=== PATIENT | male | born 1955 | race Caucasian/White ===

== ENCOUNTER 2017-04-19 11:16 | Emergency (ER) | payer OTHER ==
[2017-04-19] MEDS ORDERED: ALBUTEROL NEB 2.5 MG/3 ML INH STA (11:27)
[2017-04-19] MEDS ORDERED: DEXAMETHASONE 10 MG/ML VIAL PO STA (11:32)
[2017-04-19] MEDS ORDERED: ALBUTEROL NEB 2.5 MG/3 ML INH ONE (11:37)
[2017-04-19] MEDS ORDERED: CHERRY SYRUP 10 ML UDC PO ONE (11:52)
[2017-04-19] MEDS ORDERED: DEXAMETHASONE 10 MG/ML VIAL ONE (11:52)
--- NOTE | 2017-04-19 12:14 | XRAY Preliminary Report ---
Exam: XR Chest 2 View PA/LAT IMPRESSION: 1. Minimal left lower lobe airspace disease, favor atelectasis, less likely pneumonia. 2. Marked right hemidiaphragm elevation.. [facility] SITE ID: [id number]
--- NOTE | 2017-04-19 12:17 | XRAY Report ---
EXAM: CHEST RADIOGRAPHY EXAM DATE: 04/19/2017 11:40 AM. CLINICAL HISTORY: Cough soa. COMPARISON: None. TECHNIQUE: 2 views. FINDINGS: Lungs/Pleura: Minimal left lower lobe airspace opacities. No pleural effusion or pneumothorax. Marked right hemidiaphragm elevation Mediastinum: Visible heart size normal Other: None. IMPRESSION: 1. Minimal left lower lobe airspace disease, favor atelectasis, less likely pneumonia. 2. Marked right hemidiaphragm elevation.. [facility] Referring Provider Line: [phone] SITE ID: [id number]
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
[2017-04-19 12:52] VITALS: BP 155/82
== END 2017-04-19 12:59 | disposition home or self-care (01) ==
LOC: ED 11:16
DX: J45.901 Unspecified asthma with (acute) exacerbation (principal); I10 Essential (primary) hypertension; Z87.891 Personal history of nicotine dependence
CPT/HCPCS: 71020; 94640; 99283; 99284; A9270; J7613

== ENCOUNTER 2017-10-12 05:04 | Emergency (ER) | payer OTHER ==
[2017-10-12] MEDS ORDERED: IPRATROPIUM/ALBUTEROL 3 ML NEB INH STA (06:19)
[2017-10-12 06:23] VITALS: BP 143/101
[2017-10-12] MEDS ORDERED: DEXAMETHASONE 10 MG/ML VIAL PO STA (07:30)
--- NOTE | 2017-10-12 07:40 | ED Physician Documentation ---
PD HPI DYSPNEA - Stated complaint Stated Complaint: SOA - Chief complaint Chief Complaint: Resp - History obtained from History obtained from: Patient, Family - History of Present Illness Timing - onset: How many days ago (4) Timing - duration: Days (4) Timing - details: Still present Improved by: Inhaler/neb Associated symptoms: Fever, Cough Similar symptoms before: Diagnosis (Has history of asthma and paralyzed right hemidiaphragm.) - Treatment prior to arrival Treatment prior to arrival: DuoNeb nebulizer. - Additional information Additional information: The patient is a 62-year-old male with history of asthma and paralyzed right hemidiaphragm, who presents with shortness of breath and productive cough that started 4 days ago and has been progressing since that time. He reports intermittent fever as well as sore throat. His nebulizer treatments provide temporary improvement. He presents to the emergency department requesting steroid treatment. He has history of similar symptoms in the past, and usually the addition of steroid therapy to his nebulizer treatments adequately treats his symptoms. He denies headache, chest pain, or abdominal pain. He is 4 weeks status post bilateral inguinal hernia repairs. Review of Systems Constitutional: reports: Fever Ears: denies: Ear pain Nose: denies: Congestion Throat: reports: Sore throat Cardiac: denies: Chest pain / pressure Respiratory: reports: Dyspnea, Cough GI: denies: Abdominal Pain, Nausea, Vomiting : denies: Dysuria Skin: denies: Rash Musculoskeletal: denies: Extremity swelling Neurologic: denies: Focal weakness, Numbness, Headache PD PAST MEDICAL HISTORY - Past Medical History Cardiovascular: Hypertension, Other Respiratory: Asthma, Other (Paralyzed right hemidiaphragm) Endocrine/Autoimmune: None - Past Surgical History General: Other (4 weeks S/P bilateral inguinal hernia repairs) Ortho: Other Derm: Other - Present Medications Home Medications: Ambulatory Orders Medication Instructions Recorded Confirmed Albuterol Sulfate [Proventil Hfa 1 puffs INH .FREQ 01/26/16 10/12/17 Inhaler] Atorvastatin [Lipitor] 20 mg PO DAILY 01/26/16 10/12/17 Bupropion HCl [Wellbutrin] 450 mg PO DAILY 01/26/16 10/12/17 Losartan [Cozaar] 120 mg PO DAILY 01/26/16 10/12/17 Montelukast [Singulair] 1 tab PO DAILY 01/26/16 10/12/17 amLODIPine [Norvasc] 10 mg PO DAILY 01/26/16 10/12/17 Ciclesonide [Alvesco] 6.1 gm IH 04/19/17 Ipratropium/Albuterol [Combivent 2 puffs IH Q6H #1 aer.w.adap 04/19/17 10/12/17 Respimat] - Allergies Allergies/Adverse Reactions: Allergies Allergy/AdvReac Type Severity Reaction Status Date / Time No Known Drug Allergies Allergy Verified 01/26/16 17:06 - Living Situation Living Situation: reports: With spouse/s.o. - Social History Does the pt smoke?: No Smoking Status: Never smoker Does the pt drink ETOH?: Yes Does the pt have substance abuse?: No - Immunizations Immunizations are current?: Yes PD ED PE NORMAL - Vitals Vital signs reviewed: Yes (hypertensive) - General General: Alert and oriented X 3, Well developed/nourished - HEENT HEENT: Atraumatic, Ears normal, Pharynx benign - Neck Neck: Supple, no meningeal sign, No adenopathy, No JVD - Cardiac Cardiac: RRR, No murmur - Respiratory Respiratory: Other (Appears to be in respiratory distress, sitting up on the edge of the bed to assist with ventilation. He has diffuse bilateral expiratory wheezes with prolonged expiratory phase. Breath sounds are diminished on the right compared to the left, consistent with paralyzed hemidiaphragm.) - Abdomen Abdomen: Soft, Non tender - Back Back: No CVA TTP - Derm Derm: No rash - Extremities Extremities: No edema, No calf tenderness / cord - Neuro Neuro: Alert and oriented X 3, No motor deficit, Normal speech Results - Vitals Vitals: Oxygen O2 Source Room air - Labs Labs: Laboratory Tests 10/12/17 06:20 Influenza A (Rapid) Negative Influenza B (Rapid) Negative Influenza Types A,B Ag - PD MEDICAL DECISION MAKING - ED course Complexity details: reviewed old records, reviewed results, re-evaluated patient , considered differential, d/w patient, d/w family ED course: The patient's presentation is most consistent with viral respiratory infection, with acute asthmatic bronchitis. Influenza swab is negative. I discussed with the patient whether or not to get a chest x-ray, and he prefers not to get chest x-ray, stating he knows it will show elevation of his right hemidiaphragm , and he prefers not to get more radiation. Treatment in the emergency department included administration of DuoNeb nebulizer and oral dexamethasone, 10 mg. On repeat examination, auscultation reveals improved air movement, but continued expiratory wheezing. The patient feels subjectively much improved, and prefers to be discharged without further treatment, but requests 12 day prednisone taper. He is being discharged with prescription for prednisone. I discussed with him and his continued treatment, outpatient follow-up, as well as potentially worrisome signs or symptoms that should prompt reevaluation in the emergency department. Departure - Departure Disposition: 01 Home, Self Care Clinical Impression: Paralyzed hemidiaphragm Asthma exacerbation Qualifiers: Asthma severity: unspecified severity Asthma persistence: unspecified Qualified Code(s): J45.901 - Unspecified asthma with (acute) exacerbation Condition: Stable Instructions: ED Bronchitis Asthmatic Follow-Up: ROSANA ELI DO [Physician No Access] - Comments: Continue albuterol nebulizer treatments at home. Take prednisone, 12 day taper, as prescribed. Follow up with your primary physician within 1 week. Call to schedule appointment. Return to the emergency department if you develop increasing difficulty breathing, or otherwise worsening symptoms. Discharge Date/Time: 10/12/17 07:40
[2017-10-12] MEDS ORDERED: DEXAMETHASONE 10 MG/ML VIAL ONE (07:44)
[2017-10-12] MEDS ORDERED: CHERRY SYRUP 10 ML UDC PO ONE (07:44)
== END 2017-10-12 07:40 | disposition home or self-care (01) ==
LOC: ED 05:04
DX: J98.6 Disorders of diaphragm (principal); J45.901 Unspecified asthma with (acute) exacerbation; I10 Essential (primary) hypertension
CPT/HCPCS: 87275; 87276; 94640; 99283; A9270; J7620

== ENCOUNTER 2019-05-05 13:29 | Outpatient (CLI) | payer OTHER | END 2019-05-05 13:30 | disposition home or self-care (01) | LOC: LAB 13:29 | PROVIDERS: ATTEND Internal Medicine | DX: Z01.812 Encounter for preprocedural laboratory examination (principal) | CPT/HCPCS: 36415; 85014 ==

== ENCOUNTER 2019-06-07 00:10 | Observation (INO) | payer OTHER ==
[2019-06-07] MEDS ORDERED: SODIUM CHLORIDE 0.9% 1,000 ML IV ONE ×3 (00:37→01:30)
--- NOTE | 2019-06-07 00:43 | ED Physician Documentation ---
History of Present Illness - Stated complaint Stated Complaint: FEVER,CHILLS,DIZZY - Chief complaint Chief Complaint: General - History obtained from History obtained from: Patient, Family - History of Present Illness Timing: Today Pain level max: 3 Pain level now: 2 - Additonal information Additional information: 64-year-old male presents to the emergency department stating that he developed fevers and body aches today. Has a history of asthma. Has a right-sided hemidiaphragm but is paralyzed. 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 No significant coughing. Does have burning with urination. No back pain. No abdominal pain. Nausea but no vomiting. No diarrhea but some constipation. Has been taking Tylenol at home. Nothing makes it better or worse. Review of Systems Ten Systems: 10 systems reviewed and negative Constitutional: reports: Fever, Chills Ears: denies: Ear pain Throat: denies: Sore throat GI: reports: Nausea. denies: Abdominal Pain, Vomiting, Diarrhea, Hematemesis, Bloody / black stool Skin: denies: Rash Musculoskeletal: denies: Neck pain, Back pain Neurologic: reports: Headache (intermittent for a few days, has chronic sinus issues) PD PAST MEDICAL HISTORY - Past Medical History Cardiovascular: Hypertension, Other Respiratory: Asthma, Other (Paralyzed right hemidiaphragm) Endocrine/Autoimmune: None - Past Surgical History General: Other (4 weeks S/P bilateral inguinal hernia repairs) Ortho: Other Derm: Other - Present Medications Home Medications: Ambulatory Orders Medication Instructions Recorded Confirmed Albuterol Sulfate [Proventil Hfa 1 puffs INH PRN PRN 01/26/16 10/12/17 Inhaler] Bupropion HCl [Wellbutrin] 450 mg PO DAILY 01/26/16 10/12/17 Losartan [Cozaar] 100 mg PO DAILY 01/26/16 10/12/17 Montelukast [Singulair] 1 tab PO DAILY 01/26/16 10/12/17 Ciclesonide [Alvesco] 2 puffs IH BID 04/19/17 Atorvastatin [Lipitor] 10 mg PO DAILY 06/07/19 06/07/19 Candesartan/Hydrochlorothiazid 8 mg PO DAILY 06/07/19 06/07/19 [Atacand Hct 16-12.5 mg Tab] Dupilumab [Dupixent] 300 mg SQ 06/07/19 Furosemide 40 mg PO DAILY 06/07/19 06/07/19 Ipratropium/Albuterol [Combivent 2 puffs IH Q6H PRN 06/07/19 Respimat] Prazosin [Minipress] 4 mg PO DAILY 06/07/19 06/07/19 Salmeterol Xinafoate [Serevent 1 puffs INH BID 06/07/19 06/07/19 Diskus] Testosterone Cypionate 200 mg IM 06/07/19 lamoTRIgine [Lamictal] 150 mg PO DAILY 06/07/19 06/07/19 oxyCODONE [Roxicodone] 5 mg PO PRN PRN 06/07/19 06/07/19 - Allergies Allergies/Adverse Reactions: Allergies Allergy/AdvReac Type Severity Reaction Status Date / Time No Known Drug Allergies Allergy Verified 01/26/16 17:06 - Social History Does the pt smoke?: No Smoking Status: Never smoker Does the pt drink ETOH?: Yes Does the pt have substance abuse?: No - Immunizations Immunizations are current?: Yes PD ED PE NORMAL - Vitals Vital signs reviewed: Yes - General General: Alert and oriented X 3, No acute distress, Well developed/nourished - HEENT HEENT: PERRL, Ears normal, Moist mucous membranes, Pharynx benign - Neck Neck: Supple, no meningeal sign - Cardiac Cardiac: RRR, Strong equal pulses - Respiratory Respiratory: No respiratory distress, Clear bilaterally - Abdomen Abdomen: Soft, Non tender, Non distended - Derm Derm: Warm and dry, No rash - Extremities Extremities: No edema, No calf tenderness / cord - Neuro Neuro: Alert and oriented X 3 - Psych Psych: Normal mood, Normal affect Results - Vitals Vitals: Vital Signs - 24 hr 06/07/19 06/07/19 00:23 02:09 Temperature 38.4 C H 36.7 C Heart Rate 106 H 82 Respiratory 20 20 Rate Blood Pressure 117/61 128/74 O2 Saturation 94 95 Oxygen O2 Source Room air - Labs Labs: Laboratory Tests 06/07/19 06/07/19 06/07/19 00:42 00:42 00:42 WBC 18.1 H RBC 4.61 L Hgb 13.6 L Hct 40.3 L MCV 87.4 MCH 29.5 MCHC 33.7 RDW 13.4 Plt Count 253 MPV 9.5 Neut # (Auto) Not Reportable Lymph # (Auto) Not Reportable [place] # (Auto) Not Reportable Eos # (Auto) Not Reportable Baso # (Auto) Not Reportable Absolute Nucleated RBC Not Reportable Total Counted 100 Band Neuts % (Manual) 0 Abnorm Lymph % (Manual) 0 Nucleated RBC % Not Reportable Neutrophils # (Manual) 14.8 H Lymphocytes # (Manual) 2.0 Monocytes # (Manual) 1.3 H Eosinophils # (Manual) 0.0 Basophils # (Manual) 0.0 Differential Comment MANUAL DIFFERENTIAL WBC Morphology NORMAL APPEARANCE Platelet Estimate NORMAL (130-450,000) Platelet Morphology NORMAL APPEARANCE RBC Morph Micro Appear NORMAL APPEARANCE Sodium 139 Potassium 3.1 L Chloride 104 Carbon Dioxide 26 Anion Gap 9.0 BUN 26 H Creatinine 1.2 Estimated GFR (MDRD) 61 L Glucose 134 H Lactic Acid 1.2 Calcium 8.9 Total Bilirubin 0.8 AST 20 ALT 24 Alkaline Phosphatase 64 Total Protein 6.5 L Albumin 3.7 Globulin 2.8 Albumin/Globulin Ratio 1.3 Lipase 32 Urine Color Urine Clarity Urine pH Ur Specific [place] Urine Protein Urine Glucose (UA) Urine Ketones Urine Occult Blood Urine Nitrite Urine Bilirubin Urine Urobilinogen Ur Leukocyte Esterase Urine RBC Urine WBC Ur Squamous Epith Cells Urine Bacteria Ur Microscopic Review Influenza A (Rapid) Influenza B (Rapid) 06/07/19 06/07/19 00:52 01:55 WBC RBC Hgb Hct MCV MCH MCHC RDW Plt Count MPV Neut # (Auto) Lymph # (Auto) [place] # (Auto) Eos # (Auto) Baso # (Auto) Absolute Nucleated RBC Total Counted Band Neuts % (Manual) Abnorm Lymph % (Manual) Nucleated RBC % Neutrophils # (Manual) Lymphocytes # (Manual) Monocytes # (Manual) Eosinophils # (Manual) Basophils # (Manual) Differential Comment WBC Morphology Platelet Estimate Platelet Morphology RBC Morph Micro Appear Sodium Potassium Chloride Carbon Dioxide Anion Gap BUN Creatinine Estimated GFR (MDRD) Glucose Lactic Acid Calcium Total Bilirubin AST ALT Alkaline Phosphatase Total Protein Albumin Globulin Albumin/Globulin Ratio Lipase Urine Color YELLOW Urine Clarity CLEAR Urine pH 5.5 Ur Specific [place] 1.020 Urine Protein NEGATIVE Urine Glucose (UA) NEGATIVE Urine Ketones NEGATIVE Urine Occult Blood SMALL H Urine Nitrite NEGATIVE Urine Bilirubin NEGATIVE Urine Urobilinogen 0.2 (NORMAL) Ur Leukocyte Esterase SMALL H Urine RBC 0-5 Urine WBC 11-25 H Ur Squamous Epith Cells RARE Squamous Urine Bacteria Moderate H Ur Microscopic Review INDICATED Influenza A (Rapid) Negative Influenza B (Rapid) Negative - Rads (name of study) cxr Radiology: Prelim report reviewed, EMP read contemporaneously, See rad report (No acute abnormality) PD MEDICAL DECISION MAKING - ED course Complexity details: reviewed results, re-evaluated patient, considered differential, d/w patient ED course: 64-year-old male presents to the emergency room with a fever and tachycardia today. Appears to be urinary in source. Given Rocephin. Lactate is normal. White count is 18 with a left shift. Blood cultures drawn. Given IV fluids. Patient will be placed in observation. Discussed the case with Dr. Crowe hospitalist who accepts. This document was made in part using voice recognition software. While efforts are made to proofread this document, sound alike and grammatical errors may occur. Departure - Departure Disposition: ED Place in Observation Clinical Impression: UTI (urinary tract infection) Qualifiers: Urinary tract infection type: acute cystitis Hematuria presence: without hemat uria Qualified Code(s): N30.00 - Acute cystitis without hematuria Fever Qualifiers: Fever type: unspecified Qualified Code(s): R50.9 - Fever, unspecified Leukocytosis Qualifiers: Leukocytosis type: bandemia Qualified Code(s): D72.825 - Bandemia Condition: Stable
[2019-06-07 00:48] LABS: BASOPHILS % (AUTO) 0.3 %; EOSINOPHILS % (AUTO) 1.1 %; HGB - HEMOGLOBIN 13.6 g/dL (14.0-18.0); LYMPHOCYTES % (AUTO) 7.7 %; MEAN CORPUSCULAR HEMOGLOBIN 29.5 pg (27.0-31.0); MEAN CORPUSCULAR HGB CONC 33.7 g/dL (32.0-36.0); MEAN CORPUSCULAR VOLUME 87.4 fL (80.0-94.0); MEAN PLATELET VOLUME 9.5 fL (7.4-11.4); MONOCYTES % (AUTO) 12.6 %; NEUTROPHILS % (AUTO) 77.7 %; PLT - PLATELET COUNT 253 10^3/uL (130-450); RED BLOOD COUNT 4.61 10^6/uL (4.70-6.10); RED CELL DISTRIBUTION WIDTH 13.4 % (12.0-15.0); WHITE BLOOD COUNT 18.1 x10^3/uL (4.8-10.8)
[2019-06-07 00:54] LABS: ABNORMAL LYMPHS % (MANUAL) 0 %; BAND NEUTROPHILS % (MANUAL) 0 %
[2019-06-07 01:01] LABS: ALBUMIN 3.7 g/dL (3.2-5.5); ALBUMIN/GLOBULIN RATIO 1.3 (1.0-2.2); BILIRUBIN,TOTAL 0.8 mg/dL (0.2-1.0); CALCIUM 8.9 mg/dL (8.5-10.3); CREATININE 1.2 mg/dL (0.6-1.2); TOTAL PROTEIN 6.5 g/dL (6.7-8.2)
[2019-06-07 01:41] LABS: LYMPHOCYTES % (MANUAL) 11 %; MONOCYTES # (MANUAL) 1.3 10^3/uL (0.0-1.0)
[2019-06-07 01:43] LABS: DIFFERENTIAL COMMENT MANUAL DIFFERENTIAL; PLATELET ESTIMATE, MANUAL NORMAL (130-450,000) (NORMAL); PLATELET MORPHOLOGY NORMAL APPEARANCE (NORMAL); RBC MORPHOLOGY (MULTIPLE) NORMAL APPEARANCE (NORMAL)
[2019-06-07 01:58] LABS: BILIRUBIN,URINE NEGATIVE (NEGATIVE); CLARITY,URINE CLEAR (CLEAR); GLUCOSE, URINE (UA) NEGATIVE (NEGATIVE); KETONES,URINE (UA) NEGATIVE (NEGATIVE); LEUKOCYTE ESTERASE, URINE SMALL (NEGATIVE); NITRITE,URINE NEGATIVE (NEGATIVE); OCCULT BLOOD,URINE SMALL (NEGATIVE); PH,URINE 5.5 PH (5.0-7.5); PROTEIN,URINE NEGATIVE (NEGATIVE); UROBILINOGEN,URINE 0.2 (NORMAL) E.U./dL (NORMAL)
[2019-06-07 02:10] LABS: BACTERIA,URINE Moderate /HPF (None Seen); RBC,URINE 0-5 /HPF (0-5); SQUAMOUS EPITHELIAL CELL,UR RARE Squamous (<= Few)
[2019-06-07] MEDS ORDERED: cefTRIAXone 1 GM VIAL IVP STA (02:18)
--- NOTE | 2019-06-07 02:39 | XRAY Report ---
Reason: fever Procedure Date: 06/07/2019 Accession Number: [id number] / [id number] Procedure: XR - Chest 2 View X-Ray CPT Code: 12258 FULL RESULT: EXAM: CHEST RADIOGRAPHY EXAM DATE: 06/07/2019 02:26 AM CLINICAL HISTORY: Fever. COMPARISON: XR CHEST 2 VIEWS 05/13/2019 6:34 AM, CT CHEST W CONTRAST 04/01/2019 10:05 AM. TECHNIQUE: 2 views. FINDINGS: Lungs/Pleura: Chronic right hemidiaphragm elevation. No focal pneumonia or edema. No pneumothorax or significant effusion. Mediastinum: Heart and mediastinal contours are stable, within normal limits. Other: None. IMPRESSION: No acute process seen in the chest. [facility]
[2019-06-07] MEDS ORDERED: IBUPROFEN 800 MG TABLET PO STA (02:52)
[2019-06-07] MEDS ORDERED: SODIUM CHLORIDE FLUSH 0.9% 10 ML SYRINGE IVP PRN (03:34)
[2019-06-07] MEDS ORDERED: ONDANSETRON 4 MG/2 ML VIAL IVP PRN (03:34)
[2019-06-07] MEDS ORDERED: SODIUM CHLORIDE 0.9% 1,000 ML IV SCH (04:00)
[2019-06-07] MEDS ORDERED: IPRATROPIUM/ALBUTEROL 3 ML NEB INH PRN (04:05)
[2019-06-07] MEDS ORDERED: POTASSIUM CHLORIDE 20 MEQ TABLET PO ONE (04:11)
--- NOTE | 2019-06-07 04:14 | HISTORY & PHYSICAL EXAMINATION ---
Chief Complaint - Chief Complaint Chief Complaint: Fever and chills History of Present Illness - Admitted From Admitted From:: Home - History Obtained From Records Reviewed: Yes History obtained from: Patient, ER Physician - History of Present Illness HPI Comment/Other: This is a 64 year old male with a past medical history significant for hypertens ion, BPH s/p TURP x5, PTSD, and asthma who presents from home complaining of fevers and chills. He states his symptoms began around 6pm last night and were acute in nature. He has associated dysuria and urgency. He also reports fatigue, malaise, nausea, and headache. He denies pelvic pain, back pain, and pain with defecation. He reports no hematuria. Denies prior history of UTI or kidney stones. He was hospitalized 4 weeks at [facility] for mediastinal mass and underwent thoracoscopy. This was complicated by a prolonged ICU stay. He states he spiked a fever just prior to discharge and he was sent home on Augmentin. He reports doing well since then. Denies abdominal, vomiting, chest p ain, and dyspnea. In the ER, he was found to be febrile, tachycardic, and normotensive. Labs were significant for leukocytosis with a left shift, and hypokalemia. Urinalysis revealed pyuria, leukocyte esterase, and bacteruria. Influenza was negative. Chest x-ray was unremarkable. The patient initially wanted to be discharged home but he ultimately agreed to admission as he still feels quite fatigued. Of note, I did speak with the patient regarding code status and he would like to be a full code. History - Past Medical History Cardiovascular: reports: Hypertension, Other Respiratory: reports: Asthma, Other (Paralyzed right hemidiaphragm) Endocrine/Autoimmune: reports: None : reports: Benign prostate hypertrophy Psych: reports: Post traumatic stress disorder MRSA Hx?: No - Past Surgical History General: reports: Other (4 weeks S/P bilateral inguinal hernia repairs) Ortho: reports: Other (Left bicep tendon repair) Derm: reports: Other Other past surgical history: TURP x5 - Family & Social History Family History Comment/Other: His father from [place] in his 50's. His mother had breast cancer and dementia. His sisters also had breast cancer. Living arrangement: At home Living Situation: With spouse/s.o. Social History Notes: He lives on [address] with his . 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 He used to smoke three packs of cigarettes a day but quite 20 years ago after smoking for 15 years. He drinks alcohol occasionally. - Substance History Use: Uses substance without health or social issues: NONE Meds/Allgy - Home Medications Home Medications: Ambulatory Orders Medication Instructions Recorded Confirmed Albuterol Sulfate [Proventil Hfa 1 puffs INH PRN PRN 01/26/16 10/12/17 Inhaler] Bupropion HCl [Wellbutrin] 450 mg PO DAILY 01/26/16 10/12/17 Losartan [Cozaar] 100 mg PO DAILY 01/26/16 10/12/17 Montelukast [Singulair] 1 tab PO DAILY 01/26/16 10/12/17 Ciclesonide [Alvesco] 2 puffs IH BID 04/19/17 Atorvastatin [Lipitor] 10 mg PO DAILY 06/07/19 06/07/19 Candesartan/Hydrochlorothiazid 8 mg PO DAILY 06/07/19 06/07/19 [Atacand Hct 16-12.5 mg Tab] Dupilumab [Dupixent] 300 mg SQ 06/07/19 Furosemide 40 mg PO DAILY 06/07/19 06/07/19 Ipratropium/Albuterol [Combivent 2 puffs IH Q6H PRN 06/07/19 Respimat] Prazosin [Minipress] 4 mg PO DAILY 06/07/19 06/07/19 Salmeterol Xinafoate [Serevent 1 puffs INH BID 06/07/19 06/07/19 Diskus] Testosterone Cypionate 200 mg IM 06/07/19 lamoTRIgine [Lamictal] 150 mg PO DAILY 06/07/19 06/07/19 oxyCODONE [Roxicodone] 5 mg PO PRN PRN 06/07/19 06/07/19 - Allergies Allergies/Adverse Reactions: Allergies Allergy/AdvReac Type Severity Reaction Status Date / Time No Known Drug Allergies Allergy Verified 01/26/16 17:06 Review of Systems - Constitutional Constitutional: reports: Fatigue, Fever, Chills, Malaise, Weakness - Cardiovascular Cariovascular: denies: Chest pain, Exertional dyspnea, Decr. exercise tolerance - Respiratory Respiratory: denies: Cough, SOB at rest, SOB with exertion - Gastrointestinal Gastrointestinal: reports: Nausea. denies: Abdominal pain, Constipation, Diarrhea, Vomiting - Genitourinary Genitourinary: reports: Dysuria, Urgency. denies: Hematuria, Flank pain - Musculoskeletal Musculoskeletal: denies: Muscle weakness - Integumentary Integumentary: denies: Rash - Neurological Neurological: reports: General weakness, Headache. denies: Focal weakness - All Other Systems All Other Systems: reports: Reviewed and negative Prior Level of Functionality: Independent with ADL's. Exam - Vital Signs Reviewed Vital Signs: Yes Vital Signs: Vital Signs x48h Temp Pulse Resp BP Pulse Ox 06/07/19 02:09 36.7 C 82 20 128/74 95 06/07/19 00:23 38.4 C H 106 H 20 117/61 94 - Physical Exam General Appearance: positive: Alert, Mild distress Eyes Bilateral: positive: Normal inspection ENT: positive: ENT inspection nml Neck: positive: Nml inspection Respiratory: positive: No respiratory distress. negative: Wheezes, Rales, Rhonchi Cardiovascular: positive: Regular rate & rhythm, No murmur. negative: Tachycardia, Bradycardia, Systolic murmur, Diastolic murmur Abdomen: positive: Non-tender, Nml bowel sounds, No distention. negative: Tenderness, Guarding, Rebound Rectal: positive: Other (No testicular pain.). negative: Enlarged prostate, Tender prostate Back: negative: CVA tenderness (R), CVA tenderness (L) Skin: positive: Color nml, No rash, Warm, Dry Extremities: positive: Pedal edema (Trace pitting edema in lower extremities) Neurologic/Psychiatric: positive: Oriented x3, Motor nml. negative: Disoriented to person, Disoriented to place, Disoriented to time, Weakness Sepsis Event Note (H) - Evaluation Current Stage of Sepsis: Sepsis Possible source of Sepsis: positive: Genitourinary - Sepsis Criteria Sepsis Criteria: Recorded Temperature greater than 38.3C or Less than 36C, Recorded Heart Rate greater than 90 bpm, WBC count greater than 12,000 or less than 4000 Conclusion/Plan - Problem List (1) Sepsis Conclusion/Plan: This appears to be secondary to a urinary tract infection. Presented with fever, tachycardia, and leukocytosis with left shift. His chills and rigors are co ncerning for bacteremia. Urinalysis suggestive of infection. No other obvious source of infection. Received Ceftriaxone in the ER. - Start Ciprofloxacin 400mg IV q12 - IV hydration - Tylenol PRN - Follow up urine and blood cultures (2) UTI (urinary tract infection) Conclusion/Plan: This is the cause of his sepsis. His rectal exam was unremarkable and he does not have pelvic or perineal pain so this is less likely Prostatitis. - IV antibiotics as mentioned above - Will transition to oral antibiotics as sepsis resolves, suspect he will likely require a two week course Qualifiers: Urinary tract infection type: acute cystitis Hematuria presence: without hematuria Qualified Code(s): N30.00 - Acute cystitis without hematuria (3) PTSD (post-traumatic stress disorder) Conclusion/Plan: Stable. He is on Lamictal, Wellbutrin, and Prazosin at home which will be continued. (4) Hypertension Conclusion/Plan: He is currently normotensive. On Candesartan and Losartan along with Lasix at home. - Hold home antihypertensives in the setting of sepsis - He ideally should not be on two ARB's and this should be reconciled on discharge (5) BPH (benign prostatic hyperplasia) Conclusion/Plan: He has had multiple TURP's in the past. Follows with Urology in [place]. Not on medications as they were not effective in the past. (6) Hypokalemia Conclusion/Plan: This may secondary to his Lasix. Will replace orally and recheck. (7) Asthma Conclusion/Plan: Not in exacerbation. He is on Salmeterol, Alvesco and Combivent at home. Also takes Dupixent for his severe asthma. - Will start Formoterol and Budesonide while hospitalized - Duonebs PRN Qualifiers: Asthma severity: unspecified severity Asthma complication type: with acute exacerbation - Lab Results Lab results reviewed: Yes Fish Bones: 06/07/19 00:42 06/07/19 00:42 Core Measures - Anticipated LOS I expect patient to be DC'd or transferred within 96 hours.: Yes - Issues Hospital Issues and Management Plan: Sepsis 2/2 UTI requiring IV antibiotics. - DVT/VTE - Prophylaxis VTE/DVT Device ordered at admit?: Yes VTE/DVT Prophylaxis med ordered at admit?: Yes
[2019-06-07] MEDS ORDERED: CIPROFLOXACIN 400 MG/200 ML 200 ML IV SCH (05:00)
[2019-06-07 06:06] LABS: BASOPHILS % (AUTO) 0.3 %; EOSINOPHILS % (AUTO) 0.9 %; HGB - HEMOGLOBIN 12.1 g/dL (14.0-18.0); LYMPHOCYTES % (AUTO) 11.1 %; MEAN CORPUSCULAR HEMOGLOBIN 29.8 pg (27.0-31.0); MEAN CORPUSCULAR HGB CONC 33.9 g/dL (32.0-36.0); MEAN CORPUSCULAR VOLUME 87.9 fL (80.0-94.0); MEAN PLATELET VOLUME 9.6 fL (7.4-11.4); MONOCYTES % (AUTO) 10.8 %; NEUTROPHILS % (AUTO) 75.9 %; PLT - PLATELET COUNT 217 10^3/uL (130-450); RED BLOOD COUNT 4.06 10^6/uL (4.70-6.10); RED CELL DISTRIBUTION WIDTH 13.4 % (12.0-15.0); WHITE BLOOD COUNT 17.7 x10^3/uL (4.8-10.8)
[2019-06-07 06:09] LABS: ABNORMAL LYMPHS % (MANUAL) 0 %; BAND NEUTROPHILS % (MANUAL) 0 %
[2019-06-07 06:18] LABS: CALCIUM 7.8 mg/dL (8.5-10.3); CREATININE 1.1 mg/dL (0.6-1.2); CRP - C-REACTIVE PROTEIN 2.5 mg/dL (0-1.0); MAGNESIUM 1.8 mg/dL (1.7-2.8); PHOSPHORUS 3.5 mg/dL (2.5-4.6)
[2019-06-07 06:42] LABS: LYMPHOCYTES % (MANUAL) 17 %; MONOCYTES # (MANUAL) 1.1 10^3/uL (0.0-1.0)
[2019-06-07 06:43] LABS: DIFFERENTIAL COMMENT MANUAL DIFFERENTIAL; PLATELET ESTIMATE, MANUAL NORMAL (130-450,000) (NORMAL); PLATELET MORPHOLOGY NORMAL APPEARANCE (NORMAL); RBC MORPHOLOGY (MULTIPLE) NORMAL APPEARANCE (NORMAL)
[2019-06-07] MEDS ORDERED: POTASSIUM CHLORIDE INJ 40 MEQ in SODIUM CHLORIDE 0.9% 480 ML IV ONE (06:55)
[2019-06-07] MEDS: BUDESONIDE 0.5 MG/2 ML NEB INH SCH ×2 (07:47→19:48)
[2019-06-07] MEDS: FORMOTEROL FUMARATE NEB 20 MCG/2 ML INH SCH ×2 (07:47→19:48)
[2019-06-07] MEDS: POLYETHYLENE GLYCOL 3350 17 GM PACKET PO SCH (08:22)
[2019-06-07] MEDS: ENOXAPARIN 40 MG/0.4 ML SYRINGE SUBQ SCH (08:24)
[2019-06-07] MEDS: SODIUM CHLORIDE FLUSH 0.9% 10 ML SYRINGE IVP SCH ×3 (08:24→23:43)
[2019-06-07] MEDS: lamoTRIgine 100 MG TABLET PO SCH (08:27)
[2019-06-07] MEDS ORDERED: buPROPion XL 150 MG TABLET PO SCH (09:00)
[2019-06-07] MEDS: ACETAMINOPHEN 325 MG TABLET PO PRN ×3 (11:13→20:57)
[2019-06-07] MEDS ORDERED: LAMOTRIGINE 150 MG PO SCH (12:00)
[2019-06-07 12:33] LABS: MUDS CUTOFF CONCENTRATIONS CUTOFF CONC BELOW:
[2019-06-07 12:45] LABS: AMPHETAMINE SCREEN,URINE POSITIVE (NEGATIVE); BENZODIAZEPINES SCREEN, URINE NEGATIVE (NEGATIVE); COCAINE SCREEN URINE NEGATIVE (NEGATIVE); METHADONE SCREEN, URINE NEGATIVE (NEGATIVE); METHAMPHETAMINES SCREEN, URINE NEGATIVE (NEGATIVE); OPIATE SCREEN, URINE NEGATIVE (NEGATIVE); OXYCODONE SCREEN, URINE NEGATIVE (NEGATIVE); PROPOXYPHENE SCREEN, URINE NEGATIVE (NEGATIVE); TRICYCLIC ANTIDEPRESSANT,URINE NEGATIVE (NEGATIVE)
[2019-06-07] MEDS: NS W/20 MEQ KCL 1,000 ML IV SCH ×2 (13:05→21:37)
[2019-06-07] MEDS: CEFEPIME 2 GM in SODIUM CHLORIDE 0.9% MINIBAG 100 ML IV SCH ×2 (13:06→20:59)
[2019-06-07] MEDS: ATORVASTATIN 10 MG TABLET PO SCH (20:57)
[2019-06-07] MEDS: PRAZOSIN 1 MG CAPSULE PO SCH (20:57)
[2019-06-07] MEDS ORDERED: IBUPROFEN 400 MG TABLET PO SCH (23:45)
[2019-06-08] MEDS: NS W/20 MEQ KCL 1,000 ML IV SCH ×2 (05:09→12:58)
[2019-06-08 05:29] LABS: BASOPHILS % (AUTO) 0.3 %; EOSINOPHILS % (AUTO) 2.1 %; HGB - HEMOGLOBIN 11.1 g/dL (14.0-18.0); LYMPHOCYTES % (AUTO) 15.1 %; MEAN CORPUSCULAR HEMOGLOBIN 28.5 pg (27.0-31.0); MEAN CORPUSCULAR HGB CONC 31.4 g/dL (32.0-36.0); MONOCYTES % (AUTO) 12.1 %; NEUTROPHILS % (AUTO) 69.9 %; PLT - PLATELET COUNT 203 10^3/uL (130-450); RED BLOOD COUNT 3.89 10^6/uL (4.70-6.10); WHITE BLOOD COUNT 17.5 x10^3/uL (4.8-10.8)
[2019-06-08 05:33] LABS: ABNORMAL LYMPHS % (MANUAL) 0 %
[2019-06-08 05:38] LABS: CALCIUM 7.6 mg/dL (8.5-10.3); MAGNESIUM 2.2 mg/dL (1.7-2.8); PHOSPHORUS 2.4 mg/dL (2.5-4.6)
[2019-06-08 06:01] LABS: BAND NEUTROPHILS % (MANUAL) 1 %; EOSINOPHILS # (MANUAL) 0.2 10^3/uL (0-0.7); LYMPHOCYTES # (MANUAL) 2.8 10^3/uL (1.5-3.5); LYMPHOCYTES % (MANUAL) 16 %; MONOCYTES # (MANUAL) 1.4 10^3/uL (0.0-1.0); RBC MORPHOLOGY (MULTIPLE) NORMAL APPEARANCE (NORMAL)
[2019-06-08 06:02] LABS: DIFFERENTIAL COMMENT MANUAL DIFFERENTIAL; PLATELET ESTIMATE, MANUAL NORMAL (130-450,000) (NORMAL)
[2019-06-08] MEDS ORDERED: VANCOMYCIN PER PHARMACY 100 GM in SODIUM CHLORIDE 0.9% 250 ML IV SCH (08:00)
[2019-06-08] MEDS: buPROPion XL 150 MG TABLET PO SCH (08:26)
[2019-06-08] MEDS: CEFEPIME 2 GM in SODIUM CHLORIDE 0.9% MINIBAG 100 ML IV SCH (08:26)
[2019-06-08] MEDS: ASPIRIN CHEW 81 MG TABLET PO SCH (08:26)
[2019-06-08] MEDS: lamoTRIgine 100 MG TABLET PO SCH (08:26)
[2019-06-08] MEDS: MONTELUKAST 10 MG TABLET PO SCH (08:27)
[2019-06-08] MEDS: POLYETHYLENE GLYCOL 3350 17 GM PACKET PO SCH (08:28)
[2019-06-08] MEDS: SODIUM CHLORIDE FLUSH 0.9% 10 ML SYRINGE IVP SCH ×4 (08:28→23:46)
[2019-06-08] MEDS ORDERED: VANCOMYCIN INJ 2 GM in SODIUM CHLORIDE 0.9% 500 ML IV ONE (09:00)
[2019-06-08] MEDS: ENOXAPARIN 40 MG/0.4 ML SYRINGE SUBQ SCH (09:44)
--- NOTE | 2019-06-08 13:37 | Discharge Plan ---
Discharge Plan Problem Reviewed?: Yes Disposition: Home, Self Care Condition: Good Diet: Regular Activity Restrictions: Activity as Tolerated Shower Restrictions: No Driving Restrictions: No Instruction Topics: UTI, Potassium, Hypokalemia Dc No Smoking: If you smoke, Please STOP! Call for help.
[2019-06-08] MEDS: BUDESONIDE 0.5 MG/2 ML NEB INH SCH (13:51)
[2019-06-08] MEDS: FORMOTEROL FUMARATE NEB 20 MCG/2 ML INH SCH (13:51)
[2019-06-08] MEDS: ACETAMINOPHEN 325 MG TABLET PO PRN ×2 (16:10→23:46)
--- NOTE | 2019-06-08 16:38 | PROVIDER PROGRESS NOTE ---
Subjective - Prog Note Date Prog Note Date: 06/08/19 Prog Note Time: 16:36 - Subjective Pt reports feeling: Improved Subjective: Archie Colon) complains of needing to get home today. He denies chest pain, headaches, shortness of breath, nausea, vomiting, diarrhea, a new rash, or dizziness. He states he will stay given his recent fevers, culture results not being back yet, and the need for ongoing IV antibiotics. Current Medications - Current Medications Current Medications: Active Medications: Acetaminophen (Tylenol) 650 mg PO Q4HR PRN Albuterol/Ipratropium (Duoneb) 3 ml INH RTQID PRN Aspirin (St Julio Aspirin) 81 mg PO DAILY LASHONDA Atorvastatin Calcium (Lipitor) 10 mg PO QPM LASHONDA Budesonide (Pulmicort) 0.5 mg INH RTBID LASHONDA Bupropion HCl (Wellbutrin Xl) 450 mg PO DAILY LASHONDA Enoxaparin Sodium (Lovenox) 40 mg SUBQ DAILY [facility] Formoterol Fumarate (Perforomist) 20 mcg INH RTBID LASHONDA Cefepime HCl 2 gm/ Sodium (Chloride) 100 mls @ 200 mls/hr IV BID LASHONDA Vancomycin HCl 1.5 gm/ Sodium (Chloride) 500 mls @ 250 mls/hr IV Q12H LASHONDA Lamotrigine (Lamictal) 150 mg PO DAILY [facility] Montelukast Sodium (Singulair) 10 mg PO DAILY [facility] Non-Formulary Medication (Ciclesonide [Alvesco]) 2 puffs IH BID [facility] Non-Formulary Medication (Salmeterol Xinafoate [Serevent Diskus]) 1 puffs INH BID LASHONDA Ondansetron HCl (Zofran Inj) 4 mg IVP Q6HR PRN Polyethylene Glycol (Miralax) 17 gm PO DAILY LASHONDA Prazosin HCl (Minipress) 4 mg PO QPM [facility] HOME meds: Albuterol Sulfate [Proventil Hfa Inhaler] 1 puffs INH PRN PRN 01/26/16 Montelukast [Singulair] 10 mg PO DAILY 01/26/16 Ciclesonide [Alvesco] 2 puffs IH BID 04/19/17 Aspirin Chewable [St Julio Aspirin] 81 mg PO DAILY 06/07/19 Atorvastatin [Lipitor] 10 mg PO DAILY 06/07/19 Candesartan Cilexetil 8 mg PO BID 06/07/19 Cholecalciferol (Vitamin D3) [Vitamin D3] 1,000 unit PO DAILY 06/07/19 Dextroamphetamine/Amphetamine [Adderall Xr 5 mg Capsule] 5 mg PO Q48H 06/07/19 Dupilumab [Dupixent] 300 mg SQ Q14D 06/07/19 Folic Acid 1 mg PO DAILY 06/07/19 Furosemide 40 mg PO DAILY 06/07/19 Ipratropium/Albuterol [Combivent Respimat] 2 puffs IH Q6H PRN 06/07/19 Multivitamin [Multiple Vitamins] 1 each PO DAILY 06/07/19 [place]-3S/Dha/Epa/Fish Oil [Fish Oil 1,000 mg Softgel] 1 each PO DAILY 06/07/19 Potassium Chloride 10 meq PO DAILY 06/07/19 Prazosin [Minipress] 4 mg PO QPM 06/07/19 Salmeterol Xinafoate [Serevent Diskus] 1 puffs INH BID 06/07/19 Testosterone Cypionate 200 mg IM MOTH 06/07/19 Zolpidem Tartrate [Ambien] 10 mg PO QPM PRN 06/07/19 buPROPion HCl [Bupropion Xl] 450 mg PO DAILY 06/07/19 lamoTRIgine [Lamictal] 150 mg PO DAILY 06/07/19 oxyCODONE [Roxicodone] 5 mg PO PRN PRN 06/07/19 Objective - Vital Signs/Intake & Output Reviewed Vital Signs: Yes Vital Signs: Vital Signs x48h Temp Pulse Resp BP Pulse Ox 06/08/19 15:00 37.3 C 65 18 133/78 H 97 Intake & Output: Intake & Output 06/05/19 06/06/19 06/07/19 06/08/19 23:59 23:59 23:59 23:59 Intake Total 5690.00 3678.750 Output Total 1000 1150 Balance 4690.00 2528.750 - Objective General Appearance: positive: Alert, Mild distress, Anxious Eyes Bilateral: positive: PERRL Eyes: OU Conjunctivae pale ENT: positive: Pharynx nml, No signs of dehydration Neck: positive: Thyroid nml, No JVD, Trachea midline Respiratory: positive: Chest non-tender, No respiratory distress, Breath sounds nml, Other (diminished, bilaterally) Cardiovascular: positive: Regular rate & rhythm, Systolic murmur, Decreased pulse(s) Peripheral Pulses: 1+ Radial (R), 1+ Radial (L) Abdomen: positive: Non-tender, Nml bowel sounds, Hepatomegaly, Other (rounded, soft) Back: positive: Nml inspection, Other (intermittent pain in the small of the back -midline) Skin: positive: Color nml, No rash, Warm, Dry, Other (left chest healed chest inscisions, no s/s of infection) Extremities: positive: Non-tender, Full ROM, Pedal edema (dependent-trace, abdominal edema) Neurologic/Psychiatric: positive: Oriented x3, CN's nml (2-12), Motor nml, Sensation nml, Mood/affect nml Reflexes: Bicep (R): 3+, Bicep (L): 3+ - Lab Results Fish Bones: 06/08/19 04:50 06/08/19 04:50 Other Labs: Lab Results x24hrs 06/08/19 06/08/19 Range/Units 04:50 04:50 WBC 17.5 H (4.8-10.8) x10^3/uL RBC 3.89 L (4.70-6.10) 10^6/uL Hgb 11.1 L (14.0-18.0) g/dL Hct 35.4 L (42.0-52.0) % MCV 91.0 (80.0-94.0) fL MCH 28.5 (27.0-31.0) pg MCHC 31.4 L (32.0-36.0) g/dL RDW 14.0 (12.0-15.0) % Plt Count 203 (130-450) 10^3/uL MPV 10.0 (7.4-11.4) fL Neut # (Auto) Not Reportable Lymph # (Auto) Not Reportable White # (Auto) Not Reportable Eos # (Auto) Not Reportable Baso # (Auto) Not Reportable Absolute Nucleated RBC Not Reportable Total Counted 100 Band Neuts % (Manual) 1 (0 - 10) % Abnorm Lymph % (Manual) 0 % Nucleated RBC % Not Reportable Neutrophils # (Manual) 13.1 H (1.5-6.6) 10^3/uL Lymphocytes # (Manual) 2.8 (1.5-3.5) 10^3/uL Monocytes # (Manual) 1.4 H (0.0-1.0) 10^3/uL Eosinophils # (Manual) 0.2 (0-0.7) 10^3/uL Basophils # (Manual) 0.0 (0-0.1) 10^3/uL Differential Comment MANUAL DIFFERENTIAL Platelet Estimate NORMAL (130-450,000) (NORMAL) RBC Morph Micro Appear NORMAL APPEARANCE (NORMAL) Sodium 140 (135-145) mmol/L Potassium 3.8 (3.5-5.0) mmol/L Chloride 109 (101-111) mmol/L Carbon Dioxide 25 (21-32) mmol/L Anion Gap 6.0 (6-13) BUN 16 (6-20) mg/dL Creatinine 1.0 (0.6-1.2) mg/dL Estimated GFR (MDRD) 75 L (>89) Glucose 100 (70-100) mg/dL Calcium 7.6 L (8.5-10.3) mg/dL Phosphorus 2.4 L (2.5-4.6) mg/dL Magnesium 2.2 (1.7-2.8) mg/dL ABX Reporting Has patient been on IV antibiotics over the past 48 hours?: Yes Sepsis Event Note (H) - Evaluation Current Stage of Sepsis: Sepsis Possible source of Sepsis: positive: Genitourinary - Sepsis Criteria Sepsis Criteria: Recorded Temperature greater than 38.3C or Less than 36C, Recorded Heart Rate greater than 90 bpm, WBC count greater than 12,000 or less than 4000 Assessment/Plan - Problem List (1) Sepsis Impression: - Patient continues to have fevers, despite starting vancomycin today - Stopped cefepime, started meropenem - No hypotension, intermittent low back pain, + dysuria with complaints of burning while urinating - No AMS, some tachycardia noted in the 100's - Overall poor feeling noted by patient - WBC count remains elevated at 17.5, admission was 18.1 - No growth to date x2 blood cultures drawn on admission, and 24 hours later - Preliminary urine culture with e coli - Lab (microbiology) reports that the final may be ready on 06/09/2019 ~ 0900 AM - Recent CV surgical procedure on 05/09/2019 without post-op complications Plan: continue Q4H VS, tylenol, oxycodone for symptom management (2) Complicated UTI (urinary tract infection) Impression: - Recently was at [facility] for a mediastinal mass removal, status post montiel, status post left chest tube - Continues to have dysuria with burning on urination, no retention - Normal prostate exam on admission, no prostate exam since that time - Intermittent low back pain - Continues to have fevers - Changed Cefepime to meropenem, continues on vancomycin - No imaging on admission, likely in the absence of acute mid flank pain - Now renal US has been ordered Plan: Continue treatment with IV antibiotics, pyridium for dysuria, bladder scans, await renal US results (3) BPH (benign prostatic hyperplasia) Impression: - Listed in history - Takes prazosin, testosterone at home Plan: continue home med, monitor for retention (4) Fever Impression: - Continues to have fevers, despite IV antibiotics - Not higher than 39 C - Tylenol with little effect, now added IV toradol Plan: continue to monitor VS, treat illness, monitor for AMS and/or sepsis Qualifiers: Fever type: unspecified Qualified Code(s): R50.9 - Fever, unspecified (5) LVH (left ventricular hypertrophy) Impression: -noted in past medical history Plan: Off tele (6) PTSD (post-traumatic stress disorder) Impression: - Patient has threatened to leave AMA, but his was here today - Admits to leaving AMA several years ago after getting a cardiac cath (7) Reactive airway disease Impression: - Asked to resume home inhalers, so these are now on current med list - No respiratory distress today
[2019-06-08] MEDS ORDERED: KETOROLAC 30 MG/ML VIAL IVP PRN (18:00)
[2019-06-08] MEDS: MEROPENEM 1 GM in SODIUM CHLORIDE 0.9% MINIBAG 100 ML IV SCH (18:35)
[2019-06-08] MEDS: oxyCODONE 5 MG TABLET PO PRN ×2 (18:37→22:39)
[2019-06-08] MEDS: VANCOMYCIN INJ 1.5 GM in SODIUM CHLORIDE 0.9% 500 ML IV SCH (20:49)
[2019-06-08] MEDS: ATORVASTATIN 10 MG TABLET PO SCH (20:49)
[2019-06-08] MEDS: PRAZOSIN 1 MG CAPSULE PO SCH (20:49)
[2019-06-08] MEDS: CICLESONIDE INH SCH (21:07)
[2019-06-09] MEDS: MEROPENEM 1 GM in SODIUM CHLORIDE 0.9% MINIBAG 100 ML IV SCH ×3 (02:30→18:32)
[2019-06-09 05:27] LABS: BASOPHILS # (AUTO) 0.1 10^3/uL (0.0-0.1); BASOPHILS % (AUTO) 0.6 %; EOSINOPHILS # (AUTO) 0.6 10^3/uL (0.0-0.7); EOSINOPHILS % (AUTO) 4.5 %; HGB - HEMOGLOBIN 11.7 g/dL (14.0-18.0); LYMPHOCYTES # (AUTO) 2.1 10^3/uL (1.5-3.5); LYMPHOCYTES % (AUTO) 17.3 %; MEAN CORPUSCULAR HEMOGLOBIN 29.3 pg (27.0-31.0); MEAN CORPUSCULAR HGB CONC 32.7 g/dL (32.0-36.0); MEAN CORPUSCULAR VOLUME 89.5 fL (80.0-94.0); MEAN PLATELET VOLUME 10.1 fL (7.4-11.4); MONOCYTES # (AUTO) 1.4 10^3/uL (0.0-1.0); MONOCYTES % (AUTO) 11.1 %; NEUTROPHILS # (AUTO) 8.1 10^3/uL (1.5-6.6); PLT - PLATELET COUNT 203 10^3/uL (130-450); RED CELL DISTRIBUTION WIDTH 13.6 % (12.0-15.0); WHITE BLOOD COUNT 12.3 x10^3/uL (4.8-10.8)
[2019-06-09 05:40] LABS: ALBUMIN 2.9 g/dL (3.2-5.5); CREATININE 0.8 mg/dL (0.6-1.2); CRP - C-REACTIVE PROTEIN 6.4 mg/dL (0-1.0); MAGNESIUM 2.1 mg/dL (1.7-2.8); PHOSPHORUS 2.5 mg/dL (2.5-4.6); TOTAL PROTEIN 5.8 g/dL (6.7-8.2)
[2019-06-09] MEDS ORDERED: FORMOTEROL FUMARATE NEB 20 MCG/2 ML INH SCH (07:00)
[2019-06-09] MEDS: BUDESONIDE 0.5 MG/2 ML NEB INH SCH ×3 (07:35→18:18)
[2019-06-09 08:51] LABS: VANCOMYCIN,RANDOM 10.6 ug/mL
[2019-06-09] MEDS: MONTELUKAST 10 MG TABLET PO SCH (09:14)
[2019-06-09] MEDS: ASPIRIN CHEW 81 MG TABLET PO SCH (09:14)
[2019-06-09] MEDS: lamoTRIgine 100 MG TABLET PO SCH (09:14)
[2019-06-09] MEDS: buPROPion XL 150 MG TABLET PO SCH (09:16)
[2019-06-09] MEDS: ENOXAPARIN 40 MG/0.4 ML SYRINGE SUBQ SCH (09:17)
[2019-06-09] MEDS: SODIUM CHLORIDE FLUSH 0.9% 10 ML SYRINGE IVP SCH ×2 (09:17→18:43)
[2019-06-09] MEDS: POLYETHYLENE GLYCOL 3350 17 GM PACKET PO SCH (09:18)
[2019-06-09] MEDS: CICLESONIDE INH SCH ×2 (09:18→21:00)
[2019-06-09] MEDS: VANCOMYCIN INJ 1.5 GM in SODIUM CHLORIDE 0.9% 500 ML IV SCH ×2 (09:29→20:41)
[2019-06-09] MEDS: ACETAMINOPHEN 325 MG TABLET PO PRN ×2 (10:01→17:36)
--- NOTE | 2019-06-09 14:35 | PROVIDER PROGRESS NOTE ---
Subjective - Prog Note Date Prog Note Date: 06/09/19 - Subjective Pt reports feeling: Improved Subjective: pt report he did not have fever today. pt refused to have US of retroperitoneal. today pt request to have. pt denies chest pain, shortness of breath Current Medications - Current Medications Current Medications: Active Medications Acetaminophen (Tylenol) 650 mg PO Q4HR PRN PRN Reason: Pain 1 to 4 Last Admin: 06/09/19 10:01 Dose: 650 mg Albuterol/Ipratropium (Duoneb) 3 ml INH RTQID PRN PRN Reason: Shortness of Air/Wheezing Aspirin (St Julio Aspirin) 81 mg PO DAILY [facility] Last Admin: 06/09/19 09:14 Dose: 81 mg Atorvastatin Calcium (Lipitor) 10 mg PO QPM [facility] Last Admin: 06/08/19 20:49 Dose: 10 mg Budesonide (Pulmicort) 0.5 mg INH RTBID [facility] Last Admin: 06/09/19 09:47 Dose: Not Given Bupropion HCl (Wellbutrin Xl) 450 mg PO DAILY [facility] Last Admin: 06/09/19 09:16 Dose: 450 mg Enoxaparin Sodium (Lovenox) 40 mg SUBQ DAILY [facility] Last Admin: 06/09/19 09:17 Dose: 40 mg Formoterol Fumarate (Perforomist) 20 mcg INH RTBID [facility]ON[facility] Vancomycin HCl 1.5 gm/ Sodium (Chloride) 500 mls @ 250 mls/hr IV Q12H [facility] Last Infusion: 06/09/19 11:26 Dose: Infused Meropenem 1 gm/ Sodium (Chloride) 100 mls @ 200 mls/hr IV Q8H [facility] Last Infusion: 06/09/19 12:03 Dose: Infused Ketorolac Tromethamine (Toradol Inj (30mg)) 30 mg IVP Q6HR PRN PRN Reason: PAIN Stop: 06/13/19 17:59 Lamotrigine (Lamictal) 150 mg PO DAILY [facility] Last Admin: 06/09/19 09:14 Dose: 150 mg Montelukast Sodium (Singulair) 10 mg PO DAILY [facility] Last Admin: 06/09/19 09:14 Dose: 10 mg Ondansetron HCl (Zofran Inj) 4 mg IVP Q6HR PRN PRN Reason: Nausea / Vomiting Oxycodone HCl (Roxicodone) 10 mg PO Q4HR PRN PRN Reason: PAIN Last Admin: 06/08/19 22:39 Dose: 10 mg Patient Own Med (Ciclesonide [Alvesco) 2 each INH BID [facility] Last Admin: 06/09/19 09:18 Dose: 2 each Phenazopyridine HCl (Pyridium) 100 mg PO Q4H PRN PRN Reason: PAIN Polyethylene Glycol (Miralax) 17 gm PO DAILY [facility] Last Admin: 06/09/19 09:18 Dose: 17 gm Prazosin HCl (Minipress) 4 mg PO QPM [facility] Last Admin: 06/08/19 20:49 Dose: 4 mg Sodium Chloride (Normal Saline Flush 0.9%) 10 ml IVP PRN PRN PRN Reason: NEEDED PER PROVIDER ORDERS Sodium Chloride (Normal Saline Flush 0.9%) 10 ml IVP 0100,0900,1700 [facility] Last Admin: 06/09/19 09:17 Dose: Not Given Albuterol Sulfate [Proventil Hfa Inhaler] 1 puffs INH PRN PRN 01/26/16 Montelukast [Singulair] 10 mg PO DAILY 01/26/16 Ciclesonide [Alvesco] 2 puffs IH BID 04/19/17 Aspirin Chewable [St Julio Aspirin] 81 mg PO DAILY 06/07/19 Atorvastatin [Lipitor] 10 mg PO DAILY 06/07/19 Candesartan Cilexetil 8 mg PO BID 06/07/19 Cholecalciferol (Vitamin D3) [Vitamin D3] 1,000 unit PO DAILY 06/07/19 Dextroamphetamine/Amphetamine [Adderall Xr 5 mg Capsule] 5 mg PO Q48H 06/07/19 Dupilumab [Dupixent] 300 mg SQ Q14D 06/07/19 Folic Acid 1 mg PO DAILY 06/07/19 Furosemide 40 mg PO DAILY 06/07/19 Ipratropium/Albuterol [Combivent Respimat] 2 puffs IH Q6H PRN 06/07/19 Multivitamin [Multiple Vitamins] 1 each PO DAILY 06/07/19 Baker-3S/Dha/Epa/Fish Oil [Fish Oil 1,000 mg Softgel] 1 each PO DAILY 06/07/19 Potassium Chloride 10 meq PO DAILY 06/07/19 Prazosin [Minipress] 4 mg PO QPM 06/07/19 Salmeterol Xinafoate [Serevent Diskus] 1 puffs INH BID 06/07/19 Testosterone Cypionate 200 mg IM MOTH 06/07/19 Zolpidem Tartrate [Ambien] 10 mg PO QPM PRN 06/07/19 buPROPion HCl [Bupropion Xl] 450 mg PO DAILY 06/07/19 lamoTRIgine [Lamictal] 150 mg PO DAILY 06/07/19 oxyCODONE [Roxicodone] 5 mg PO PRN PRN 06/07/19 Objective - Vital Signs/Intake & Output Reviewed Vital Signs: Yes Vital Signs: Vital Signs x48h Temp Pulse Resp BP Pulse Ox 06/09/19 09:00 37.1 C 63 19 149/70 H 98 Intake & Output: Intake & Output 06/06/19 06/07/19 06/08/19 06/09/19 23:59 23:59 23:59 23:59 Intake Total 5690.00 4578.750 1300 Output Total 1000 1900 1950 Balance 4690.00 2678.750 -650 - Objective General Appearance: positive: No acute distress, Alert. negative: Lethargic Eyes Bilateral: positive: Normal inspection, PERRL, No lid inflammation, Co njunctivae nml ENT: positive: ENT inspection nml, Pharynx nml, No signs of dehydration. negative: Purulent nasal drainage, Pharyngeal erythema, Oral lesions Neck: positive: Nml inspection, Thyroid nml, No JVD, Trachea midline. negative: Thyromegaly, Lymphadenopathy (R), Lymphadenopathy (L), Stiff neck, Swelling/bruising, Tracheal deviation Respiratory: positive: Chest non-tender, No respiratory distress, Breath sounds nml. negative: Wheezes, Rales, Rhonchi Cardiovascular: positive: Regular rate & rhythm, No murmur, No gallop. negative: Irregularly irregular, Extrasystoles, Tachycardia, Bradycardia, JVD present, Systolic murmur, Diastolic murmur Peripheral Pulses: 2+ Radial (R), 2+ Radial (L), 2+ Dorsalis pedis (R), 2+ Dorsalis pedis (L) Abdomen: positive: Non-tender, No organomegaly, Nml bowel sounds, No distention. negative: Tenderness, Guarding, Rebound Back: positive: Nml inspection. negative: CVA tenderness (R), CVA tenderness (L) Skin: positive: Color nml, No rash, Warm, Dry. negative: Cyanosis, Diaphoresis, Pallor Extremities: positive: Non-tender, Full ROM, Nml appearance. negative: Calf tenderness, Joint swelling, Margarito's sign/cords Neurologic/Psychiatric: positive: Oriented x3, Motor nml, Sensation nml, Mood/affect nml. negative: Weakness, Sensory loss, Facial droop, Slurred/abnml speech, Depressed mood/affect - Lab Results Fish Bones: 06/09/19 04:45 06/09/19 04:45 Other Labs: Lab Results x24hrs 06/09/19 06/09/19 06/09/19 Range/Units 08:30 04:45 04:45 WBC 12.3 H (4.8-10.8) x10^3/uL RBC 4.00 L (4.70-6.10) 10^6/uL Hgb 11.7 L (14.0-18.0) g/dL Hct 35.8 L (42.0-52.0) % MCV 89.5 (80.0-94.0) fL MCH 29.3 (27.0-31.0) pg MCHC 32.7 (32.0-36.0) g/dL RDW 13.6 (12.0-15.0) % Plt Count 203 (130-450) 10^3/uL MPV 10.1 (7.4-11.4) fL Neut # (Auto) 8.1 H (1.5-6.6) 10^3/uL Lymph # (Auto) 2.1 (1.5-3.5) 10^3/uL Moffat # (Auto) 1.4 H (0.0-1.0) 10^3/uL Eos # (Auto) 0.6 (0.0-0.7) 10^3/uL Baso # (Auto) 0.1 (0.0-0.1) 10^3/uL Absolute Nucleated RBC 0.00 x10^3/uL Nucleated RBC % 0.0 /100WBC Sodium 141 (135-145) mmol/L Potassium 3.7 (3.5-5.0) mmol/L Chloride 111 (101-111) mmol/L Carbon Dioxide 24 (21-32) mmol/L Anion Gap 6.0 (6-13) BUN 12 (6-20) mg/dL Creatinine 0.8 (0.6-1.2) mg/dL Estimated GFR (MDRD) 97 (>89) Glucose 85 (70-100) mg/dL Calcium 8.0 L (8.5-10.3) mg/dL Phosphorus 2.5 (2.5-4.6) mg/dL Magnesium 2.1 (1.7-2.8) mg/dL Total Bilirubin 1.0 (0.2-1.0) mg/dL AST 17 (10-42) IU/L ALT 25 (10-60) IU/L Alkaline Phosphatase 52 (42-121) IU/L C-Reactive Protein 6.4 H (0-1.0) mg/dL Total Protein 5.8 L (6.7-8.2) g/dL Albumin 2.9 L (3.2-5.5) g/dL Globulin 2.9 (2.1-4.2) g/dL Albumin/Globulin Ratio 1.0 (1.0-2.2) Last Dose Date 06/08/19 Last Dose Time 23:00 Random Vancomycin 10.6 ug/mL ABX Reporting Has patient been on IV antibiotics over the past 48 hours?: Yes Sepsis Event Note (H) - Evaluation Current Stage of Sepsis: Sepsis Possible source of Sepsis: positive: Genitourinary - Sepsis Criteria Sepsis Criteria: Recorded Temperature greater than 38.3C or Less than 36C, Recorded Heart Rate greater than 90 bpm, WBC count greater than 12,000 or less than 4000 Assessment/Plan - Problem List (1) Sepsis Impression: 06/09 improved. pt had no fever for 24 hours. twice of blood culture indicated negative for bacteremia. WBC is down to 12.3 from 18.1 at admission. UTI is likely the recourse to cause sepsis continue treat with Meropenem and vancomycin (2) UTI (urinary tract infection) Impression: 06/09 UA culture reveals Ecoli bacterial was positive in UA, and sensitive to all antibiotics pt had two days lower degree of fever continue treat with Meropenem and vancomycin (3) BPH (benign prostatic hyperplasia) Impression: stable, continue home med, monitor for retention (4) Fever Impression: controlled, no more fever now continue antibiotics (5) LVH (left ventricular hypertrophy) Impression: stable (6) PTSD (post-traumatic stress disorder) Impression: stable (7) Reactive airway disease Impression: stable, pt is no respiratory distress at all continue home meds
--- NOTE | 2019-06-09 15:34 | Ultrasound Report ---
Reason: kidney stones, ureter obstruction, sepsis Procedure Date: 06/09/2019 Accession Number: [id number] / [id number] Procedure: US - Retroperitoneal CPT Code: FULL RESULT: EXAM: RENAL ULTRASOUND EXAM DATE: 06/09/2019 12:34 PM. CLINICAL HISTORY: Kidney stones. Ureter obstruction. Sepsis. COMPARISON: None. TECHNIQUE: Real-time scanning was performed with static images obtained. FINDINGS: Right Kidney: 13.1 x 7.0 x 5.5 cm. Normal echotexture with no stones, contour-deforming masses, or hydronephrosis. Inferior cluster of cysts 4.3 x 4.0 x 3.6 cm. Left Kidney: 12.8 x 6.5 x 5.2 cm. Normal echotexture with no stones, contour-deforming masses, or hydronephrosis. Multiple cysts, largest laterally 3.9 x 3.4 x 3.2 cm and inferiorly 2.7 x 2.6 x 2.6 cm. Bladder: Bilateral jets seen. The prevoid bladder volume was 259 cc. The postvoid bladder volume was 130 cc. Other: None. IMPRESSION: Bilateral cysts, otherwise unremarkable renal ultrasound. RADIA
[2019-06-09] MEDS: PHENAZOPYRIDINE 100 MG TABLET PO PRN ×2 (18:30→22:21)
[2019-06-09] MEDS: PRAZOSIN 1 MG CAPSULE PO SCH (20:42)
[2019-06-09] MEDS: ATORVASTATIN 10 MG TABLET PO SCH (20:43)
[2019-06-09] MEDS: oxyCODONE 5 MG TABLET PO PRN (22:21)
[2019-06-10] MEDS: SODIUM CHLORIDE FLUSH 0.9% 10 ML SYRINGE IVP SCH ×2 (00:16→10:04)
[2019-06-10] MEDS: oxyCODONE 5 MG TABLET PO PRN (02:38)
[2019-06-10] MEDS: MEROPENEM 1 GM in SODIUM CHLORIDE 0.9% MINIBAG 100 ML IV SCH ×2 (02:47→10:20)
[2019-06-10] MEDS: ACETAMINOPHEN 325 MG TABLET PO PRN (08:11)
[2019-06-10 09:55] LABS: BASOPHILS % (AUTO) 0.4 %; EOSINOPHILS # (AUTO) 0.5 10^3/uL (0.0-0.7); EOSINOPHILS % (AUTO) 4.6 %; HGB - HEMOGLOBIN 13.2 g/dL (14.0-18.0); LYMPHOCYTES # (AUTO) 1.5 10^3/uL (1.5-3.5); MEAN CORPUSCULAR HEMOGLOBIN 29.5 pg (27.0-31.0); MEAN CORPUSCULAR HGB CONC 33.5 g/dL (32.0-36.0); MEAN CORPUSCULAR VOLUME 87.9 fL (80.0-94.0); MEAN PLATELET VOLUME 9.6 fL (7.4-11.4); MONOCYTES # (AUTO) 1.2 10^3/uL (0.0-1.0); MONOCYTES % (AUTO) 12.7 %; NEUTROPHILS # (AUTO) 6.5 10^3/uL (1.5-6.6); NEUTROPHILS % (AUTO) 66.8 %; PLT - PLATELET COUNT 237 10^3/uL (130-450); RED BLOOD COUNT 4.48 10^6/uL (4.70-6.10); RED CELL DISTRIBUTION WIDTH 13.3 % (12.0-15.0); WHITE BLOOD COUNT 9.7 x10^3/uL (4.8-10.8)
[2019-06-10] MEDS: ASPIRIN CHEW 81 MG TABLET PO SCH (10:02)
[2019-06-10] MEDS: ENOXAPARIN 40 MG/0.4 ML SYRINGE SUBQ SCH (10:02)
[2019-06-10] MEDS: POLYETHYLENE GLYCOL 3350 17 GM PACKET PO SCH (10:02)
[2019-06-10] MEDS: MONTELUKAST 10 MG TABLET PO SCH (10:02)
[2019-06-10] MEDS: lamoTRIgine 100 MG TABLET PO SCH (10:02)
[2019-06-10] MEDS: buPROPion XL 150 MG TABLET PO SCH (10:03)
[2019-06-10] MEDS: CICLESONIDE INH SCH (10:03)
[2019-06-10 10:04] LABS: VANCOMYCIN,TROUGH 11.7 ug/mL (10.0-20.0)
[2019-06-10] MEDS: BUDESONIDE 0.5 MG/2 ML NEB INH SCH (10:05)
[2019-06-10] MEDS: PHENAZOPYRIDINE 100 MG TABLET PO PRN (10:13)
[2019-06-10 10:19] LABS: ALBUMIN 3.3 g/dL (3.2-5.5); ALBUMIN/GLOBULIN RATIO 0.9 (1.0-2.2); BILIRUBIN,TOTAL 0.8 mg/dL (0.2-1.0); CALCIUM 8.7 mg/dL (8.5-10.3); CREATININE 0.9 mg/dL (0.6-1.2); TOTAL PROTEIN 6.9 g/dL (6.7-8.2)
[2019-06-10] MEDS: VANCOMYCIN INJ 1.5 GM in SODIUM CHLORIDE 0.9% 500 ML IV SCH (11:11)
--- NOTE | 2019-06-10 12:43 | Discharge Plan ---
Discharge Plan Problem Reviewed?: Yes Disposition: Home, Self Care Condition: Poor Prescriptions: Cephalexin [Keflex] 500 mg PO BID #12 capsule Diet: Regular Activity Restrictions: Activity as Tolerated Shower Restrictions: No (fall precaution) Instruction Topics: UTI, Cephalexin tablets or capsules Health Concerns: UTI with lower degree fever Plan of Treatment: you had lower degree fever in the hospital. you blood cultures were negative for bacteremia. You was found to have positive urinary track infection. According to sensitivity study of UA culture, Keflex is prescribed for you to continue the treatment course. Care Goals: stabilization and improvement of your medical conditions Assessment: assessment as the above Additional Instructions or Follow Up instructions: you may followup your PCP in one week, followup ID as out-pt as needed. Should your symptoms return or worsen, you may present ER or call 911 for help. No Smoking: If you smoke, Please STOP! Call for help. Follow-up with: Chepe Marcos MD [Primary Care Provider] -
--- NOTE | 2019-06-10 13:04 | DISCHARGE SUMMARY ---
Discharge Summary Discharge Date: 06/10/19 Discharging Provider: MONTOYA Primary Care Provider: Chepe Aggarwal Condition at Discharge: Poor Discharge Disposition: 01 Home, Self Care Discharge Facility Name: home - DIAGNOSES Admission Diagnoses: (1) Sepsis (2) UTI (urinary tract infection) (3) PTSD (post-traumatic stress disorder) (4) Hypertension (5) BPH (benign prostatic hyperplasia) (6) Hypokalemia (7) Asthma Discharge Diagnoses with Status of Each Condition: (1) Sepsis resolved. pt was admitted with fever, tachycardia, elevated WBC. UA culture reveals positive for Ecoli, sensitive to all antibiotics. blood culture twice were negative for bacteremia. pt is d/c with antibiotics Keflex (2) UTI (urinary tract infection) continue treatment to finish the treatment course. UA culture reveals positive for Ecoli, sensitive to all antibiotics. pt is d/c with antibiotics Keflex (3) PTSD (post-traumatic stress disorder) stable (4) Hypertension stable (5) BPH (benign prostatic hyperplasia) stable (6) Hypokalemia resolved (7) Asthma stable - HPI History of Present Illness: refer from Dr. Crowe's HPI on 06/07/19 This is a 64 year old male with a past medical history significant for hypertension, BPH s/p TURP x5, PTSD, and asthma who presents from home complaining of fevers and chills. He states his symptoms began around 6pm last night and were acute in nature. He has associated dysuria and urgency. He also reports fatigue, malaise, nausea, and headache. He denies pelvic pain, back pain, and pain with defecation. He reports no hematuria. Denies prior history of UTI or kidney stones. He was hospitalized 4 weeks at [facility] for mediastinal mass and underwent thoracoscopy. This was complicated by a prolonged ICU stay. He states he spiked a fever just prior to discharge and he was sent home on Augmentin. He reports doing well since then. Denies abdominal, vomiting, chest pain, and dyspnea. In the ER, he was found to be febrile, tachycardic, and normotensive. Labs were significant for leukocytosis with a left shift, and hypokalemia. Urinalysis revealed pyuria, leukocyte esterase, and bacteruria. Influenza was negative. Chest x-ray was unremarkable. The patient initially wanted to be discharged home but he ultimately agreed to admission as he still feels quite fatigued. Of note, I did speak with the patient regarding code status and he would like to be a full code. - HOSPITAL COURSE Hospital Course: pt was admitted for fever, chill, dysuria. pt was found to have UTI. UA culture reveals pt had positive Ecoli, which was sensitive to all antibiotics. pt's blood culture reveals negative for bacteremia. I discussed with all test results with pt, and answered all pt's questions. pt denies any more cj pain or groin pain, abdominal pain. pt declined any further image study. pt strongly requested to be d/c to home today. After treatment, pt's WBC became normal arrange, no fever, no more cj pain or groin pain, and dysuria was controlled. the detail hospital course is as the follow. 1) Sepsis resolved. pt was admitted with fever, tachycardia, elevated WBC. UA culture r eveals positive for Ecoli, sensitive to all antibiotics. blood culture twice were negative for bacteremia. pt is d/c with antibiotics Keflex (2) UTI (urinary tract infection) continue treatment to finish the treatment course. UA culture reveals positive for Ecoli, sensitive to all antibiotics. pt is d/c with antibiotics Keflex (3) PTSD (post-traumatic stress disorder) stable (4) Hypertension stable (5) BPH (benign prostatic hyperplasia) stable (6) Hypokalemia resolved (7) Asthma stable - ALLERGIES Allergies/Adverse Reactions: Allergies Allergy/AdvReac Type Severity Reaction Status Date / Time No Known Drug Allergies Allergy Verified 01/26/16 17:06 - MEDICATIONS Home Medications: Ambulatory Orders Medication Instructions Recorded Confirmed Albuterol Sulfate [Proventil Hfa 1 puffs INH PRN PRN 01/26/16 06/07/19 Inhaler] Montelukast [Singulair] 10 mg PO DAILY 01/26/16 06/07/19 Ciclesonide [Alvesco] 2 puffs IH BID 04/19/17 06/07/19 Aspirin Chewable [St Julio 81 mg PO DAILY 06/07/19 06/07/19 Aspirin] Atorvastatin [Lipitor] 10 mg PO DAILY 06/07/19 06/07/19 Candesartan Cilexetil 8 mg PO BID 06/07/19 06/07/19 Cholecalciferol (Vitamin D3) 1,000 unit PO DAILY 06/07/19 06/07/19 [Vitamin D3] Dextroamphetamine/Amphetamine 5 mg PO Q48H 06/07/19 06/07/19 [Adderall Xr 5 mg Capsule] Dupilumab [Dupixent] 300 mg SQ Q14D 06/07/19 06/07/19 Folic Acid 1 mg PO DAILY 06/07/19 06/07/19 Furosemide 40 mg PO DAILY 06/07/19 06/07/19 Ipratropium/Albuterol [Combivent 2 puffs IH Q6H PRN 06/07/19 06/07/19 Respimat] Multivitamin [Multiple Vitamins] 1 each PO DAILY 06/07/19 06/07/19 [place]bago-3S/Dha/Epa/Fish Oil [Fish 1 each PO DAILY 06/07/19 06/07/19 Oil 1,000 mg Softgel] Potassium Chloride 10 meq PO DAILY 06/07/19 06/07/19 Prazosin [Minipress] 4 mg PO QPM 06/07/19 06/07/19 Salmeterol Xinafoate [Serevent 1 puffs INH BID 06/07/19 06/07/19 Diskus] Testosterone Cypionate 200 mg IM MOTH 06/07/19 06/07/19 Zolpidem Tartrate [Ambien] 10 mg PO QPM PRN 06/07/19 06/07/19 buPROPion HCl [Bupropion Xl] 450 mg PO DAILY 06/07/19 06/07/19 lamoTRIgine [Lamictal] 150 mg PO DAILY 06/07/19 06/07/19 oxyCODONE [Roxicodone] 5 mg PO PRN PRN 06/07/19 06/07/19 Cephalexin [Keflex] 500 mg PO BID #12 capsule 06/10/19 - PHYSICAL EXAM AT DISCHARGE General Appearance: positive: No acute distress, Alert. negative: Lethargic Eyes Bilateral: positive: Normal inspection, PERRL. negative: No lid inflammation, Conjunctivae nml ENT: positive: ENT inspection nml, Pharynx nml. negative: Purulent nasal drainage, Pharyngeal erythema, Oral lesions Neck: positive: Nml inspection, Thyroid nml, No JVD, Trachea midline. negative: Thyromegaly, Lymphadenopathy (R), Lymphadenopathy (L), Stiff neck, Swelling/bruising, Tracheal deviation Respiratory: positive: Chest non-tender, No respiratory distress, Breath sounds nml. negative: Wheezes, Rales, Rhonchi Cardiovascular: positive: Regular rate & rhythm, No murmur, No gallop. negative: Irregularly irregular, Extrasystoles, Tachycardia, Bradycardia, JVD present, Systolic murmur, Diastolic murmur Peripheral Pulses: positive: 2+ Abdomen: positive: Non-tender, No organomegaly, Nml bowel sounds, No distention. negative: Tenderness, Guarding, Rebound Back: positive: Nml inspection. negative: CVA tenderness (R), CVA tenderness (L) Skin: positive: Color nml, No rash, Warm, Dry. negative: Cyanosis, Diaphoresis, Pallor Extremities: positive: Non-tender, Full ROM, Nml appearance. negative: Calf tenderness, Joint swelling, Margarito's sign/cords Neurologic/Psychiatric: positive: Oriented x3, Motor nml, Sensation nml, Mood/affect nml. negative: Weakness, Sensory loss, Facial droop, Slurred/abnml speech, Depressed mood/affect - LABS Result Diagrams: 06/10/19 09:45 06/10/19 09:45 - SEPSIS Current Stage of Sepsis: Sepsis Possible source of Sepsis: Genitourinary Sepsis Criteria: Recorded Temperature greater than 38.3C or Less than 36C, Recorded Heart Rate greater than 90 bpm, WBC count greater than 12,000 or less than 4000 - FOLLOW UP Follow Up: you had lower degree fever in the hospital. you blood cultures were negative for bacteremia. You was found to have positive urinary track infection. According to sensitivity study of UA culture, Keflex is prescribed for you to continue the treatment course. you may followup your PCP in one week, followup ID as out-pt as needed. Should your symptoms return or worsen, you may present ER or call 911 for help. - TIME SPENT Time Spent in Discharge (Minutes): 55
[2019-06-10 13:11] VITALS: BP 152/82
[2019-06-10] MEDS ORDERED: VANCOMYCIN INJ 1.75 GM in SODIUM CHLORIDE 0.9% 500 ML IV SCH (21:00)
[2019-06-11 11:46] LABS: HIV AG/AB 4TH GEN NON-REACTIVE (NON-REACTIVE)
== END 2019-06-10 14:35 | disposition home or self-care (01) ==
LOC: ED 00:10 → UNDOADMOB 03:33 → MS3 03:33 → INTOOBSV 03:33 → MS3 03:34 → UNDOADMOB 03:34 → MS3 12:39 → UNDODISOB 06-10 14:35
PROVIDERS: ADMIT Internal Medicine; ATTEND Nurse Practitioner Gerontology
DX: A41.51 Sepsis due to Escherichia coli [E. coli] (principal); N30.00 Acute cystitis without hematuria; F43.10 Post-traumatic stress disorder, unspecified; I11.9 Hypertensive heart disease without heart failure; N40.0 Benign prostatic hyperplasia without lower urinary tract symptoms; E87.6 Hypokalemia; J45.909 Unspecified asthma, uncomplicated; Z90.79 Acquired absence of other genital organ(s); J98.6 Disorders of diaphragm; Z79.51 Long term (current) use of inhaled steroids; Z79.891 Long term (current) use of opiate analgesic; Z98.890 Other specified postprocedural states
CPT/HCPCS: 36415; 71046; 76770; 80048; 80053; 80202; 81001; 82550; 83605; 83690; 83735; 84100; 85025; 85651; 86140; 87040; 87086; 87181; 87275; 87276; 87389; 93005; 93306; 94640; 96361; 96365; 96366; 96367; 96368; 96372; 96375; 99285; A9270; G0378; J1650; J2185; J3370; J7626; 80306; 81003

== ENCOUNTER 2019-11-13 14:26 | Outpatient (CLI) | payer OTHER ==
[2019-11-13 14:47] LABS: BASOPHILS # (AUTO) 0.1 10^3/uL (0.0-0.1); BASOPHILS % (AUTO) 0.6 %; EOSINOPHILS # (AUTO) 0.4 10^3/uL (0.0-0.7); EOSINOPHILS % (AUTO) 3.4 %; HGB - HEMOGLOBIN 14.8 g/dL (14.0-18.0); LYMPHOCYTES # (AUTO) 2.1 10^3/uL (1.5-3.5); LYMPHOCYTES % (AUTO) 19.5 %; MEAN CORPUSCULAR HEMOGLOBIN 28.8 pg (27.0-31.0); MEAN CORPUSCULAR HGB CONC 32.4 g/dL (32.0-36.0); MEAN CORPUSCULAR VOLUME 89.1 fL (80.0-94.0); MEAN PLATELET VOLUME 9.5 fL (7.4-11.4); MONOCYTES # (AUTO) 1.1 10^3/uL (0.0-1.0); MONOCYTES % (AUTO) 9.8 %; NEUTROPHILS # (AUTO) 7.2 10^3/uL (1.5-6.6); NEUTROPHILS % (AUTO) 66.1 %; PLT - PLATELET COUNT 294 10^3/uL (130-450); RED BLOOD COUNT 5.13 10^6/uL (4.70-6.10); RED CELL DISTRIBUTION WIDTH 13.7 % (12.0-15.0); WHITE BLOOD COUNT 10.9 x10^3/uL (4.8-10.8)
[2019-11-13 15:48] LABS: PSA SCREEN (Z12.5) 0.57 ng/mL (0.000-2.000)
== END 2019-11-13 14:27 | disposition home or self-care (01) ==
LOC: LAB 14:26
PROVIDERS: ATTEND Nurse Practitioner Family
DX: R79.89 Other specified abnormal findings of blood chemistry (principal)
CPT/HCPCS: 36415; 84153; 84403; 85025

== ENCOUNTER 2020-05-08 12:55 | Outpatient (CLI) | payer OTHER | END 2020-05-08 12:56 | disposition home or self-care (01) | LOC: COV 12:55 | PROVIDERS: ATTEND Family Medicine | DX: R50.9 Fever, unspecified (principal); R05 Cough; M79.10 Myalgia, unspecified site; R53.83 Other fatigue; R19.7 Diarrhea, unspecified; R09.81 Nasal congestion; Z20.828 Contact with and (suspected) exposure to other viral communicable diseases ==

== ENCOUNTER 2020-11-30 09:04 | Outpatient (CLI) | payer MEDICARE, OTHER ==
[2020-11-30 15:03] LABS: BASOPHILS # (AUTO) 0.1 10^3/uL (0.0-0.1); BASOPHILS % (AUTO) 0.6 %; EOSINOPHILS # (AUTO) 0.5 10^3/uL (0.0-0.7); HCT - HEMATOCRIT 49.9 % (42.0-52.0); HGB - HEMOGLOBIN 16.1 g/dL (14.0-18.0); LYMPHOCYTES % (AUTO) 19.1 %; MEAN CORPUSCULAR HEMOGLOBIN 28.7 pg (27.0-31.0); MEAN CORPUSCULAR HGB CONC 32.3 g/dL (32.0-36.0); MEAN CORPUSCULAR VOLUME 88.9 fL (80.0-94.0); MONOCYTES # (AUTO) 1.1 10^3/uL (0.0-1.0); MONOCYTES % (AUTO) 10.2 %; NEUTROPHILS # (AUTO) 6.8 10^3/uL (1.5-6.6); NEUTROPHILS % (AUTO) 64.7 %; PLT - PLATELET COUNT 336 10^3/uL (130-450); RED BLOOD COUNT 5.61 10^6/uL (4.70-6.10); RED CELL DISTRIBUTION WIDTH 13.2 % (12.0-15.0); WHITE BLOOD COUNT 10.6 x10^3/uL (4.8-10.8)
[2020-11-30 16:05] LABS: ALBUMIN 3.8 g/dL (3.2-5.5); ALBUMIN/GLOBULIN RATIO 1.2 (1.0-2.2); ALKALINE PHOSPHATASE 76 IU/L (42-121); ALT ALANINE AMINOTRANSFERASE 20 IU/L (10-60); AST ASPARTATE AMINOTRANSFERASE 19 IU/L (10-42); BILIRUBIN,TOTAL 0.8 mg/dL (0.2-1.0); BUN - BLOOD UREA NITROGEN 22 mg/dL (6-20); CARBON DIOXIDE - CO2 30 mmol/L (21-32); CHLORIDE 102 mmol/L (101-111); CHOL/HDL RATIO 4.8 (<5.0); CHOLESTEROL 154 mg/dL; GFR - MDRD 75 (>89); GLUCOSE 95 mg/dL (70-100); HDL CHOLESTEROL 32 mg/dL; LDL CHOLESTEROL,CALCULATED 107 mg/dL; LDL/HDL RATIO 3.3 (<3.6); POTASSIUM 3.8 mmol/L (3.5-5.0); SODIUM 139 mmol/L (135-145); TOTAL PROTEIN 7.1 g/dL (6.7-8.2); TRIGLYCERIDES 76 mg/dL; VLDL CHOLESTEROL 15 mg/dL
== END 2020-11-30 09:05 | disposition home or self-care (01) ==
LOC: LAB.S 09:04
PROVIDERS: ATTEND Nurse Practitioner Family
DX: E29.1 Testicular hypofunction (principal); N40.0 Benign prostatic hyperplasia without lower urinary tract symptoms; Z12.5 Encounter for screening for malignant neoplasm of prostate; E78.5 Hyperlipidemia, unspecified; R22.2 Localized swelling, mass and lump, trunk; F98.9 Unspecified behavioral and emotional disorders with onset usually occurring in childhood and adolescence; I10 Essential (primary) hypertension
CPT/HCPCS: 36415; 80053; 80061; 84403; 85025; G0103; 83721; 84153

== ENCOUNTER 2020-12-03 06:57 | Outpatient (CLI) | payer MEDICARE, OTHER ==
--- NOTE | 2020-12-03 09:10 | Ultrasound Report ---
PROCEDURE: Abdomen Limited INDICATIONS: ABDOMINAL WALL MASS TECHNIQUE: Real-time focused scanning was performed of the abdomen, with image documentation. COMPARISON: None FINDINGS: Limited sonographic images of the abdominal wall superior to the umbilicus and to the left of midline demonstrates a fat-containing hernia. Rectus diastases measures approximately 1.7 cm. In addition, immediately superior to the umbilicus, a second fat-containing hernia is present. Rectus di astases measures approximately 1.6 cm. IMPRESSION: Ventral wall fat-containing hernias as above. Reviewed by: Zamzam Casey MD on 12/03/2020 9:09 AM PDT Approved by: Zamzam Casey MD on 12/03/2020 9:09 AM PDT Station ID: [id number]
== END 2020-12-03 06:58 | disposition home or self-care (01) ==
LOC: DI 06:57
PROVIDERS: ATTEND Nurse Practitioner Family
DX: K43.9 Ventral hernia without obstruction or gangrene (principal)

== ENCOUNTER 2021-08-12 14:07 | Emergency (ER) | payer MEDICARE, OTHER ==
[2021-08-12] MEDS ORDERED: NICARDIPINE HCL 25 MG in SODIUM CHLORIDE 0.9% 240 ML IV STA (14:46)
--- NOTE | 2021-08-12 14:52 | ED Physician Documentation ---
PD HPI HEADACHE - Stated complaint Stated Complaint: CONFUSION/HEAD PX/HIGH BP - Chief complaint Chief Complaint: Neuro - History obtained from History obtained from: Patient - Additional information Additional information: 66-year-old gentleman with poorly controlled hypertension presents with about 5 to 6 days of confusion, severe headache, and light sensitivity and nausea. He does not have a primary headache syndrome. He states that he has been compliant with his medications which include clonidine 0.2 mg in the morning and 0.3 mg at night, Lasix 80 mg a day, hydralazine 50 mg 3 times a day, amlodipine 2.5 mg a day and bystolic 30 mg once a day. Despite being compliant with these, his blood pressure has been in the range of 230/130 at home. States that he has not been able to figure out things that he routinely did does at home although is technically alert and oriented. Review of Systems Ten Systems: 10 systems reviewed and negative Constitutional: denies: Fever, Chills Nose: reports: Reviewed and negative Throat: reports: Reviewed and negative Cardiac: reports: Reviewed and negative PD PAST MEDICAL HISTORY - Past Medical History Cardiovascular: Hypertension, Other Respiratory: Asthma, Other (Paralyzed right hemidiaphragm) Endocrine/Autoimmune: None : Benign prostate hypertrophy Psych: Post traumatic stress disorder - Past Surgical History General: Other (4 weeks S/P bilateral inguinal hernia repairs) Ortho: Other (Left bicep tendon repair) Derm: Other - Present Medications Home Medications: Ambulatory Orders Medication Instructions Recorded Confirmed Albuterol Sulfate [Proventil Hfa 1 puffs INH PRN PRN 01/26/16 08/12/21 Inhaler] Montelukast [Singulair] 10 mg PO DAILY 01/26/16 08/12/21 Ciclesonide [Alvesco] 2 puffs IH BID 04/19/17 08/12/21 Aspirin Chewable [St Julio 81 mg PO DAILY 06/07/19 08/12/21 Aspirin] Atorvastatin [Lipitor] 10 mg PO DAILY 06/07/19 08/12/21 Cholecalciferol (Vitamin D3) 1,000 unit PO DAILY 06/07/19 08/12/21 [Vitamin D3] Dextroamphetamine/Amphetamine 5 mg PO Q48H 06/07/19 08/12/21 [Adderall Xr 5 mg Capsule] Dupilumab [Dupixent Syringe] 300 mg SQ Q14D 06/07/19 08/12/21 Folic Acid 1 mg PO DAILY 06/07/19 08/12/21 Furosemide 80 mg PO DAILY 06/07/19 08/12/21 Ipratropium/Albuterol [Combivent 2 puffs IH Q6H PRN 06/07/19 08/12/21 Respimat] Multivitamin [Multiple Vitamins] 1 each PO DAILY 06/07/19 08/12/21 [place]-3S/Dha/Epa/Fish Oil [Fish 1 each PO DAILY 06/07/19 08/12/21 Oil 1,000 mg Softgel] Potassium Chloride 10 meq PO DAILY 06/07/19 08/12/21 Salmeterol Xinafoate [Serevent 1 puffs INH BID 06/07/19 08/12/21 Diskus] Testosterone Cypionate 200 mg IM MOTH 06/07/19 08/12/21 Zolpidem Tartrate [Ambien] 10 mg PO QPM PRN 06/07/19 08/12/21 lamoTRIgine [Lamictal] 150 mg PO DAILY 06/07/19 08/12/21 Amlodipine Besylate [Norvasc] 2.5 mg PO DAILY 08/12/21 08/12/21 Doxycycline Hyclate 100 mg PO DAILY 08/12/21 08/12/21 Nebivolol HCl 30 mg PO DAILY 08/12/21 08/12/21 cloNIDine [Catapres] 0.2 mg PO BID 08/12/21 08/12/21 hydrALAZINE [Apresoline] 50 mg PO TID 08/12/21 08/12/21 - Allergies Allergies/Adverse Reactions: Allergies Allergy/AdvReac Type Severity Reaction Status Date / Time No Known Drug Allergies Allergy Verified 08/12/21 14:14 - Social History Does the pt smoke?: No Smoking Status: Former smoker Does the pt drink ETOH?: Yes Does the pt have substance abuse?: No - Immunizations Immunizations are current?: Yes PD ED PE NORMAL - Vitals Vital signs reviewed: Yes - General General: Other (Is uncomfortable and light sensitive. He is technically alert oriented but seems confused about his medication regimen and other things that he states he would normally be able to have at the tip of his tongue.) - HEENT HEENT: PERRL, EOMI - Neck Neck: Supple, no meningeal sign, No bony TTP - Cardiac Cardiac: RRR, No murmur - Respiratory Respiratory: No respiratory distress, Clear bilaterally - Abdomen Abdomen: Soft, Non tender - Back Back: No CVA TTP, No spinal TTP - Derm Derm: Normal color, Warm and dry - Extremities Extremities: Other (1+ pitting pedal edema a little worse on the left than the right but noting he had a recent ankle surgery on that side.) - Neuro Neuro: Alert and oriented X 3, No motor deficit, No sensory deficit, Normal speech Eye Opening: Spontaneous Motor: Obeys Commands Verbal: Confused GCS Score: 14 Results - Vitals Vitals: Vital Signs - 24 hr 08/12/21 08/12/21 08/12/21 14:14 14:40 15:09 Temperature 36.5 C Heart Rate 53 L 51 L 53 L Respiratory 16 18 18 Rate Blood Pressure 195/93 H 221/99 H 172/95 H O2 Saturation 96 97 96 08/12/21 08/12/21 08/12/21 15:30 15:48 16:08 Temperature Heart Rate 49 L 60 62 Respiratory 14 14 15 Rate Blood Pressure 168/93 H 155/77 H 165/87 H O2 Saturation 96 95 95 08/12/21 08/12/21 08/12/21 16:57 17:03 17:23 Temperature Heart Rate 61 61 71 Respiratory 18 22 14 Rate Blood Pressure 177/88 H 162/89 H 171/88 H O2 Saturation 95 96 96 08/12/21 08/12/21 08/12/21 18:30 18:54 19:10 Temperature Heart Rate 70 74 72 Respiratory 15 14 15 Rate Blood Pressure 171/76 H 158/79 H 160/93 H O2 Saturation 94 94 94 08/12/21 08/12/21 19:26 19:33 Temperature 36.5 C Heart Rate 72 73 Respiratory 15 21 Rate Blood Pressure 165/88 H 187/101 H O2 Saturation 94 94 Oxygen O2 Source Room air - EKG (time done) 1506 Rate: Rate (enter#) (47) Rhythm: Sinus bradycardia [place]: Normal Intervals: RBBB, Other (LAFB) Ischemia: Normal ST segments - Labs Labs: Laboratory Tests 08/12/21 08/12/21 08/12/21 14:45 14:45 17:00 WBC 12.4 H RBC 5.70 Hgb 16.6 Hct 49.7 MCV 87.2 MCH 29.1 MCHC 33.4 RDW 13.9 Plt Count 314 MPV 9.9 Neut # (Auto) 7.5 H Lymph # (Auto) 2.9 [place] # (Auto) 1.5 H Eos # (Auto) 0.3 Baso # (Auto) 0.1 Absolute Nucleated RBC 0.00 Nucleated RBC % 0.0 Manual Slide Review Indicated Platelet Estimate NORMAL (130-450,000) Platelet Morphology NORMAL APPEARANCE RBC Morph Micro Appear NORMAL APPEARANCE Sodium 138 Potassium 3.5 Chloride 101 Carbon Dioxide 26 Anion Gap 11.0 BUN 24 H Creatinine 1.0 Estimated GFR (MDRD) 75 L Glucose 99 Calcium 8.9 Magnesium 2.1 Nasal Adenovirus (PCR) NOT DETECTED Nasal B. parapertussis DNA (PCR) NOT DETECTED Nasal Coronavir 229E PCR NOT DETECTED Nasal Coronavir HKU1 PCR NOT DETECTED Nasal Coronavir NL63 PCR NOT DETECTED Nasal Coronavir OC43 PCR NOT DETECTED Nasal Enterovir/Rhinovir PCR NOT DETECTED Nasal Influenza B PCR NOT DETECTED Nasal Influenza A PCR NOT DETECTED Nasal Parainfluen 1 PCR NOT DETECTED Nasal Parainfluen 2 PCR NOT DETECTED Nasal Parainfluen 3 PCR NOT DETECTED Nasal Parainfluen 4 PCR NOT DETECTED Nasal RSV (PCR) NOT DETECTED Nasal B.pertussis DNA PCR NOT DETECTED Nasal C.pneumoniae (PCR) NOT DETECTED [place] Human Metapneumo PCR NOT DETECTED Nasal M.pneumoniae (PCR) NOT DETECTED Nasal SARS-CoV-2 (PCR) NOT DETECTED PD MEDICAL DECISION MAKING - ED course ED course: 66-year-old gentleman presents with hypertensive encephalopathy versus PRES. No physical findings of stroke but he is confused on exam. MRI demonstrates no acute changes, does have chronic microvascular ischemic changes, but no findings of PRES. He was on a Cardene drip which was helpful for his headache although not resolved, and also helped his blood pressure and resolved his encephalopathy. He was presented for admission here, we have no ICU or frankly other beds. His primary care physician is associated with [facility] and we called them for potential transfer. Spoke with Dr. Bolivar Mcpherson, paint roller covers supervisor associated with [facility]. He is happy to consult but will not be primary as the patient would have to go to the ICU on a Cardene drip. Subsequently spoke with Dr. Tereso Junior, package liner at [facility] who accept the patient in transfer. - Critical Care Time(min): 45 Time Includes: Direct patient care, Review records, Reassess patient, Document care, Coordinate care, Medical consult (Consults including his PCP, cardiology and package liner), Family consult for tx dec (Spoke with his by phone) Data interpretation: Labs, Pulse ox Procedures included in critical care time: Peripheral IV Procedures excluded from critical care time: EKG Departure - Departure Disposition: 02 Transfer Acute Care Hosp Clinical Impression: Hypertensive encephalopathy Condition: Critical
[2021-08-12 14:54] LABS: BASOPHILS # (AUTO) 0.1 10^3/uL (0.0-0.1); BASOPHILS % (AUTO) 0.6 %; EOSINOPHILS # (AUTO) 0.3 10^3/uL (0.0-0.7); EOSINOPHILS % (AUTO) 2.5 %; HCT - HEMATOCRIT 49.7 % (42.0-52.0); HGB - HEMOGLOBIN 16.6 g/dL (14.0-18.0); LYMPHOCYTES # (AUTO) 2.9 10^3/uL (1.5-3.5); LYMPHOCYTES % (AUTO) 23.3 %; MEAN CORPUSCULAR HEMOGLOBIN 29.1 pg (27.0-31.0); MEAN CORPUSCULAR HGB CONC 33.4 g/dL (32.0-36.0); MEAN CORPUSCULAR VOLUME 87.2 fL (80.0-94.0); MEAN PLATELET VOLUME 9.9 fL (7.4-11.4); MONOCYTES # (AUTO) 1.5 10^3/uL (0.0-1.0); MONOCYTES % (AUTO) 12.5 %; NEUTROPHILS # (AUTO) 7.5 10^3/uL (1.5-6.6); NEUTROPHILS % (AUTO) 60.8 %; PLT - PLATELET COUNT 314 10^3/uL (130-450); RED CELL DISTRIBUTION WIDTH 13.9 % (12.0-15.0); WHITE BLOOD COUNT 12.4 x10^3/uL (4.8-10.8)
[2021-08-12 14:55] LABS: SLIDE REVIEW? Indicated
[2021-08-12 14:58] LABS: CALCIUM 8.9 mg/dL (8.5-10.3); MAGNESIUM 2.1 mg/dL (1.7-2.8); POTASSIUM 3.5 mmol/L (3.5-5.0)
[2021-08-12 15:39] LABS: PLATELET ESTIMATE, MANUAL NORMAL (130-450,000) (NORMAL); PLATELET MORPHOLOGY NORMAL APPEARANCE (NORMAL); RBC MORPHOLOGY (MULTIPLE) NORMAL APPEARANCE (NORMAL)
--- NOTE | 2021-08-12 17:07 | MRI Report ---
PROCEDURE: Brain W/O INDICATIONS: Headache, confusion, suspect pres TECHNIQUE: Noncontrast axial T1 spin echo, axial T2 fast spin echo, sagittal and axial FLAIR, coronal T2 fast sp in echo, axial gradient echo, axial diffusion and ADC through the brain. COMPARISON: None. FINDINGS: Image quality: Excellent. CSF Spaces: Normal ventricular caliber and position. Patent basilar cisterns. No abnormal extra-axial fluid collection. Brain: Mild global cerebral volume loss and chronic microvascular ischemic no restricted diffusion or recent ischemia. The major intracranial vascular flow-related signal voids are maintained. Midline s tructures are normal in configuration. There is no abnormal intracranial susceptibility. No findings of mass effect or midline shift. Skull and face: Calvarium has normal marrow signal. Orbits appear normal. Sinuses: Sinuses and mastoids are clear. IMPRESSION: Age-related global cerebral volume loss and chronic microvascular ischemic changes. No findings of PRES or other acute finding. Reviewed by: London Henry MD on 08/12/2021 4:05 PM [facility] Approved by: London Henry MD on 08/12/2021 4:05 PM [facility] Station ID: [id number]
[2021-08-12 18:00] LABS: B. PARAPERTUSSIS- RESP PCR PAN NOT DETECTED; B. PERTUSSIS- RESP PCR PANEL NOT DETECTED; C. PNEUMONIAE- RESP PCR PANEL NOT DETECTED; CORONAVIRUS 229E-RESP PCR NOT DETECTED; CORONAVIRUS HKU1-RESP PCR NOT DETECTED; CORONAVIRUS NL63-RESP PCR NOT DETECTED; CORONAVIRUS OC43-RESP PCR NOT DETECTED; HUMAN METAPNEUMOVIRUS NOT DETECTED; INFLUENZA A- RESP PCR PANEL NOT DETECTED; INFLUENZA B - RESP PCR PANEL NOT DETECTED; M. PNEUMONIAE- RESP PCR PANEL NOT DETECTED; PARAINFLUENZA VIRUS 1 NOT DETECTED; PARAINFLUENZA VIRUS 2 NOT DETECTED; PARAINFLUENZA VIRUS 3 NOT DETECTED; PARAINFLUENZA VIRUS 4 NOT DETECTED; RHINOVIRUS/ENTEROVIRUS NOT DETECTED; RSV- RESP PCR PANEL NOT DETECTED; SARS-CoV-2 -RESP PCR PANEL NOT DETECTED
[2021-08-12] MEDS ORDERED: amLODIPine 5 MG TABLET PO STA ×2 (18:07→19:15)
[2021-08-12] MEDS ORDERED: HYDROmorphone 1 MG/ML CARPUJECT IVP STA ×2 (18:44→19:49)
[2021-08-12] MEDS ORDERED: ONDANSETRON 4 MG/2 ML VIAL IVP STA (20:16)
[2021-08-12] MEDS ORDERED: SODIUM CHLORIDE 0.9% 1,000 ML IV STA (20:24)
[2021-08-12] MEDS ORDERED: NICARDIPINE HCL 25 MG/10 ML VIAL IV ONE (20:26)
[2021-08-12] MEDS ORDERED: METOCLOPRAMIDE 10 MG/2 ML VIAL IVP STA (20:38)
[2021-08-12] MEDS ORDERED: cloNIDine 0.1 MG TABLET PO SCH (21:00)
[2021-08-12] MEDS ORDERED: hydrALAZINE 25 MG TABLET PO SCH (21:00)
[2021-08-12 21:03] VITALS: BP 139/76
[2021-08-13] MEDS ORDERED: cloNIDine 0.1 MG TABLET PO SCH (09:00)
[2021-08-13] MEDS ORDERED: amLODIPine 5 MG TABLET PO SCH (09:00)
== END 2021-08-12 21:32 | disposition short-term general hospital (02) ==
LOC: ED 14:07
DX: I67.4 Hypertensive encephalopathy (principal); R51.9 Headache, unspecified; I45.2 Bifascicular block; R00.1 Bradycardia, unspecified; Z20.822 Contact with and (suspected) exposure to COVID-19; Z87.891 Personal history of nicotine dependence
CPT/HCPCS: 36415; 70551; 80048; 83735; 85025; 87631; 93005; 96365; 96366; 96375; 96376; 99291; A9270; J1170; J2765; 0202U

== ENCOUNTER 2021-08-12 21:35 | Outpatient (CLI) | payer MEDICARE, OTHER | END 2021-08-12 21:36 | disposition short-term general hospital (02) | LOC: EMS 21:35 | PROVIDERS: ATTEND Emergency Medicine | DX: I67.4 Hypertensive encephalopathy (principal) | CPT/HCPCS: A0425; A0428 ==

== ENCOUNTER 2021-09-07 19:35 | Outpatient (CLI) | payer MEDICARE, OTHER | END 2021-09-07 19:36 | disposition left against medical advice (07) | LOC: EMS 19:35 | DX: R42 Dizziness and giddiness (principal); I95.9 Hypotension, unspecified ==

== ENCOUNTER 2021-12-26 18:35 | Emergency (ER) | payer MEDICARE, OTHER ==
--- NOTE | 2021-12-26 18:56 | ED Physician Documentation ---
PD HPI LOWER EXT INJURY - Stated complaint Stated Complaint: LT ANKLE INJ - Chief complaint Chief Complaint: Trauma Ext - History obtained from History obtained from: Patient - Additional information Additional information: He has a history of a Kevlar tendon replacement in the left ankle. Today he had an injury of the ankle and feels like that Kevlar piece popped and is unable to walk without extreme pain. Declines pain medication on initial evaluation. No other injuries. PD PAST MEDICAL HISTORY - Past Medical History Cardiovascular: Hypertension, Other Respiratory: Asthma, Other (Paralyzed right hemidiaphragm) Endocrine/Autoimmune: None GI: None : Benign prostate hypertrophy Psych: Post traumatic stress disorder Musculoskeletal: None Derm: Rosacea - Past Surgical History Past Surgical History: Yes General: Other (4 weeks S/P bilateral inguinal hernia repairs) Ortho: Other (Left bicep tendon repair) Cardiovascular: Other Derm: Other - Present Medications Home Medications: Ambulatory Orders Medication Instructions Recorded Confirmed Albuterol Sulfate [Proventil Hfa 1 puffs INH PRN PRN 01/26/16 12/26/21 Inhaler] Montelukast [Singulair] 10 mg PO DAILY 01/26/16 12/26/21 Ciclesonide [Alvesco] 2 puffs IH BID 04/19/17 12/26/21 Aspirin Chewable [St Julio 81 mg PO DAILY 06/07/19 12/26/21 Aspirin] Atorvastatin [Lipitor] 10 mg PO DAILY 06/07/19 12/26/21 Cholecalciferol (Vitamin D3) 1,000 unit PO DAILY 06/07/19 12/26/21 [Vitamin D3] Dextroamphetamine/Amphetamine 5 mg PO Q48H 06/07/19 12/26/21 [Adderall Xr 5 mg Capsule] Dupilumab [Dupixent Syringe] 300 mg SQ Q14D 06/07/19 12/26/21 Folic Acid 1 mg PO DAILY 06/07/19 12/26/21 Furosemide 80 mg PO DAILY 06/07/19 12/26/21 Ipratropium/Albuterol [Combivent 2 puffs IH Q6H PRN 06/07/19 12/26/21 Respimat] Multivitamin [Multiple Vitamins] 1 each PO DAILY 06/07/19 12/26/21 [place]-3S/Dha/Epa/Fish Oil [Fish 1 each PO DAILY 06/07/19 12/26/21 Oil 1,000 mg Softgel] Potassium Chloride 10 meq PO DAILY 06/07/19 12/26/21 Salmeterol Xinafoate [Serevent 1 puffs INH BID 06/07/19 12/26/21 Diskus] Testosterone Cypionate 200 mg IM MOTH 06/07/19 12/26/21 Zolpidem Tartrate [Ambien] 10 mg PO QPM PRN 06/07/19 12/26/21 lamoTRIgine [Lamictal] 150 mg PO DAILY 06/07/19 12/26/21 Amlodipine Besylate [Norvasc] 2.5 mg PO DAILY 08/12/21 12/26/21 Doxycycline Hyclate 100 mg PO DAILY 08/12/21 12/26/21 Nebivolol HCl 30 mg PO DAILY 08/12/21 12/26/21 cloNIDine [Catapres] 0.2 mg PO BID 08/12/21 12/26/21 hydrALAZINE [Apresoline] 50 mg PO TID 08/12/21 12/26/21 - Allergies Allergies/Adverse Reactions: Allergies Allergy/AdvReac Type Severity Reaction Status Date / Time No Known Drug Allergies Allergy Verified 12/26/21 18:48 - Social History Does the pt smoke?: No Smoking Status: Former smoker Does the pt drink ETOH?: Yes Does the pt have substance abuse?: No - Immunizations Immunizations are current?: Yes PD ED PE NORMAL - Vitals Vital signs reviewed: Yes - General General: Alert and oriented X 3, No acute distress - Extremities Extremities: Other (Tender over the ATFL laterally which is the tendon he had replaced on the left ankle. No other foot or ankle tenderness.) - Neuro Neuro: Alert and oriented X 3, Normal speech Results - Vitals Vitals: Vital Signs - 24 hr 12/26/21 12/26/21 18:47 19:45 Temperature 36.7 C Heart Rate 104 H 83 Respiratory 16 116 H Rate Blood Pressure 124/69 131/86 H O2 Saturation 95 96 Oxygen O2 Source Room air - Rads (name of study) Three-view x-ray left ankle is Unremarkable Radiology: EMP read contemporaneously PD MEDICAL DECISION MAKING - ED course ED course: 66-year-old gentleman with a Kevlar replacement of the I think the ATFL may have ruptured it today. Bony x-rays look okay. He declined a boot or knee scooter. Departure - Departure Disposition: 01 Home, Self Care Clinical Impression: Ankle injury Qualifiers: Encounter type: initial encounter Laterality: left Qualified Code(s): S99.912A - Unspecified injury of left ankle, initial encounter Condition: Good Record reviewed to determine appropriate education?: Yes Instructions: ED Sprain Ankle W X Ray Comments: Follow-up with your foot and ankle surgeon, next available appointment. I recommend not walking or bearing weight on it until then. Return for new or worsening symptoms.
--- NOTE | 2021-12-26 19:40 | XRAY Report ---
PROCEDURE: Ankle 3 View LT INDICATIONS: Trauma TECHNIQUE: 3 views of the ankle were acquired. COMPARISON: None. FINDINGS: Bones: No fractures or dislocations. Ankle mortise is normally aligned. No suspicious bony lesions . Calcaneal spurring. Soft tissues: No tibiotalar joint effusion. Achilles tendon appears normal. IMPRESSION: No acute osseous abnormalities. If clinical symptoms persist, a repeat examination in 7- 10 days or advanced imaging such as CT or MRI can be obtained. Reviewed by: Monster Salcedo MD on 12/26/2021 7:39 PM PDT Approved by: Monster Salcedo MD on 12/26/2021 7:39 PM PDT Station ID: [id number]
[2021-12-26 19:47] VITALS: BP 131/86
== END 2021-12-26 20:07 | disposition home or self-care (01) ==
LOC: ED 18:35
DX: S99.912A Unspecified injury of left ankle, initial encounter (principal); X58.XXXA Exposure to other specified factors, initial encounter; Z87.891 Personal history of nicotine dependence; I10 Essential (primary) hypertension
CPT/HCPCS: 99281; 99283

== ENCOUNTER 2022-09-15 16:03 | Outpatient (CLI) | payer MEDICARE, OTHER | END 2022-09-15 16:04 | disposition short-term general hospital (02) | LOC: EMS 16:03 | DX: K92.1 Melena (principal); I95.9 Hypotension, unspecified; R53.83 Other fatigue | CPT/HCPCS: A0425; A0429; A0888 ==

== ENCOUNTER 2022-09-21 12:12 | Outpatient (CLI) | payer MEDICARE, OTHER | END 2022-09-21 12:13 | disposition short-term general hospital (02) | LOC: EMS 12:12 | DX: R55 Syncope and collapse (principal); R53.1 Weakness; R19.5 Other fecal abnormalities | CPT/HCPCS: A0425; A0427 ==

== ENCOUNTER 2022-09-26 12:40 | Outpatient (CLI) | payer MEDICARE, OTHER ==
[2022-09-26 12:54] LABS: BASOPHILS # (AUTO) 0.1 10^3/uL (0.0-0.1); BASOPHILS % (AUTO) 0.5 %; EOSINOPHILS # (AUTO) 0.4 10^3/uL (0.0-0.7); EOSINOPHILS % (AUTO) 3.5 %; HCT - HEMATOCRIT 31.1 % (42.0-52.0); HGB - HEMOGLOBIN 9.9 g/dL (14.0-18.0); LYMPHOCYTES # (AUTO) 1.8 10^3/uL (1.5-3.5); LYMPHOCYTES % (AUTO) 17.6 %; MEAN CORPUSCULAR HEMOGLOBIN 29.2 pg (27.0-31.0); MEAN CORPUSCULAR HGB CONC 31.8 g/dL (32.0-36.0); MEAN CORPUSCULAR VOLUME 91.7 fL (80.0-94.0); MEAN PLATELET VOLUME 9.3 fL (7.4-11.4); MONOCYTES # (AUTO) 1.4 10^3/uL (0.0-1.0); MONOCYTES % (AUTO) 13.2 %; NEUTROPHILS # (AUTO) 6.7 10^3/uL (1.5-6.6); NEUTROPHILS % (AUTO) 64.7 %; PLT - PLATELET COUNT 333 10^3/uL (130-450); RED BLOOD COUNT 3.39 10^6/uL (4.70-6.10); RED CELL DISTRIBUTION WIDTH 15.2 % (12.0-15.0); WHITE BLOOD COUNT 10.3 x10^3/uL (4.8-10.8)
[2022-09-26 13:18] LABS: ALBUMIN 3.4 g/dL (3.2-5.5); ALBUMIN/GLOBULIN RATIO 1.1 (1.0-2.2); BILIRUBIN,TOTAL 0.6 mg/dL (0.2-1.0); CALCIUM 8.7 mg/dL (8.5-10.3); CREATININE 1.6 mg/dL (0.6-1.2); TOTAL PROTEIN 6.6 g/dL (6.7-8.2)
== END 2022-09-26 12:41 | disposition home or self-care (01) ==
LOC: LAB 12:40
PROVIDERS: ATTEND Family Medicine
DX: D50.0 Iron deficiency anemia secondary to blood loss (chronic) (principal)
CPT/HCPCS: 36415; 80053; 83540; 84466; 85025

== ENCOUNTER 2023-01-02 15:26 | Outpatient (CLI) | payer MEDICARE, OTHER ==
--- NOTE | 2023-01-02 15:55 | XRAY Report ---
PROCEDURE: Chest 2 View X-Ray INDICATIONS: SOB. Cough, fever. Shortness of breath. TECHNIQUE: 2 views of the chest were acquired. COMPARISON: None. FINDINGS: Surgical changes and devices: None. Lungs and pleura: No pleural effusions or pneumothorax. Hazy left basilar airspace opacity. Elevatio n right hemidiaphragm. Mediastinum: Mediastinal contours appear normal. Heart size is normal. Bones and chest wall: No suspicious bony lesions. Overlying soft tissues appear unremarkable. 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 IMPRESSION: Hazy left basilar airspace opacity, either atelectasis or infection. Reviewed by: Dominick Gupta on 01/02/2023 3:53 PM PDT Approved by: Dominick Gupta on 01/02/2023 3:53 PM PDT Station ID: [id number]
== END 2023-01-02 15:27 | disposition home or self-care (01) ==
LOC: DI 15:26
PROVIDERS: ATTEND Nurse Practitioner
DX: R91.8 Other nonspecific abnormal finding of lung field (principal)

== ENCOUNTER 2023-01-06 15:32 | Emergency (ER) | payer MEDICARE, OTHER ==
[2023-01-06] MEDS ORDERED: cefTRIAXone 1 GM in SODIUM CHLORIDE 0.9% MINIBAG 100 ML IV STA (15:51)
--- NOTE | 2023-01-06 15:52 | ED Physician Documentation ---
PD HPI DYSPNEA - Stated complaint Stated Complaint: TROUBLE BREATHING - Chief complaint Chief Complaint: Resp - History obtained from History obtained from: Patient - Additional information Additional information: 67-year-old gentleman with chronic severe asthma, history of renal cell carcinoma in remission, not needing chemotherapy, has been sick for 2 weeks with cough productive of clear sputum, shortness of breath. He was seen by his home connect lpn. He is finishing up a Z-Abel for pneumonia seen on x-ray done 5 days ago. He was discharged on cefuroxime and has had only a couple of doses. He is also just started steroids for his asthma. PD PAST MEDICAL HISTORY - Past Medical History Cardiovascular: Hypertension, Other Respiratory: Asthma, Other (Paralyzed right hemidiaphragm) Endocrine/Autoimmune: None GI: None : Benign prostate hypertrophy Psych: Post traumatic stress disorder Musculoskeletal: None Derm: Rosacea - Past Surgical History Past Surgical History: Yes General: Other (4 weeks S/P bilateral inguinal hernia repairs) Ortho: Other (Left bicep tendon repair) Cardiovascular: Other Derm: Other - Present Medications Home Medications: Ambulatory Orders Medication Instructions Recorded Confirmed Albuterol Sulfate [Proventil Hfa 1 puffs INH PRN PRN 01/26/16 12/26/21 Inhaler] Montelukast [Singulair] 10 mg PO DAILY 01/26/16 12/26/21 Ciclesonide [Alvesco] 2 puffs IH BID 04/19/17 12/26/21 Aspirin Chewable [St Julio 81 mg PO DAILY 06/07/19 12/26/21 Aspirin] Atorvastatin [Lipitor] 10 mg PO DAILY 06/07/19 12/26/21 Cholecalciferol (Vitamin D3) 1,000 unit PO DAILY 06/07/19 12/26/21 [Vitamin D3] Dextroamphetamine/Amphetamine 5 mg PO Q48H 06/07/19 12/26/21 [Adderall Xr 5 mg Capsule] Dupilumab [Dupixent Syringe] 300 mg SQ Q14D 06/07/19 12/26/21 Folic Acid 1 mg PO DAILY 06/07/19 12/26/21 Furosemide 80 mg PO DAILY 06/07/19 12/26/21 Ipratropium/Albuterol [Combivent 2 puffs IH Q6H PRN 06/07/19 12/26/21 Respimat] Multivitamin [Multiple Vitamins] 1 each PO DAILY 06/07/19 12/26/21 [place]-3S/Dha/Epa/Fish Oil [Fish 1 each PO DAILY 06/07/19 12/26/21 Oil 1,000 mg Softgel] Potassium Chloride 10 meq PO DAILY 06/07/19 12/26/21 Salmeterol Xinafoate [Serevent 1 puffs INH BID 06/07/19 12/26/21 Diskus] Testosterone Cypionate 200 mg IM MOTH 06/07/19 12/26/21 Zolpidem Tartrate [Ambien] 10 mg PO QPM PRN 06/07/19 12/26/21 lamoTRIgine [Lamictal] 150 mg PO DAILY 06/07/19 12/26/21 Amlodipine Besylate [Norvasc] 2.5 mg PO DAILY 08/12/21 12/26/21 Doxycycline Hyclate 100 mg PO DAILY 08/12/21 12/26/21 Nebivolol HCl 30 mg PO DAILY 08/12/21 12/26/21 cloNIDine [Catapres] 0.2 mg PO BID 08/12/21 12/26/21 hydrALAZINE [Apresoline] 50 mg PO TID 08/12/21 12/26/21 Amox/Clav 875/125 [Augmentin] 1 each PO Q12H #20 tablet 01/06/23 - Allergies Allergies/Adverse Reactions: Allergies Allergy/AdvReac Type Severity Reaction Status Date / Time aripiprazole Allergy Respiratory Verified 01/06/23 15:41 - Social History Does the pt smoke?: No Smoking Status: Former smoker Does the pt drink ETOH?: Yes Does the pt have substance abuse?: No - Immunizations Immunizations are current?: Yes - POLST Patient has POLST: No PD ED PE NORMAL - Vitals Vital signs reviewed: Yes - General General: Alert and oriented X 3, No acute distress - Cardiac Cardiac: RRR, No murmur - Respiratory Respiratory: No respiratory distress, Other (Wheezy throughout with bronchial breath sounds at the left base. Nonlabored.) - Abdomen Abdomen: Non tender - Extremities Extremities: No edema, No calf tenderness / cord - Neuro Neuro: Alert and oriented X 3, Normal speech Results - Vitals Vitals: Vital Signs - 24 hr 01/06/23 01/06/23 15:36 16:19 Temperature 36.4 C L Heart Rate 76 61 Respiratory 24 16 Rate Blood Pressure 167/97 H 160/102 H O2 Saturation 96 94 Oxygen O2 Source Room air - Labs Labs: Laboratory Tests 01/06/23 01/06/23 01/06/23 15:57 15:57 15:57 WBC 11.6 H RBC 5.36 Hgb 15.5 Hct 46.1 MCV 86.0 MCH 28.9 MCHC 33.6 RDW 13.3 Plt Count 350 MPV 9.4 Neut # (Auto) 9.2 H Lymph # (Auto) 1.6 [place] # (Auto) 0.7 Eos # (Auto) 0.0 Baso # (Auto) 0.0 Absolute Nucleated RBC 0.00 Nucleated RBC % 0.0 Sodium 139 Potassium 3.3 L Chloride 101 Carbon Dioxide 27 Anion Gap 11.0 BUN 27 H Creatinine 1.4 H Estimated GFR (MDRD) 51 L Glucose 127 H Lactic Acid 1.1 Calcium 9.7 Total Bilirubin 0.6 AST 23 ALT 24 Alkaline Phosphatase 68 Total Protein 7.7 Albumin 4.2 Globulin 3.5 Albumin/Globulin Ratio 1.2 - Rads (name of study) 2 view chest x-ray showing left basilar hazy opacity favoring atelectasis Relevant Findings:: Final report received, EMP independent interpretation of test PD Medical Decision Making - ED course ED course: 67-year-old gentleman with respiratory infection on top of poorly controlled asthma. Previous x-ray suggestive of pneumonia. Today's x-ray pneumonia versus atelectasis. Its not clear if he is actually failed outpatient treatment but given his poor pulmonary status to start with we will change around his antibiotics to Augmentin and doxycycline. No doxycycline was prescribed as he has plenty at home. Departure - Departure Disposition: Home, Self Care Clinical Impression: Pneumonia Qualifiers: Laterality: left Lung location: lower lobe of lung Condition: Good Record reviewed to determine appropriate education?: Yes Instructions: Pneumonia Dc Prescriptions: Amox/Clav 875/125 [Augmentin] 1 each PO Q12H #20 tablet Comments: You were seen today for potential pneumonia. The radiologist did not feel that your x-ray change significantly from Thursday, and noted that it could be atelectasis as well. Labs were notable for white count of 11.6, not clear if that is related to infection or the steroids you are on. Your creatinine today is 1.4, slightly better than the last time we checked it. Lactate level was normal suggesting against severe illness or sepsis. We do a blood cultures pending. I am adding Augmentin, and you should add to that doxycycline 100 mg p.o. twice daily from the stash you already have for your rosacea. Return if worse, follow-up closely with your home connect lpn.
[2023-01-06 16:10] LABS: BASOPHILS % (AUTO) 0.3 %; EOSINOPHILS % (AUTO) 0.2 %; HCT - HEMATOCRIT 46.1 % (42.0-52.0); HGB - HEMOGLOBIN 15.5 g/dL (14.0-18.0); LYMPHOCYTES # (AUTO) 1.6 10^3/uL (1.5-3.5); LYMPHOCYTES % (AUTO) 13.9 %; MEAN CORPUSCULAR HEMOGLOBIN 28.9 pg (27.0-31.0); MEAN CORPUSCULAR HGB CONC 33.6 g/dL (32.0-36.0); MEAN PLATELET VOLUME 9.4 fL (7.4-11.4); MONOCYTES # (AUTO) 0.7 10^3/uL (0.0-1.0); MONOCYTES % (AUTO) 6.1 %; NEUTROPHILS # (AUTO) 9.2 10^3/uL (1.5-6.6); NEUTROPHILS % (AUTO) 78.7 %; PLT - PLATELET COUNT 350 10^3/uL (130-450); RED BLOOD COUNT 5.36 10^6/uL (4.70-6.10); RED CELL DISTRIBUTION WIDTH 13.3 % (12.0-15.0); WHITE BLOOD COUNT 11.6 x10^3/uL (4.8-10.8)
[2023-01-06 16:16] LABS: ALBUMIN 4.2 g/dL (3.2-5.5); ALBUMIN/GLOBULIN RATIO 1.2 (1.0-2.2); BILIRUBIN,TOTAL 0.6 mg/dL (0.2-1.0); CALCIUM 9.7 mg/dL (8.5-10.3); CREATININE 1.4 mg/dL (0.6-1.2); POTASSIUM 3.3 mmol/L (3.5-5.0); TOTAL PROTEIN 7.7 g/dL (6.7-8.2)
[2023-01-06] MEDS ORDERED: cefTRIAXone 1 GM VIAL ONE (16:19)
--- NOTE | 2023-01-06 16:41 | XRAY Report ---
PROCEDURE: Chest 2 View X-Ray INDICATIONS: reeval pna TECHNIQUE: 2 views of the chest were acquired. COMPARISON: 01/02/2023 FINDINGS: Surgical changes and devices: None. Lungs and pleura: No pleural effusions or pneumothorax. Minimal streaky bibasilar opacities relative ly stable in appearance. No new focal consolidation seen. Mediastinum: Mediastinal contours appear normal. Heart size is normal. Bones and chest wall: No suspicious bony lesions. Overlying soft tissues appear unremarkable. Red emonstration of colonic interposition between the liver and the right hemidiaphragm. IMPRESSION: Mild streaky bibasilar opacities not significantly changed. Findings favored to represent atelectasis . No new focal airspace disease/consolidation. Reviewed by: Adam Guaman MD on 01/06/2023 4:40 PM PDT Approved by: Adam Guaman MD on 01/06/2023 4:40 PM PDT Station ID: [id number]
[2023-01-06 17:08] VITALS: BP 153/94
== END 2023-01-06 17:34 | disposition home or self-care (01) ==
LOC: ED 15:32
DX: J18.9 Pneumonia, unspecified organism (principal); Z87.891 Personal history of nicotine dependence
CPT/HCPCS: 36415; 80053; 83605; 85025; 87040; 96365; 99284

== ENCOUNTER 2023-01-09 14:14 | Outpatient (CLI) | payer MEDICARE, OTHER ==
--- NOTE | 2023-01-09 15:35 | CT Report ---
PROCEDURE: CHEST WO INDICATIONS: PNEUMONIA, UNSPECIFIED ORGANISM TECHNIQUE: Noncontrast 1mm axial images were acquired from the pulmonary apices to the posterior costophrenic an gles. Axial 5 mm soft tissue kernel reconstructions were performed as well as 8 mm axial MIP and cor onal and sagittal 5 mm reformations. For radiation dose reduction, the following was used: automate d exposure control, adjustment of mA and/or kV according to patient size. COMPARISON: Chest radiographs 01/06/2023, 06/07/2019 FINDINGS: Images are denoted as (series #/image #). Visualized thyroid: Possible bilateral thyroid nodules measuring up to 2.2 cm in the right lobe of th e thyroid gland. The thyroid is not well evaluated by CT. Lymph nodes: No evidence of thoracic lymphadenopathy however evaluation for mediastinal and hilar josefina nopathy is limited in the absence of intravenous contrast. Vasculature: Aorta and main pulmonary artery diameters are within normal range. Heart: No pericardial effusion. Multivessel coronary artery calcifications and/or stents. 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 Multiple hyperdense objects are present along the right hemidiaphragm, possibly sequela of prior diaphragmati c plication. There are bandlike opacities present at both lung bases, likely atelectasis. No definite lobar consolidation. No pleural effusion or pneumothorax. Chest wall/musculoskeletal: Multilevel degenerative change of the visualized spine. Visualized upper abdomen: Right kidney is not visualized may be surgically absent. IMPRESSION: 1. Marked eventration of the right hemidiaphragm present as before, with possible postsurgical sequel a of diaphragmatic plication. Correlation with prior surgical history may be helpful. 2. Band like opacities present at both lung bases likely represents scarring and/or atelectasis. No d efinite lobar consolidation visualized. 3. Possible bilateral thyroid nodules. The thyroid gland is not well evaluated by CT. Further evaluat ion with thyroid ultrasound is recommended per ACR guidelines. Reviewed by: Fredy Cross MD on 01/09/2023 3:34 PM PDT Approved by: Fredy Cross MD on 01/09/2023 3:34 PM PDT Station ID: [id number]
== END 2023-01-09 14:15 | disposition home or self-care (01) ==
LOC: DI 14:14
PROVIDERS: ATTEND Family Medicine
DX: J18.9 Pneumonia, unspecified organism (principal)

== ENCOUNTER 2023-01-09 14:38 | Emergency (ER) | payer MEDICARE, OTHER ==
[2023-01-09] MEDS ORDERED: methylPREDNISolone SUCCINATE 125 MG/2 ML VIAL IVP STA (16:58)
[2023-01-09] MEDS ORDERED: IPRATROPIUM/ALBUTEROL 3 ML NEB INH STA (16:58)
[2023-01-09 17:10] LABS: BASOPHILS % (AUTO) 0.2 %; EOSINOPHILS % (AUTO) 0.1 %; HCT - HEMATOCRIT 46.6 % (42.0-52.0); HGB - HEMOGLOBIN 15.2 g/dL (14.0-18.0); LYMPHOCYTES # (AUTO) 2.1 10^3/uL (1.5-3.5); LYMPHOCYTES % (AUTO) 14.5 %; MEAN CORPUSCULAR HEMOGLOBIN 28.6 pg (27.0-31.0); MEAN CORPUSCULAR HGB CONC 32.6 g/dL (32.0-36.0); MEAN CORPUSCULAR VOLUME 87.6 fL (80.0-94.0); MEAN PLATELET VOLUME 9.5 fL (7.4-11.4); MONOCYTES # (AUTO) 1.2 10^3/uL (0.0-1.0); MONOCYTES % (AUTO) 8.1 %; NEUTROPHILS # (AUTO) 10.8 10^3/uL (1.5-6.6); PLT - PLATELET COUNT 349 10^3/uL (130-450); RED BLOOD COUNT 5.32 10^6/uL (4.70-6.10); RED CELL DISTRIBUTION WIDTH 13.5 % (12.0-15.0); WHITE BLOOD COUNT 14.3 x10^3/uL (4.8-10.8)
[2023-01-09 17:22] LABS: ALBUMIN 3.8 g/dL (3.2-5.5); ALBUMIN/GLOBULIN RATIO 1.2 (1.0-2.2); BILIRUBIN,TOTAL 0.6 mg/dL (0.2-1.0); CALCIUM 9.3 mg/dL (8.5-10.3); CREATININE 1.5 mg/dL (0.6-1.2); POTASSIUM 3.5 mmol/L (3.5-5.0); TOTAL PROTEIN 7.1 g/dL (6.7-8.2)
[2023-01-09 17:31] VITALS: BP 136/90
--- NOTE | 2023-01-09 18:30 | ED Physician Documentation ---
History of Present Illness - Stated complaint Stated Complaint: SOA - Chief complaint Chief Complaint: Resp - Additonal information Additional information: Patient is 67-year-old male presenting to the emergency department with shortness of breath. Symptoms ongoing x3 weeks. Reports 3 weeks ago developed upper respiratory tract style symptoms. States that these have resolved but he is having persistent episodes of wheezing that is made worse by laying supine and is made it difficult for him to sleep. Has been seen by primary care, urgent care, seen here in the emergency department and today had an outpatient CT scan of his chest performed. Reports is currently finishing a course of prednisone and is on 2 antibiotics for pneumonia. Review of Systems Constitutional: denies: Fever Eyes: denies: Loss of vision Ears: denies: Loss of hearing Nose: denies: Rhinorrhea / runny nose Throat: denies: Dental pain / toothache Respiratory: reports: Dyspnea, Cough, Wheezing GI: denies: Abdominal Pain, Nausea, Vomiting : denies: Dysuria PD PAST MEDICAL HISTORY - Past Medical History Cardiovascular: Hypertension, Other Respiratory: Asthma, Other (Paralyzed right hemidiaphragm) Endocrine/Autoimmune: None GI: None : Benign prostate hypertrophy Psych: Post traumatic stress disorder Musculoskeletal: None Derm: Rosacea - Past Surgical History Past Surgical History: Yes General: Other (4 weeks S/P bilateral inguinal hernia repairs) Ortho: Other (Left bicep tendon repair) Cardiovascular: Other Derm: Other - Present Medications Home Medications: Ambulatory Orders Medication Instructions Recorded Confirmed Albuterol Sulfate [Proventil Hfa 1 puffs INH PRN PRN 01/26/16 12/26/21 Inhaler] Montelukast [Singulair] 10 mg PO DAILY 01/26/16 12/26/21 Ciclesonide [Alvesco] 2 puffs IH BID 04/19/17 12/26/21 Aspirin Chewable [St Julio 81 mg PO DAILY 06/07/19 12/26/21 Aspirin] Atorvastatin [Lipitor] 10 mg PO DAILY 06/07/19 12/26/21 Cholecalciferol (Vitamin D3) 1,000 unit PO DAILY 06/07/19 12/26/21 [Vitamin D3] Dextroamphetamine/Amphetamine 5 mg PO Q48H 06/07/19 12/26/21 [Adderall Xr 5 mg Capsule] Dupilumab [Dupixent Syringe] 300 mg SQ Q14D 06/07/19 12/26/21 Folic Acid 1 mg PO DAILY 06/07/19 12/26/21 Furosemide 80 mg PO DAILY 06/07/19 12/26/21 Ipratropium/Albuterol [Combivent 2 puffs IH Q6H PRN 06/07/19 12/26/21 Respimat] Multivitamin [Multiple Vitamins] 1 each PO DAILY 06/07/19 12/26/21 [place]-3S/Dha/Epa/Fish Oil [Fish 1 each PO DAILY 06/07/19 12/26/21 Oil 1,000 mg Softgel] Potassium Chloride 10 meq PO DAILY 06/07/19 12/26/21 Salmeterol Xinafoate [Serevent 1 puffs INH BID 06/07/19 12/26/21 Diskus] Testosterone Cypionate 200 mg IM MOTH 06/07/19 12/26/21 Zolpidem Tartrate [Ambien] 10 mg PO QPM PRN 06/07/19 12/26/21 lamoTRIgine [Lamictal] 150 mg PO DAILY 06/07/19 12/26/21 Amlodipine Besylate [Norvasc] 2.5 mg PO DAILY 08/12/21 12/26/21 Doxycycline Hyclate 100 mg PO DAILY 08/12/21 12/26/21 Nebivolol HCl 30 mg PO DAILY 08/12/21 12/26/21 cloNIDine [Catapres] 0.2 mg PO BID 08/12/21 12/26/21 hydrALAZINE [Apresoline] 50 mg PO TID 08/12/21 12/26/21 Amox/Clav 875/125 [Augmentin] 1 each PO Q12H #20 tablet 01/06/23 - Allergies Allergies/Adverse Reactions: Allergies Allergy/AdvReac Type Severity Reaction Status Date / Time aripiprazole Allergy Respiratory Verified 01/09/23 14:45 - Social History Does the pt smoke?: No Smoking Status: Former smoker Does the pt drink ETOH?: Yes Does the pt have substance abuse?: No - Immunizations Immunizations are current?: Yes - POLST Patient has POLST: No PD ED PE NORMAL - Vitals Vital signs reviewed: Yes - General General: Alert and oriented X 3, No acute distress - HEENT HEENT: Atraumatic - Neck Neck: Supple, no meningeal sign - Cardiac Cardiac: RRR - Respiratory Respiratory: Other (Scant end expiratory wheezing) - Abdomen Abdomen: Normal bowel sounds - Male Male : Deferred, Pt declined - Back Back: No CVA TTP - Derm Derm: Normal color - Extremities Extremities: No deformity Results - Vitals Vitals: Oxygen O2 Source Room air - EKG (time done) 1803 EKG releavant findings:: EKG personally interpreted by author of this note. Relevant findings are: Sinus rhythm with rate 55 bpm. Left axis deviation. Normal DC, QTc intervals. Right bundle branch block morphology. No ST segment elevations, ST segment depressions or excessive discordance in any lead. - Labs Labs: Laboratory Tests 01/09/23 01/09/23 01/09/23 17:03 17:03 17:03 WBC 14.3 H RBC 5.32 Hgb 15.2 Hct 46.6 MCV 87.6 MCH 28.6 MCHC 32.6 RDW 13.5 Plt Count 349 MPV 9.5 Neut # (Auto) 10.8 H Lymph # (Auto) 2.1 [place] # (Auto) 1.2 H Eos # (Auto) 0.0 Baso # (Auto) 0.0 Absolute Nucleated RBC 0.00 Nucleated RBC % 0.0 Sodium 139 Potassium 3.5 Chloride 102 Carbon Dioxide 26 Anion Gap 11.0 BUN 29 H Creatinine 1.5 H Estimated GFR (MDRD) 47 L Glucose 119 H Calcium 9.3 Total Bilirubin 0.6 AST 18 ALT 23 Alkaline Phosphatase 60 Troponin I High Sens 6.2 B-Natriuretic Peptide Total Protein 7.1 Albumin 3.8 Globulin 3.3 Albumin/Globulin Ratio 1.2 01/09/23 17:03 WBC RBC Hgb Hct MCV MCH MCHC RDW Plt Count MPV Neut # (Auto) Lymph # (Auto) [place] # (Auto) Eos # (Auto) Baso # (Auto) Absolute Nucleated RBC Nucleated RBC % Sodium Potassium Chloride Carbon Dioxide Anion Gap BUN Creatinine Estimated GFR (MDRD) Glucose Calcium Total Bilirubin AST ALT Alkaline Phosphatase Troponin I High Sens B-Natriuretic Peptide 40 Total Protein Albumin Globulin Albumin/Globulin Ratio PD Medical Decision Making - ED course Complexity details: reviewed results, re-evaluated patient, d/w patient ED course: Patient 67-year-old male presenting to the emergency department with shortness of breath. This is in the setting known history of asthma. Additionally patient has known history of hypertension, coronary artery disease, chronic paralysis of the right hemidiaphragm. CT chest was performed on an outpatient basis earlier today. Radiology was contacted and they graciously read this report. No indications fluid overload, active infection or other acute intrathoracic pathology. Patient afebrile, otherwise hemodynamically stable on arrival to the emergency department. Maintaining adequate oxygen saturations on room air. Scant end expiratory wheezes were noted on arrival. A DuoNeb and methylprednisolone was ordered. EKG demonstrated a stable right bundle branch without indications of acute cardiac ischemia or dysrhythmia. Troponin and beta natruretic peptide were both negative. Patient does not demonstrate tachypnea, tachycardia and is otherwise low risk [place], PERC negative for pulmonary emboli. Ambulatory trial was ordered however upon reevaluation patient reported feeling well enough to go home. He does report that he is currently taking a course of prednisone. We will encourage him to finish this medication as well as to follow-up carefully with primary care. Clear return precautions given. Departure - Departure Disposition: 01 Home, Self Care Clinical Impression: Shortness of breath Comments: Thank you for allowing us to care for you today [facility]. Today in the emergency department you were evaluated for any possible life- threatening medical emergency. The testing performed in the emergency department including your EKG, blood work including your troponin, measurement of heart injury and your beta natruretic peptide, a measurement of heart failure were all very reassuring. These tests were normal and there is no indication of acute heart failure at this time. The CT scan performed today also did not show any persistent pneumonia or signs of infection. I would like you to continue to take your currently prescribed prednisone and regularly use either nebulizer or rescue inhaler at home, 4 puffs every 4 hours for the next 3 to 4 days as needed. Please continue to follow-up with both your clarity developer as well as with your primary care doctor. If it anytime you have new or worsening symptoms please not hesitate to return. Discharge Date/Time: 01/09/23 19:08
== END 2023-01-09 19:08 | disposition home or self-care (01) ==
LOC: ED 14:38
DX: R06.02 Shortness of breath (principal); Z87.891 Personal history of nicotine dependence; J18.8 Other pneumonia, unspecified organism
CPT/HCPCS: 36415; 80053; 83880; 84484; 85025; 93005; 94640; 94664; 96374; 99283

== ENCOUNTER 2023-02-07 11:55 | Outpatient (CLI) | payer MEDICARE, OTHER | END 2023-02-07 23:59 | disposition critical access hospital (66) | LOC: EMS 11:55 | DX: M79.602 Pain in left arm (principal); R68.84 Jaw pain; R11.0 Nausea; R42 Dizziness and giddiness; R53.81 Other malaise | CPT/HCPCS: A0425; A0427 ==

== ENCOUNTER 2023-02-07 12:17 | Emergency (ER) | payer MEDICARE, OTHER ==
--- NOTE | 2023-02-07 12:26 | ED Physician Documentation ---
PD HPI DYSPNEA - Stated complaint Stated Complaint: LT ARM PX - History obtained from History obtained from: Patient - Additional information Additional information: 67-year-old gentleman with history of coronary disease. Stented to the LAD about 9 months ago at [facility]. Also has a history of paralyzed right hemidiaphragm, labile hypertension, asthma and pneumonia, BPH. He presents today with an episode of left armpit pain radiating down the left arm and up to the jaw associated with diaphoresis, dizziness, and mild shortness of breath starting about an hour and a half ago. Mostly gone now. Had aspirin prior to arrival. He notes that his blood pressure during the episode was low for him, about 80/50 with a room air saturation of 85%. PD PAST MEDICAL HISTORY - Past Medical History Cardiovascular: Hypertension, Other Respiratory: Asthma, Other (Paralyzed right hemidiaphragm) Endocrine/Autoimmune: None GI: None : Benign prostate hypertrophy Psych: Post traumatic stress disorder Musculoskeletal: None Derm: Rosacea - Past Surgical History Past Surgical History: Yes General: Other (4 weeks S/P bilateral inguinal hernia repairs) Ortho: Other (Left bicep tendon repair) Cardiovascular: Other Derm: Other - Present Medications Home Medications: Ambulatory Orders Medication Instructions Recorded Confirmed Albuterol Sulfate [Proventil Hfa 1 puffs INH PRN PRN 01/26/16 02/07/23 Inhaler] Montelukast [Singulair] 10 mg PO DAILY 01/26/16 02/07/23 Ciclesonide [Alvesco] 2 puffs IH BID 04/19/17 02/07/23 Aspirin Chewable [St Julio 81 mg PO DAILY 06/07/19 02/07/23 Aspirin] Atorvastatin [Lipitor] 10 mg PO DAILY 06/07/19 02/07/23 Cholecalciferol (Vitamin D3) 1,000 unit PO DAILY 06/07/19 02/07/23 [Vitamin D3] Dextroamphetamine/Amphetamine 5 mg PO Q48H 06/07/19 02/07/23 [Adderall Xr 5 mg Capsule] Dupilumab [Dupixent Syringe] 300 mg SQ Q14D 06/07/19 02/07/23 Folic Acid 1 mg PO DAILY 06/07/19 02/07/23 Furosemide 80 mg PO DAILY 06/07/19 12/26/21 Ipratropium/Albuterol [Combivent 2 puffs IH Q6H PRN 06/07/19 12/26/21 Respimat] Multivitamin [Multiple Vitamins] 1 each PO DAILY 06/07/19 02/07/23 [place]-3S/Dha/Epa/Fish Oil [Fish 1 each PO DAILY 06/07/19 02/07/23 Oil 1,000 mg Softgel] Potassium Chloride 10 meq PO DAILY 06/07/19 12/26/21 Salmeterol Xinafoate [Serevent 1 puffs INH BID 06/07/19 02/07/23 Diskus] Testosterone Cypionate 200 mg IM MOTH 06/07/19 02/07/23 Zolpidem Tartrate [Ambien] 10 mg PO QPM PRN 06/07/19 02/07/23 lamoTRIgine [Lamictal] 150 mg PO DAILY 06/07/19 02/07/23 Amlodipine Besylate [Norvasc] 2.5 mg PO DAILY 08/12/21 02/07/23 Doxycycline Hyclate 100 mg PO DAILY 08/12/21 02/07/23 Nebivolol HCl 30 mg PO DAILY 08/12/21 12/26/21 cloNIDine [Catapres] 0.2 mg PO BID 08/12/21 12/26/21 hydrALAZINE [Apresoline] 50 mg PO TID 08/12/21 02/07/23 Amox/Clav 875/125 [Augmentin] 1 each PO Q12H #20 tablet 01/06/23 - Allergies Allergies/Adverse Reactions: Allergies Allergy/AdvReac Type Severity Reaction Status Date / Time aripiprazole Allergy Respiratory Verified 01/09/23 14:45 - Social History Does the pt smoke?: No Smoking Status: Former smoker Does the pt drink ETOH?: Yes Does the pt have substance abuse?: No - Immunizations Immunizations are current?: Yes - POLST Patient has POLST: No PD ED PE NORMAL - Vitals Vital signs reviewed: Yes - General General: Alert and oriented X 3, No acute distress - HEENT HEENT: PERRL, EOMI - Neck Neck: Supple, no meningeal sign, No bony TTP - Cardiac Cardiac: RRR, No murmur, Strong equal pulses (Radial) - Respiratory Respiratory: No respiratory distress, Clear bilaterally - Abdomen Abdomen: Non tender - Extremities Extremities: No edema, No calf tenderness / cord - Neuro Neuro: Alert and oriented X 3, Normal speech Results - Vitals Vitals: Vital Signs - 24 hr 02/07/23 02/07/23 02/07/23 12:22 13:29 14:00 Temperature 36.9 C Heart Rate 63 61 58 L Respiratory 20 14 15 Rate Blood Pressure 149/100 H 110/65 135/91 H O2 Saturation 96 97 96 02/07/23 02/07/23 14:38 15:59 Temperature Heart Rate 56 L 69 Respiratory 14 20 Rate Blood Pressure 122/75 133/81 H O2 Saturation 97 94 Oxygen O2 Source Room air - EKG (time done) 1219 EKG releavant findings:: EKG personally interpreted by author of this note. Relevant findings are: Rate: Rate (enter#) (62) Rhythm: NSR [place]: Normal Intervals: RBBB, Other (LAFB) QRS: LVH Ischemia: Normal ST segments 1659 EKG releavant findings:: EKG personally interpreted by author of this note. Relevant findings are: Rate: Rate (enter#) (55) Rhythm: NSR Intervals: RBBB, Other (Left anterior fascicular block) QRS: LVH Ischemia: No: ST elevation c/w ischemia, ST depression - Labs Labs: Laboratory Tests 02/07/23 02/07/23 02/07/23 12:32 12:32 12:32 WBC 12.4 H RBC 5.13 Hgb 14.7 Hct 45.1 MCV 87.9 MCH 28.7 MCHC 32.6 RDW 14.2 Plt Count 222 MPV 9.5 Neut # (Auto) 9.1 H Lymph # (Auto) 1.9 [place] # (Auto) 1.1 H Eos # (Auto) 0.1 Baso # (Auto) 0.0 Absolute Nucleated RBC 0.00 Nucleated RBC % 0.0 D-Dimer 210.0 Sodium 141 Potassium 3.1 L Chloride 104 Carbon Dioxide 29 Anion Gap 8.0 BUN 42 H Creatinine 1.6 H Estimated GFR (MDRD) 43 L Glucose 133 H Calcium 9.1 Total Bilirubin 1.0 AST 21 ALT 25 Alkaline Phosphatase 43 Troponin I High Sens Total Protein 6.4 L Albumin 3.4 Globulin 3.0 Albumin/Globulin Ratio 1.1 Lipase 57 H SARS-CoV-2 (PCR) 02/07/23 02/07/23 12:32 14:02 WBC RBC Hgb Hct MCV MCH MCHC RDW Plt Count MPV Neut # (Auto) Lymph # (Auto) [place] # (Auto) Eos # (Auto) Baso # (Auto) Absolute Nucleated RBC Nucleated RBC % D-Dimer Sodium Potassium Chloride Carbon Dioxide Anion Gap BUN Creatinine Estimated GFR (MDRD) Glucose Calcium Total Bilirubin AST ALT Alkaline Phosphatase Troponin I High Sens 29.0 H* Total Protein Albumin Globulin Albumin/Globulin Ratio Lipase SARS-CoV-2 (PCR) NOT DETECTED PD Medical Decision Making - ED course ED course: 67-year-old gentleman with history of coronary disease presents with resolved armpit pain radiating to the jaw and left arm. EKG is nonischemic. Mild hypertension here with borderline bradycardia. CBC showing mild leukocytosis. CMP showing stable elevation of creatinine in his usual range and mild hypokal emia. His troponin is mildly positive, and I suspect this is consistent with unstable angina with positive troponin. Note made that prior troponins checked with similar renal function were normal. Patient's train engineer is Dr. Bean Garrett at [facility] and we are calling their group for consultation and likely transfer at 1:30 PM. I spoke with Dr. Velazquez, cardiology at [facility] at 2:10 PM. Recommends continuing usual meds of Lovenox and agrees the patient could should come down. There is some bed capacity issue at [facility] and it may be a while before he is formally excepted and I speak with the hospitalist. Presumptively excepted to [facility] at 3:[address] Danae Genao. Transfer center there notes that it may be sometime before transfer. Just before transfer around 4:50 PM he developed recurrent chest pain, very mild. Repeat EKG was done without signs of ischemia and nitroglycerin paste was applied. Departure - Departure Disposition: 02 Transfer Acute Care Hosp Clinical Impression: Unstable angina Condition: Serious
[2023-02-07 12:37] LABS: BASOPHILS % (AUTO) 0.3 %; EOSINOPHILS # (AUTO) 0.1 10^3/uL (0.0-0.7); EOSINOPHILS % (AUTO) 1.1 %; HCT - HEMATOCRIT 45.1 % (42.0-52.0); HGB - HEMOGLOBIN 14.7 g/dL (14.0-18.0); LYMPHOCYTES # (AUTO) 1.9 10^3/uL (1.5-3.5); LYMPHOCYTES % (AUTO) 15.5 %; MEAN CORPUSCULAR HEMOGLOBIN 28.7 pg (27.0-31.0); MEAN CORPUSCULAR HGB CONC 32.6 g/dL (32.0-36.0); MEAN CORPUSCULAR VOLUME 87.9 fL (80.0-94.0); MEAN PLATELET VOLUME 9.5 fL (7.4-11.4); MONOCYTES # (AUTO) 1.1 10^3/uL (0.0-1.0); MONOCYTES % (AUTO) 8.6 %; NEUTROPHILS # (AUTO) 9.1 10^3/uL (1.5-6.6); NEUTROPHILS % (AUTO) 73.8 %; PLT - PLATELET COUNT 222 10^3/uL (130-450); RED BLOOD COUNT 5.13 10^6/uL (4.70-6.10); RED CELL DISTRIBUTION WIDTH 14.2 % (12.0-15.0); WHITE BLOOD COUNT 12.4 x10^3/uL (4.8-10.8)
[2023-02-07 12:52] LABS: ALBUMIN 3.4 g/dL (3.2-5.5); ALBUMIN/GLOBULIN RATIO 1.1 (1.0-2.2); CALCIUM 9.1 mg/dL (8.5-10.3); CREATININE 1.6 mg/dL (0.6-1.2); POTASSIUM 3.1 mmol/L (3.5-5.0); TOTAL PROTEIN 6.4 g/dL (6.7-8.2)
[2023-02-07] MEDS ORDERED: ENOXAPARIN 100 MG/ML SYRINGE SUBQ STA (13:25)
[2023-02-07] MEDS ORDERED: POTASSIUM BICARB 25 MEQ TABLET PO STA (13:25)
--- NOTE | 2023-02-07 13:37 | XRAY Report ---
PROCEDURE: Chest 1 View X-Ray INDICATIONS: Chest Pain TECHNIQUE: One view of the chest was acquired. COMPARISON: 01/06/2023, 01/02/2023. FINDINGS: Surgical changes and devices: None. Lungs and pleura: Redemonstration of marked eventration of the right hemidiaphragm. Streaky bibasila r opacities. No new focal consolidation. No pleural effusion or pneumothorax. Mediastinum: Mediastinal contours appear normal. Heart size is stable. Bones and chest wall: No suspicious bony lesions. Overlying soft tissues appear unremarkable. IMPRESSION: Stable cardiopulmonary examination without acute radiographic abnormalities. Persistent streaky bibas ilar opacities favored to represent atelectasis. No new focal consolidation. Stable eventration of th e right hemidiaphragm. Reviewed by: Adam Guaman MD on 02/07/2023 1:36 PM PDT Approved by: Adam Guaman MD on 02/07/2023 1:36 PM PDT Station ID: [id number]
[2023-02-07] MEDS ORDERED: ONDANSETRON 4 MG/2 ML VIAL IVP PRN (14:28)
[2023-02-07] MEDS ORDERED: ACETAMINOPHEN 500 MG TABLET PO PRN (14:28)
[2023-02-07] MEDS ORDERED: NITROGLYCERIN 2% PASTE TOP STA (16:57)
[2023-02-07 17:20] VITALS: BP 143/89
[2023-02-07] MEDS ORDERED: carvediloL 3.125 MG TABLET PO SCH (21:00)
[2023-02-07] MEDS ORDERED: ATORVASTATIN 40 MG TABLET PO SCH (21:00)
[2023-02-07] MEDS ORDERED: ENOXAPARIN 100 MG/ML SYRINGE SUBQ SCH (21:00)
[2023-02-08] MEDS ORDERED: lamoTRIgine 25 MG TABLET PO SCH (09:00)
[2023-02-08] MEDS ORDERED: carvediloL 12.5 MG TABLET PO SCH (09:00)
[2023-02-08] MEDS ORDERED: LOSARTAN 50 MG TABLET PO SCH (09:00)
[2023-02-08] MEDS ORDERED: ASPIRIN CHEW 81 MG TABLET PO SCH (09:00)
[2023-02-08] MEDS ORDERED: CLOPIDOGREL 75 MG TABLET PO SCH (09:00)
[2023-02-08] MEDS ORDERED: amLODIPine 5 MG TABLET PO SCH (09:00)
[2023-02-08] MEDS ORDERED: lamoTRIgine 100 MG TABLET PO SCH (09:00)
== END 2023-02-07 17:20 | disposition short-term general hospital (02) ==
LOC: ED 12:17
DX: I20.0 Unstable angina (principal); I10 Essential (primary) hypertension; Z20.822 Contact with and (suspected) exposure to COVID-19; Z79.899 Other long term (current) drug therapy; Z87.891 Personal history of nicotine dependence; Z79.82 Long term (current) use of aspirin; Z79.51 Long term (current) use of inhaled steroids
CPT/HCPCS: 36415; 71045; 80053; 83690; 84484; 85025; 85379; 87635; 93005; 96372; 99285; A9270; J1650

== ENCOUNTER 2023-02-07 17:17 | Outpatient (CLI) | payer MEDICARE, OTHER | END 2023-02-07 23:59 | disposition short-term general hospital (02) | LOC: EMS 17:17 | PROVIDERS: ATTEND Emergency Medicine | DX: I21.4 Non-ST elevation (NSTEMI) myocardial infarction (principal) | CPT/HCPCS: A0425; A0426 ==

== ENCOUNTER 2023-07-01 19:19 | Outpatient (CLI) | payer MEDICARE, OTHER | END 2023-07-01 23:59 | disposition short-term general hospital (02) | LOC: EMS 19:19 | DX: M25.552 Pain in left hip (principal); Z96.642 Presence of left artificial hip joint; Z79.02 Long term (current) use of antithrombotics/antiplatelets | CPT/HCPCS: A0425; A0427; A0888 ==

== ENCOUNTER 2023-08-15 16:56 | Outpatient (CLI) | payer MEDICARE, OTHER | END 2023-08-15 16:57 | disposition critical access hospital (66) | LOC: EMS 16:56 | DX: R10.32 Left lower quadrant pain (principal); Z79.02 Long term (current) use of antithrombotics/antiplatelets | CPT/HCPCS: A0425; A0427 ==

== ENCOUNTER 2023-08-15 17:15 | Emergency (ER) | payer MEDICARE, OTHER ==
[2023-08-15] MEDS ORDERED: fentaNYL 100 MCG/2 ML VIAL IVP STA (17:29)
[2023-08-15] MEDS ORDERED: SODIUM CHLORIDE 0.9% 1,000 ML IV STA (17:29)
[2023-08-15] MEDS ORDERED: HYDROmorphone 1 MG/ML CARPUJECT IVP STA ×4 (17:47→22:25)
[2023-08-15 17:54] LABS: BASOPHILS # (AUTO) 0.1 10^3/uL (0.0-0.1); BASOPHILS % (AUTO) 0.4 %; EOSINOPHILS # (AUTO) 0.1 10^3/uL (0.0-0.7); EOSINOPHILS % (AUTO) 1.2 %; HGB - HEMOGLOBIN 14.6 g/dL (14.0-18.0); LYMPHOCYTES # (AUTO) 2.5 10^3/uL (1.5-3.5); LYMPHOCYTES % (AUTO) 21.6 %; MEAN CORPUSCULAR HEMOGLOBIN 29.3 pg (27.0-31.0); MEAN CORPUSCULAR HGB CONC 33.2 g/dL (32.0-36.0); MEAN CORPUSCULAR VOLUME 88.4 fL (80.0-94.0); MEAN PLATELET VOLUME 9.5 fL (7.4-11.4); MONOCYTES # (AUTO) 1.2 10^3/uL (0.0-1.0); MONOCYTES % (AUTO) 10.7 %; NEUTROPHILS # (AUTO) 7.5 10^3/uL (1.5-6.6); NEUTROPHILS % (AUTO) 65.7 %; PLT - PLATELET COUNT 282 10^3/uL (130-450); RED BLOOD COUNT 4.98 10^6/uL (4.70-6.10); RED CELL DISTRIBUTION WIDTH 13.2 % (12.0-15.0); WHITE BLOOD COUNT 11.4 x10^3/uL (4.8-10.8)
[2023-08-15 17:58] LABS: PT - PROTHROMBIN TIME 10.9 secs (9.9-12.6)
[2023-08-15 18:06] LABS: ALBUMIN/GLOBULIN RATIO 1.7 (1.0-2.2); BILIRUBIN,TOTAL 0.5 mg/dL (0.2-1.0); CALCIUM 9.3 mg/dL (8.5-10.3); CREATININE 1.6 mg/dL (0.6-1.3); POTASSIUM 3.2 mmol/L (3.5-4.5); TOTAL PROTEIN 6.3 g/dL (6.4-8.9)
--- NOTE | 2023-08-15 18:09 | ED Physician Documentation ---
History of Present Illness - Stated complaint Stated Complaint: L GROIN PX - Chief complaint Chief Complaint: Ext Problem - Additonal information Additional information: 68-year-old male presents emergency department for evaluation of excruciating left groin/inguinal pain. He reports that he stood up when he developed the sudden pain in his groin. He reports this is exactly the way it felt when he developed a left iliopsoas hematoma in mid June. At that time he was evaluated and treated at [facility]. Patient reports that he had a lengthy hospitalization and was discharged just 3-1/2 weeks ago. It was managed nonoperatively. Patient has past medical history significant for hypertension, CAD s/p stent to LAD within , esosinophilic asthma, and a paralyzed right hemidiaphragm On presentation to the emergency department the patient is moaning and groaning in pain. He is afebrile. He prefers to be in the right sided position with his legs drawn up. He will not allow himself to lay flat. Distal neurovascular exams of both legs is intact with good pulses and perfusion. Review of Systems Unable to obtain: Other (in pain) GI: reports: Other (left inguinal pain) PD PAST MEDICAL HISTORY - Past Medical History Past Medical History: Yes Cardiovascular: Hypertension, High cholesterol, Other Respiratory: Asthma, Other Endocrine/Autoimmune: None GI: None : Benign prostate hypertrophy Psych: Post traumatic stress disorder Musculoskeletal: None Derm: Rosacea - Past Surgical History Past Surgical History: Yes General: Other Ortho: Other Cardiovascular: Other Derm: Other - Present Medications Home Medications: Ambulatory Orders Medication Instructions Recorded Confirmed Albuterol Sulfate [Proventil Hfa 1 puffs INH PRN PRN 01/26/16 02/07/23 Inhaler] Montelukast [Singulair] 10 mg PO DAILY 01/26/16 02/07/23 Ciclesonide [Alvesco] 2 puffs IH BID 04/19/17 02/07/23 Aspirin Chewable [St Julio 81 mg PO DAILY 06/07/19 02/07/23 Aspirin] Atorvastatin [Lipitor] 10 mg PO DAILY 06/07/19 02/07/23 Cholecalciferol (Vitamin D3) 1,000 unit PO DAILY 06/07/19 02/07/23 [Vitamin D3] Dextroamphetamine/Amphetamine 5 mg PO Q48H 06/07/19 02/07/23 [Adderall Xr 5 mg Capsule] Dupilumab [Dupixent Syringe] 300 mg SQ Q14D 06/07/19 02/07/23 Folic Acid 1 mg PO DAILY 06/07/19 02/07/23 Furosemide 80 mg PO DAILY 06/07/19 12/26/21 Ipratropium/Albuterol [Combivent 2 puffs IH Q6H PRN 06/07/19 12/26/21 Respimat] Multivitamin [Multiple Vitamins] 1 each PO DAILY 06/07/19 02/07/23 Eden-3S/Dha/Epa/Fish Oil [Fish 1 each PO DAILY 06/07/19 02/07/23 Oil 1,000 mg Softgel] Potassium Chloride 10 meq PO DAILY 06/07/19 12/26/21 Salmeterol Xinafoate [Serevent 1 puffs INH BID 06/07/19 02/07/23 Diskus] Testosterone Cypionate 200 mg IM MOTH 06/07/19 02/07/23 Zolpidem Tartrate [Ambien] 10 mg PO QPM PRN 06/07/19 02/07/23 lamoTRIgine [Lamictal] 150 mg PO DAILY 06/07/19 02/07/23 Amlodipine Besylate [Norvasc] 2.5 mg PO DAILY 08/12/21 02/07/23 Doxycycline Hyclate 100 mg PO DAILY 08/12/21 02/07/23 Nebivolol HCl 30 mg PO DAILY 08/12/21 12/26/21 cloNIDine [Catapres] 0.2 mg PO BID 08/12/21 12/26/21 hydrALAZINE [Apresoline] 50 mg PO TID 08/12/21 02/07/23 Amox/Clav 875/125 [Augmentin] 1 each PO Q12H #20 tablet 01/06/23 - Allergies Allergies/Adverse Reactions: Allergies Allergy/AdvReac Type Severity Reaction Status Date / Time aripiprazole Allergy Respiratory Verified 01/09/23 14:45 - Social History Does the pt smoke?: No Smoking Status: Never smoker Does the pt drink ETOH?: Yes Does the pt have substance abuse?: No - Immunizations Immunizations are current?: Yes - POLST Patient has POLST: No PD ED PE EXPANDED - General General: Alert, In Pain, In distress - Abdomen Abdomen: Normal Bowel sounds. No: Tender to palpation (No tenderness elicited with palpation of the abdomen. Patient points to the left inner groin as the source of severe pain) - Male Male : Normal Exam - Derm Derm: Normal color, Warm and dry, Other (No ecchymosis noted. 2+ femoral pulse.) - Extremities Extremities: Normal. No: Deformity, Tenderness - Neuro Neuro: Alert and Oriented X 3, CNII-XII intact - GCS Eye Opening: Spontaneous Motor: Obeys Commands Verbal: Oriented Total: 15 Results - Vitals Vitals: Vital Signs - 24 hr 08/15/23 08/15/23 08/15/23 17:24 17:57 18:27 Temperature 35.9 C L Heart Rate 72 78 80 Respiratory 24 20 18 Rate Blood Pressure 159/116 H 142/119 H 171/100 H O2 Saturation 98 98 98 08/15/23 08/15/23 08/15/23 19:00 19:30 20:00 Temperature Heart Rate 75 75 81 Respiratory 18 15 15 Rate Blood Pressure 136/74 H 136/74 H 137/74 H O2 Saturation 98 92 94 08/15/23 20:22 Temperature Heart Rate 73 Respiratory 19 Rate Blood Pressure 137/76 H O2 Saturation 95 Oxygen O2 Source Room air - Labs Labs: Laboratory Tests 08/15/23 08/15/23 08/15/23 17:41 17:41 17:41 WBC 11.4 H RBC 4.98 Hgb 14.6 Hct 44.0 MCV 88.4 MCH 29.3 MCHC 33.2 RDW 13.2 Plt Count 282 MPV 9.5 Neut # (Auto) 7.5 H Lymph # (Auto) 2.5 Boyd # (Auto) 1.2 H Eos # (Auto) 0.1 Baso # (Auto) 0.1 Absolute Nucleated RBC 0.00 Nucleated RBC % 0.0 PT 10.9 INR 1.0 Sodium 139 Potassium 3.2 L Chloride 104 Carbon Dioxide 28 Anion Gap 7.0 BUN 31 H Creatinine 1.6 H Estimated GFR (MDRD) 43 L Glucose 98 Calcium 9.3 Total Bilirubin 0.5 AST 19 ALT 20 Alkaline Phosphatase 62 Total Protein 6.3 L Albumin 4.0 Globulin 2.3 Albumin/Globulin Ratio 1.7 Lipase 53 Urine Color Urine Clarity Urine pH Ur Specific [place] Urine Protein Urine Glucose (UA) Urine Ketones Urine Occult Blood Urine Nitrite Urine Bilirubin Urine Urobilinogen Ur Leukocyte Esterase Ur Microscopic Review Urine Culture Comments 08/15/23 08/15/23 20:30 21:41 WBC 11.6 H RBC 4.73 Hgb 13.8 L Hct 42.2 MCV 89.2 MCH 29.2 MCHC 32.7 RDW 13.2 Plt Count 251 MPV 9.3 Neut # (Auto) Lymph # (Auto) Boyd # (Auto) Eos # (Auto) Baso # (Auto) Absolute Nucleated RBC Nucleated RBC % PT INR Sodium Potassium Chloride Carbon Dioxide Anion Gap BUN Creatinine Estimated GFR (MDRD) Glucose Calcium Total Bilirubin AST ALT Alkaline Phosphatase Total Protein Albumin Globulin Albumin/Globulin Ratio Lipase Urine Color YELLOW Urine Clarity CLEAR Urine pH 6.0 Ur Specific [place] 1.010 Urine Protein NEGATIVE Urine Glucose (UA) NEGATIVE Urine Ketones NEGATIVE Urine Occult Blood NEGATIVE Urine Nitrite NEGATIVE Urine Bilirubin NEGATIVE Urine Urobilinogen 0.2 (NORMAL) Ur Leukocyte Esterase NEGATIVE Ur Microscopic Review NOT INDICATED Urine Culture Comments NOT INDICATED - Rads (name of study) CT abd/pelvis Relevant Findings:: Final report received (No acute abnormalities. Status post left total hip arthroplasty. Prominent size of the left iliac us muscle which may represent resolving intramuscular hematoma. Postsurgical changes of prior right nephrectomy. Diverticulosis without diverticulitis. Multiple left renal cyst.) PD Medical Decision Making - ED course Complexity details: reviewed old records, reviewed results, re-evaluated patient, d/w patient ED course: Archie Disla is a 68 y.o. male with asthma(eosinophilic), CAD s/p PCI, CKD, depression, diaphragmatic eventration, malignant melanoma, s/p left hip replacement August 2022, HLD, HTN, OLY, DJD, PTSD, scoliosis, ADD, renal cell CA s/p nephrectomypresents emergency department for evaluation of acute onset left inguinal/groin pain that occurred when he stood up from the couch. He does have a history of and a left iliopsoas hematoma and was hospitalized at [facility] 07/01/2023 through 07/05/2023. While hospitalized a CT showed a 12 x 5 x 5 cm hematoma of the left iliopsoas muscle. Subsequent angio of the pelvis showed no active bleeding into the hematoma. He was admitted to the hospital by general surgery and was managed nonoperatively. He never required a blood transfusion. Initially he had required several doses of Dilaudid. Patient reports to me that his presentation today is very similar to that of June on presentation he was writhing in pain preferring to remain in the position on the right side with his hips flexed. He would not tolerate leg extension. He was without fever, tachycardia or hypotension. CBC and electrolytes revealed a normal hemoglobin with 14.6. His electrolytes showed mild chronic kidney disease with a BUN of 31 and 1.6. Essentially unchanged from the labs obtained at [facility]. A CT of the abdomen pelvis with contrast and there was no obvious hematoma seen though imaging did make note of a larger than expected iliac us muscle. I discussed this finding with Dr. Guaman and he does not seem to feel that there is a hematoma present at this time. Subsequently I spoke on the phone with Dr. Asad Gallo who felt that the patient would not benefit from admission to the hospital as there did not appear to be an acute surgical dilemma and he recommended analgesia and discharge home. While here in the emergency department the patient has required several doses of Dilaudid as well as fentanyl with no resolution of his pain. At this point I am reaching out to [facility] to discuss the possibility of transfer or further recommendations in the care of this gentleman. 2130: I reevaluated the patient he reports that his pain is still uncontrolled and he does not feel like he can go home. Subsequently have spoken with Dr. Springer surgeon on-call at [facility]. He states that without any obvious hematoma there is no indication for transfer. He recommended following up with radiology to determine if they would recommend repeat angiogram. I then spoke with Dr. Guaman radiology on-call. He states that a limited pelvic CT without contrast could be completed at about midnight. The reason would be to look for an increase in size of the ileopsoas muscle to determine if hematoma is developing. Given the patient's chronic kidney disease we should delay angiography unless it is critical but could be considered early tomorrow and at that time we would recommend an angiogram to look for extravasation. Pt will be signed out to my night time colleague Dr. Alejandre to f/u on repeat pelvic CT results and analgesia Departure - Departure Clinical Impression: Left inguinal pain Forms: PCP List
[2023-08-15] MEDS ORDERED: iohexoL-300 100 ML VIAL IVP ONE (19:14)
--- NOTE | 2023-08-15 20:34 | CT Report ---
PROCEDURE: ABDOMEN/PELVIS W INDICATIONS: acute left groin pain; recent hematoma CONTRAST: 100ml omni 300 TECHNIQUE: After the administration of intravenous contrast, 5 mm thick sections acquired from the diaphragms to the symphysis. 5 mm thick coronal and sagittal reformats were acquired. For radiation dose reducti on, the following was used: automated exposure control, adjustment of mA and/or kV according to kathie ent size. COMPARISON: None. FINDINGS: Image quality: Excellent. Lung bases and heart: Basilar atelectasis. No hiatal hernia. Heart size is normal. Atherosclerotic ca lcifications of the LAD. Liver: No intrahepatic mass lesions identified. There appears to be grouped coarse calcifications ove r the liver dome, not definitively within the liver. This may represent subdiaphragmatic calcificatio ns. Gallbladder and biliary tree: No radiopaque stones or wall thickening. No biliary dilation. Spleen: No splenomegaly. Incidental splenule Pancreas: No pancreatic ductal dilation. Adrenals: No adrenal nodule. Kidneys and ureters: There are postsurgical changes in the right renal fossa. Status post right nephr ectomy. Left kidney appears normal in size without hydronephrosis. No hydroureter. Multiple renal hyp odensities are visualized and are consistent with renal cysts. No suspicious renal mass lesions seen. . Bowel and peritoneum: No bowel distension. No pathologic free fluid. Colonic diverticulosis without a cute diverticulitis. Lymph nodes: No central or retroperitoneal adenopathy. Vessels: No infrarenal aortic aneurysm. Scattered atherosclerotic calcifications. PELVIS Reproductive organs: Unremarkable. Bladder: No abnormal wall thickening, accounting for underdistension. Pelvic lymph nodes: No pelvic adenopathy by size criteria. Bones: No aggressive osseous abnormality. Postsurgical changes of prior left total hip arthroplasty. Prominent size of the left iliacus muscle, proximal to the arthroplasty hardware. Multilevel spondyl osis of the imaged spine most prominent in the mid to lower lumbar spine. No acute compression fractu res. Other: Small fat-containing umbilical hernia without acute inflammation. IMPRESSION: CT abdomen and pelvis without acute abnormalities. Status post left total hip arthroplasty with prominent size of the left iliacus muscle which may repr esent resolving intramuscular hematoma. Postsurgical changes of prior right nephrectomy. Colonic diverticulosis without acute diverticulitis. Multiple left renal hypodensities likely representing cysts. Other chronic findings as above Reviewed by: Adam Guaman MD on 08/15/2023 8:32 PM PST Approved by: Adam Guaman MD on 08/15/2023 8:32 PM PST Station ID: [id number]
[2023-08-15 20:36] LABS: BILIRUBIN,URINE NEGATIVE (NEGATIVE); CLARITY,URINE CLEAR (CLEAR); GLUCOSE, URINE (UA) NEGATIVE (NEGATIVE); KETONES,URINE (UA) NEGATIVE (NEGATIVE); LEUKOCYTE ESTERASE, URINE NEGATIVE (NEGATIVE); NITRITE,URINE NEGATIVE (NEGATIVE); OCCULT BLOOD,URINE NEGATIVE (NEGATIVE); PROTEIN,URINE NEGATIVE (NEGATIVE); UROBILINOGEN,URINE 0.2 (NORMAL) E.U./dL (NORMAL)
[2023-08-15] MEDS ORDERED: KETOROLAC 30 MG/ML VIAL IVP STA (21:04)
[2023-08-15 21:50] LABS: HCT - HEMATOCRIT 42.2 % (42.0-52.0); HGB - HEMOGLOBIN 13.8 g/dL (14.0-18.0); MEAN CORPUSCULAR HEMOGLOBIN 29.2 pg (27.0-31.0); MEAN CORPUSCULAR HGB CONC 32.7 g/dL (32.0-36.0); MEAN CORPUSCULAR VOLUME 89.2 fL (80.0-94.0); MEAN PLATELET VOLUME 9.3 fL (7.4-11.4); RED BLOOD COUNT 4.73 10^6/uL (4.70-6.10); RED CELL DISTRIBUTION WIDTH 13.2 % (12.0-15.0); WHITE BLOOD COUNT 11.6 x10^3/uL (4.8-10.8)
[2023-08-16] MEDS ORDERED: ONDANSETRON 4 MG/2 ML VIAL IVP STA ×2 (00:21→01:06)
[2023-08-16] MEDS ORDERED: HYDROmorphone 1 MG/ML CARPUJECT IVP STA (00:54)
[2023-08-16] MEDS ORDERED: METOCLOPRAMIDE 10 MG/2 ML VIAL IVP STA (01:48)
--- NOTE | 2023-08-16 02:07 | CT Report ---
PROCEDURE: PELVIS WO INDICATIONS: ? hematoma developing to Iliopsoas muscle TECHNIQUE: Noncontrast 3 mm axial sections acquired through the bony pelvis, with coronal and sagittal reformatt ing. For radiation dose reduction, the following was used: automated exposure control, adjustment of mA and/or kV according to patient size. COMPARISON: CT scan of abdomen/pelvis 08/15/2023 identifying a iliopsoas muscle region hematoma on th e left.. FINDINGS: Image quality: Excellent. Bones: No acute trauma found. Soft tissues: The previously identified acute or subacute hematoma that the iliopsoas muscle on the left is again seen. Definite interval enlargement is not found. There is stable appearance of a small left paramedian body wall ventral hernia of omental fat seen on series 2 image 18 showing no evidenc e of incarceration or strangulation. IMPRESSION: No definite interval enlargement of a previously identified left iliopsoas muscle region hematoma. Sm all left paramedian omental hernia again noted, showing no evidence of incarceration or strangulation . Reviewed by: Cesar Cha MD on 08/16/2023 2:06 AM PST Approved by: Cesar Cha MD on 08/16/2023 2:06 AM PST Station ID: [id number]
--- NOTE | 2023-08-16 03:14 | ED Physician Documentation ---
ED Addendum - Addendum Addendum: Assumed care of patient from GREGORIO Tinsley to follow-up on repeat CT scan. Patient presenting with symptoms similar to when he was admitted in June for an iliopsoas hematoma. At that time he was admitted to [facility] and had significant issues with pain control. He has already received multiple doses of pain medications prior to the onset of my assuming care. He reports that during prior hospitalization they did hold his Plavix for 3 days.Patient has required further doses of IV Dilaudid as well as medications to help with his nausea. 0246 - Discussed with radiologist, Dr. Guaman to obtain measurements of hematoma. He states that he has reviewed both CTs from today and does not see a significant difference in the size of the hematoma and estimates measurements of 8.1 cm x 4.6 cm x 7.2 cm. He does not have access to the [facility] [employer] system to evaluate their CT that was done in June. He agrees that it would most likely be helpful to reach back out to the surgery team at [facility] where the patient was previously admitted to they can compare images obtained today versus those in June when he was admitted. 08/16/23 06:16 - Significant delay in Obtaining a general surgery consult at [facility] as there were issues in pushing images forward to their facility that took several hours. I did speak with on-call general surgery chief resident who stated that at this time there does not appear to be anything to do other than symptomatic care but he would recommend admitting for further monitoring. He states that if there are signs that there is active extravasation over the next day then could consider IR embolization. As we do not have IR capabilities he agrees that patient would likely be better served at a facility that could handle complications and recommends transfer. He request that patient be admitted to the hospitalist service and that general surgery would then consult. Transfer center will reach out to the hospitalist service At [facility] and have them call us back. I have ordered for repeat labs for this morning. 06 - I did update the patient regarding the plan of care and he is agreeable. He was resting comfortably when I did recheck on him just now. 08/16/23 06:49 D/W Dr. Muhammad (Hospitalist at [facility]) - Accepts the patient for transfer. Patient to be signed out to day shift physician at shift change. Departure - Departure Disposition: 02 Transfer Acute Care Hosp Clinical Impression: Left inguinal pain, Iliopsoas muscle hematoma, Intractable pain, Chronic kidney disease Condition: Fair Forms: PCP List Discharge Date/Time: 08/16/23 15:53
[2023-08-16] MEDS ORDERED: HYDROmorphone 0.5 MG/0.5 ML SYRINGE IVP STA (04:09)
[2023-08-16] MEDS ORDERED: POTASSIUM BICARB 25 MEQ TABLET PO ONE (04:09)
[2023-08-16 07:02] LABS: BASOPHILS % (AUTO) 0.2 %; EOSINOPHILS # (AUTO) 0.1 10^3/uL (0.0-0.7); EOSINOPHILS % (AUTO) 0.4 %; HCT - HEMATOCRIT 42.4 % (42.0-52.0); HGB - HEMOGLOBIN 13.8 g/dL (14.0-18.0); LYMPHOCYTES # (AUTO) 1.8 10^3/uL (1.5-3.5); LYMPHOCYTES % (AUTO) 13.7 %; MEAN CORPUSCULAR HEMOGLOBIN 29.2 pg (27.0-31.0); MEAN CORPUSCULAR HGB CONC 32.5 g/dL (32.0-36.0); MEAN CORPUSCULAR VOLUME 89.6 fL (80.0-94.0); MEAN PLATELET VOLUME 9.4 fL (7.4-11.4); MONOCYTES # (AUTO) 1.4 10^3/uL (0.0-1.0); MONOCYTES % (AUTO) 10.6 %; NEUTROPHILS # (AUTO) 9.6 10^3/uL (1.5-6.6); NEUTROPHILS % (AUTO) 74.8 %; PLT - PLATELET COUNT 243 10^3/uL (130-450); RED BLOOD COUNT 4.73 10^6/uL (4.70-6.10); RED CELL DISTRIBUTION WIDTH 13.4 % (12.0-15.0); WHITE BLOOD COUNT 12.8 x10^3/uL (4.8-10.8)
[2023-08-16 07:27] LABS: CALCIUM 9.2 mg/dL (8.5-10.3); CREATININE 1.6 mg/dL (0.6-1.3); POTASSIUM 3.5 mmol/L (3.5-4.5)
[2023-08-16] MEDS: HYDROmorphone 0.5 MG/0.5 ML SYRINGE IVP PRN ×2 (08:05→15:21)
[2023-08-16 15:31] VITALS: BP 147/96; O2SAT 94
--- NOTE | 2023-08-16 17:48 | ED Physician Documentation ---
ED Addendum - Addendum Addendum: 08/16/23 17:46 The patient was signed out to me at change of shift by Dr. Alejandre, continuing to pend transfer to [facility] for inguinal so at iliopsoas hematoma of uncertain acuity. The patient has had issues with this hematoma in the past and the case ultimately on discussion with specialist at [facility], has been felt appropriate for transfer for potential interventional radiology procedure. The patient remained in the emergency department until mid afternoon when [facility] did inform us that they had a bed for the patient would accept him in transfer. The patient was stable at that point in time. He was transferred in stable condition and agreeable to transfer. Final impression: See original note Disposition: Transfer to [address] in serious but stable condition.
== END 2023-08-16 15:53 | disposition short-term general hospital (02) ==
LOC: EDUNIT# → ED 17:15
DX: R10.32 Left lower quadrant pain (principal); I12.9 Hypertensive chronic kidney disease with stage 1 through stage 4 chronic kidney disease, or unspecified chronic kidney disease; N18.9 Chronic kidney disease, unspecified; I25.10 Atherosclerotic heart disease of native coronary artery without angina pectoris; E78.00 Pure hypercholesterolemia, unspecified; Z79.899 Other long term (current) drug therapy; Z79.82 Long term (current) use of aspirin; Z79.51 Long term (current) use of inhaled steroids
CPT/HCPCS: 36415; 72192; 74177; 80048; 80053; 81003; 83690; 85025; 85027; 85610; 96374; 96375; 96376; 99285; A9270; J1170; J2765; Q9967; 81001; 87086

== ENCOUNTER 2023-12-04 07:00 | Outpatient (CLI) | payer MEDICARE, OTHER ==
--- NOTE | 2023-12-05 09:37 | XRAY Report ---
PROCEDURE: Foot 3+V LT INDICATIONS: LEFT FOOT PAIN TECHNIQUE: 3 views of the foot were acquired. COMPARISON: None. FINDINGS: Bones: No fractures or dislocations. No suspicious bony lesions. There is mild interphalangeal join t space narrowing and mild degenerative change of the midfoot. There is a small calcaneal spur. Soft tissues: No tibiotalar joint effusion. Achilles tendon appears normal. IMPRESSION: No acute bony abnormality. Mild degenerative change. Reviewed by: Urvashi Nagy MD on 12/05/2023 9:36 AM PDT Approved by: Urvashi Nagy MD on 12/05/2023 9:36 AM PDT Station ID: [id number]
== END 2023-12-04 07:01 | disposition home or self-care (01) ==
LOC: DI.S 07:00
PROVIDERS: ATTEND Emergency Medicine
DX: M19.072 Primary osteoarthritis, left ankle and foot (principal)

== ENCOUNTER 2023-12-08 07:35 | Outpatient (CLI) | payer MEDICARE, OTHER ==
--- NOTE | 2023-12-08 20:36 | XRAY Report ---
PROCEDURE: Foot 3 View LT INDICATIONS: LEFT FOOT PAIN TECHNIQUE: 3 views of the foot were obtained. COMPARISON: None FINDINGS: Bones: No fractures or dislocations. No suspicious bony lesions. There is flattening of the longitu dinal arch. The small calcaneal spur present Soft tissues: Unremarkable. No radiopaque foreign body. IMPRESSION: Pes planus Reviewed by: Mario Langston MD on 12/08/2023 7:35 PM AKDT Approved by: Mario Langston MD on 12/08/2023 7:35 PM AKDT Station ID: [id number]
== END 2023-12-08 23:59 | disposition home or self-care (01) ==
LOC: DI.WOS 07:35
PROVIDERS: ATTEND Orthopaedic Surgery
DX: M21.42 Flat foot [pes planus] (acquired), left foot (principal); M79.672 Pain in left foot

== ENCOUNTER 2024-01-05 10:09 | Outpatient (CLI) | payer MEDICARE, OTHER ==
--- NOTE | 2024-01-05 11:54 | XRAY Report ---
PROCEDURE: Foot 3+V LT (Weight Bearing) INDICATIONS: LEFT FOOT STRESS FRACTURE TECHNIQUE: 3 views of the foot were acquired. COMPARISON: Left foot radiograph on December 04, 2023. FINDINGS: Bones: No fractures or dislocations. No suspicious bony lesions. Tiny plantar calcaneal enthesophyt e. Soft tissues: No tibiotalar joint effusion. Achilles tendon appears normal. IMPRESSION: No acute bony abnormality. If clinical symptoms persist, consider MRI for further evaluation, particu larly a stress fracture. Reviewed by: Joao Taylor MD on 01/05/2024 11:53 AM PDT Approved by: Joao Taylor MD on 01/05/2024 11:53 AM PDT Station ID: [id number]
== END 2024-01-05 10:10 | disposition home or self-care (01) ==
LOC: DI 10:09
PROVIDERS: ATTEND Orthopaedic Surgery
DX: M84.375A Stress fracture, left foot, initial encounter for fracture (principal)

== ENCOUNTER 2024-03-11 21:25 | Inpatient (IN) | payer MEDICARE, OTHER ==
[2024-03-11] MEDS: ONDANSETRON 4 MG/2 ML VIAL IVP STA (21:42)
[2024-03-11] MEDS: HYDROmorphone 1 MG/ML CARPUJECT IVP STA (21:48)
[2024-03-11 21:58] LABS: BASOPHILS # (AUTO) 0.1 10^3/uL (0.0-0.1); BASOPHILS % (AUTO) 0.6 %; EOSINOPHILS # (AUTO) 0.1 10^3/uL (0.0-0.7); EOSINOPHILS % (AUTO) 1.2 %; HGB - HEMOGLOBIN 15.3 g/dL (14.0-18.0); LYMPHOCYTES # (AUTO) 2.9 10^3/uL (1.5-3.5); LYMPHOCYTES % (AUTO) 24.8 %; MEAN CORPUSCULAR HEMOGLOBIN 28.5 pg (27.0-31.0); MEAN CORPUSCULAR HGB CONC 32.6 g/dL (32.0-36.0); MEAN CORPUSCULAR VOLUME 87.7 fL (80.0-94.0); MEAN PLATELET VOLUME 9.4 fL (7.4-11.4); MONOCYTES # (AUTO) 1.3 10^3/uL (0.0-1.0); MONOCYTES % (AUTO) 11.6 %; NEUTROPHILS # (AUTO) 7.1 10^3/uL (1.5-6.6); NEUTROPHILS % (AUTO) 61.5 %; PLT - PLATELET COUNT 312 10^3/uL (130-450); RED BLOOD COUNT 5.36 10^6/uL (4.70-6.10); RED CELL DISTRIBUTION WIDTH 13.9 % (12.0-15.0); WHITE BLOOD COUNT 11.6 x10^3/uL (4.8-10.8)
--- NOTE | 2024-03-11 22:04 | ED Physician Documentation ---
History of Present Illness - Stated complaint Stated Complaint: L SIDE PX - Chief complaint Chief Complaint: Abd Pain - History obtained from History obtained from: Patient, Family - History of Present Illness Timing: Today - Additonal information Additional information: 68-year-old Archie Disla has a history of spontaneous iliopsoas muscle hematoma. He has had an episode in June of last year and in August of last year. The episode in August he spent some time at [facility] where he had intervention by the vascular surgery team and they were able to determine he did not have a AV malformation. Treatment was conservative and consisted of pain control and monitoring for blood loss. The patient had no significant progression of his symptoms was in the hospital for about 4 to 5 days. This evening he was in his chair went to stand up and had severe pain, again in the same spot. He presents to the emergency department with dramatic pain to the left groin. Review of Systems Constitutional: denies: Fever Eyes: denies: Decreased vision Ears: denies: Ear pain Nose: denies: Rhinorrhea / runny nose, Congestion Throat: denies: Sore throat Cardiac: denies: Chest pain / pressure, Palpitations Respiratory: denies: Dyspnea, Cough GI: denies: Abdominal Pain, Nausea, Vomiting, Constipation, Diarrhea : denies: Dysuria, Frequency Skin: denies: Rash Musculoskeletal: reports: Extremity pain (left groin). 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: Other (right nephrectomy ) Cardiovascular: Other Derm: Other - Present Medications Home Medications: Ambulatory Orders Medication Instructions Recorded Confirmed Montelukast [Singulair] 10 mg PO DAILY 01/26/16 08/16/23 Dextroamphetamine/Amphetamine 5 mg PO DAILY 06/07/19 08/16/23 [Adderall Xr 5 mg Capsule] Folic Acid 1 mg PO DAILY 06/07/19 08/16/23 Multivitamin [Multiple Vitamins] 1 each PO DAILY 06/07/19 08/16/23 [place]-3S/Dha/Epa/Fish Oil [Fish 1 each PO DAILY 06/07/19 08/16/23 Oil 1,000 mg Softgel] Testosterone Cypionate 200 mg IM ONCE 06/07/19 08/16/23 Zolpidem Tartrate [Ambien] 10 mg PO HS PRN 06/07/19 08/16/23 lamoTRIgine [Lamictal] 150 mg PO DAILY 06/07/19 08/16/23 Atorvastatin Calcium [Lipitor] 80 mg PO HS 08/16/23 08/16/23 Azithromycin 250 mg PO DAILY 08/16/23 08/16/23 Chlorthalidone 25 mg PO DAILY 08/16/23 08/16/23 Ciclesonide [Alvesco] 2 puffs INH BID 08/16/23 08/16/23 Clopidogrel [Plavix] 75 mg PO DAILY 08/16/23 08/16/23 Ipratropium/Albuterol [Combivent 2 puffs INH Q6HR PRN 08/16/23 08/16/23 Respimat] Ipratropium/Albuterol [Duoneb] 3 ml INH Q6H PRN 08/16/23 08/16/23 Mepolizumab [Nucala] 100 mg SQ ONCE 08/16/23 08/16/23 Pantoprazole [Protonix] 40 mg PO BID 08/16/23 08/16/23 Salmeterol Xinafoate [Serevent 1 puffs INH BID 08/16/23 08/16/23 Diskus] Valsartan [Diovan] 40 mg PO QPM 08/16/23 08/16/23 Valsartan [Diovan] 80 mg PO DAILY 08/16/23 08/16/23 captopriL [Capoten] 12.5 mg PO TID 08/16/23 08/16/23 carvediloL [Coreg] 12.5 mg PO QPM 08/16/23 08/16/23 carvediloL [Coreg] 18.75 mg PO DAILY 08/16/23 08/16/23 - Allergies Allergies/Adverse Reactions: Allergies Allergy/AdvReac Type Severity Reaction Status Date / Time aripiprazole Allergy Respiratory Verified 03/11/24 21:47 - Social History Does the pt smoke?: No Smoking Status: Never smoker Does the pt drink ETOH?: Yes Does the pt have substance abuse?: No - Immunizations Immunizations are current?: Yes - POLST Patient has POLST: No PD ED PE NORMAL - Vitals Vital signs reviewed: Yes (hypertensive ) - General General: Alert and oriented X 3, Well developed/nourished, Other (dramatic pain behavior with pain worse with movement or palpation in the left groin ) - HEENT HEENT: Atraumatic, PERRL, EOMI - Neck Neck: Supple, no meningeal sign, No bony TTP - Cardiac Cardiac: RRR, No murmur - Respiratory Respiratory: No respiratory distress, Clear bilaterally - Abdomen Abdomen: Soft, Non tender - Back Back: No CVA TTP, No spinal TTP - Derm Derm: Normal color, Warm and dry, No rash - Extremities Extremities: No deformity, No edema, Other (There is tenderness to the left groin at the inguinal canal there is not a palpable mass. ) - Neuro Neuro: Alert and oriented X 3, election supervisor 2-12 intact, No motor deficit, No sensory deficit, Normal speech Eye Opening: Spontaneous Motor: Obeys Commands Verbal: Oriented GCS Score: 15 - Psych Psych: Other (Mood is painful and the affect is labile) Results - Vitals Vitals: Vital Signs - 24 hr 03/11/24 03/12/24 03/12/24 21:38 00:16 02:00 Temperature 36.7 C Heart Rate 62 42 L 52 L Respiratory 23 18 14 Rate Blood Pressure 149/92 H 126/84 H 96/54 L O2 Saturation 95 94 92 If not protocol : Oxygen Flow, liters/minute 03/12/24 04:00 Temperature Heart Rate 49 L Respiratory 16 Rate Blood Pressure 105/60 O2 Saturation 95 If not protocol 2 : Oxygen Flow, liters/minute Oxygen O2 Source Nasal cannula - EKG (time done) 22:13 EKG releavant findings:: EKG personally interpreted by author of this note. Relevant findings are: Rate: Rate (enter#) (48) Rhythm: Sinus bradycardia [place]: Anterior hemiblock Intervals: RBBB Compare to prior EKG: Changed from prior EKG (SPT 02/07/23 rate is slower LVH has resolved) Computer interpretation: Agree with computer - Labs Labs: Laboratory Tests 03/11/24 03/11/24 03/11/24 20:06 21:50 21:50 WBC 11.6 H RBC 5.36 Hgb 15.3 Hct 47.0 MCV 87.7 MCH 28.5 MCHC 32.6 RDW 13.9 Plt Count 312 MPV 9.4 Neut # (Auto) 7.1 H Lymph # (Auto) 2.9 [place] # (Auto) 1.3 H Eos # (Auto) 0.1 Baso # (Auto) 0.1 Absolute Nucleated RBC 0.00 Nucleated RBC % 0.0 PT 12.1 INR 1.1 APTT 30.1 Sodium Potassium Chloride Carbon Dioxide Anion Gap BUN Creatinine Estimated GFR (MDRD) Glucose Calcium Total Bilirubin AST ALT Alkaline Phosphatase Total Protein Albumin Globulin Albumin/Globulin Ratio Lipase Blood Type Blood Type Recheck O POSITIVE Antibody Screen 03/11/24 03/11/24 21:50 21:50 WBC RBC Hgb Hct MCV MCH MCHC RDW Plt Count MPV Neut # (Auto) Lymph # (Auto) [place] # (Auto) Eos # (Auto) Baso # (Auto) Absolute Nucleated RBC Nucleated RBC % PT INR APTT Sodium 137 Potassium 3.7 Chloride 105 Carbon Dioxide 23 Anion Gap 9.0 BUN 34 H Creatinine 1.8 H Estimated GFR (MDRD) 38 L Glucose 82 Calcium 9.4 Total Bilirubin 0.5 AST 12 ALT 14 Alkaline Phosphatase 70 Total Protein 7.1 Albumin 4.1 Globulin 3.0 Albumin/Globulin Ratio 1.4 Lipase 56 Blood Type O POSITIVE Blood Type Recheck Antibody Screen NEGATIVE - Rads (name of study) CT ab pel with Relevant Findings:: Prelim report reviewed (Impression: 1. Prior left total hip arthroplasty with prominent size in the left iliac us muscle and iliopsoas muscle suggestive of intermittent muscular hematoma not significantly changed from prior study.), EMP independent interpretation of test, See rad report PD Medical Decision Making - ED course Complexity details: reviewed old records, reviewed results, re-evaluated patient, considered differential, d/w patient, d/w family, d/w web consultant (Gil Melendez 00:35 vascular surgery recommends transfer as previously they were not able to determine specifics of hematoma and want to potentially place a coil. After contact with [facility] for transfer the vascular surgeon Dr. Patrice Card makeup sales consultant at [facility] rec conservative management at 01:52) Reviewed Lab Results: CT ab/pel with Impression: 1. Prior left total hip arthroplasty with prominent size in the left iliac us muscle and iliopsoas muscle suggestive of intermittent muscular hematoma not significantly changed from prior study. 2. Prior right nephrectomy. Multiple left renal cyst. No left-sided hydronephrosis or solid appearing renal lesion. 3. No bowel obstruction or abnormal bowel wall thickening. Mild constipation. No free fluid or free air. 4. Colonic diverticulosis without CT evidence of acute diverticulitis. 5. Chronic right diaphragmatic hernia with superior herniation of the right hepatic dome and adjacent right basilar atelectasis. This is unchanged from prior studies. ED course: 68 year old male with a history of spontaneous iliopsoas hematoma presents with traumatic pain behavior which is distracting. He is administered Dilaudid 2 mg intravenously and 4 mg of Zofran as well as tranexemic acid. He has some improvement in his pain with this and is able to give additional history. The patient and his were able to provide the name of a vascular surgeon and I was able to consult with Gil Melendez who indicated she thought it would be reasonable to transfer the patient for further care to [facility]. The vascular surgeon at [facility] Dr. Patrice Card recommends conservative treatment with pain control and following serial hematocrits. Since this can be done here he recommends admission here for conservative/supportive care. Dr Ciro patel will admit. Departure - Departure Disposition: 66 [facility] DC/Xfer Clinical Impression: Hematoma of left iliopsoas muscle Qualifiers: Encounter type: initial encounter Qualified Code(s): S70.12XA - Contusion of left thigh, initial encounter Discharge Date/Time: 03/12/24 05:41
[2024-03-11 22:08] LABS: PARTIAL THROMBOPLASTIN TIME 30.1 secs (24.9-33.3)
[2024-03-11 22:12] LABS: INR 1.1 (0.8-1.2); PT - PROTHROMBIN TIME 12.1 secs (9.9-12.6)
[2024-03-11] MEDS ORDERED: iohexoL-300 100 ML VIAL ONE (22:13)
[2024-03-11 22:19] LABS: ALBUMIN 4.1 g/dL (3.2-5.5); ALBUMIN/GLOBULIN RATIO 1.4 (1.0-2.2); BILIRUBIN,TOTAL 0.5 mg/dL (0.2-1.0); CALCIUM 9.4 mg/dL (8.5-10.3); CREATININE 1.8 mg/dL (0.6-1.3); POTASSIUM 3.7 mmol/L (3.5-4.5); TOTAL PROTEIN 7.1 g/dL (6.4-8.9)
[2024-03-11] MEDS ORDERED: TRANEXAMIC ACID 1,000 MG/10 ML VIAL ONE (22:25)
[2024-03-11] MEDS: TRANEXAMIC ACID 1,000 MG in SODIUM CHLORIDE 0.9% 100ML 100 ML IV STA (23:04)
[2024-03-11] MEDS: iohexoL-300 100 ML VIAL IVP ONE (23:16)
--- NOTE | 2024-03-11 23:40 | CT Report ---
PROCEDURE: Abdomen/Pelvis W INDICATIONS: hx of spontaneous illiopsoas hematoma CONTRAST: 100 ML OMNI 300 TECHNIQUE: After the administration of intravenous contrast, a CT scan of the abdomen and pelvis was performed. Images were recorded and evaluated at appropriate window settings. Reformats: coronal and sagittal. F or radiation dose reduction, the following was used: automated exposure control, adjustment of mA and /or kV according to patient size. COMPARISON: 08/15/2023. FINDINGS: Image quality: Diagnostic. Lower chest: Right diaphragmatic hernia is seen with superior herniation of the right hepatic dome an d adjacent right basilar atelectasis. Heart size is enlarged, no pericardial effusion. Liver: No solid mass. Gallbladder: No radiopaque stones or wall thickening. Biliary tree: No intrahepatic or extrahepatic dilation, accounting for age. Spleen: No splenomegaly. Pancreas: No pancreatic ductal dilation. Adrenals: No adrenal nodule. Kidneys and ureters: There is prior right nephrectomy. Left kidney is normal in size. Multiple simple appearing left renal cysts are again seen unchanged from prior study. No hydronephrosis. No renal cy stic lesion which requires follow up. No solid mass. Stomach, bowel and peritoneum: No gastric or small bowel dilation. No abnormal wall thickening. No pa thologic free fluid. No peritoneal free air. Fecal stasis throughout the colon is seen. Sigmoid diver ticulosis without CT evidence of acute diverticulitis. Lymph nodes: No central or retroperitoneal adenopathy. Vessels: No infrarenal aortic aneurysm. Patent portal vein. PELVIS Reproductive organs: Unremarkable. Bladder: No abnormal wall thickening, accounting for underdistention. Pelvic lymph nodes: No pelvic adenopathy by size criteria. Bones: No aggressive osseous abnormality. Patient is status post left total hip arthroplasty unchange d from prior study. No gross hardware loosening or failure. Other: No significant ventral or inguinal hernia. Asymmetrically enlarged left iliacus muscle is agai n seen with ill-defined internal hyperdensity extending to involve the proximal left iliopsoas muscle anterior to the left hip prosthesis. Overall size of the muscles are no significantly changed from 2 023 study. IMPRESSION: 1. Prior left total hip arthroplasty with prominent in size of left iliacus muscle and iliopsoas musc le suggestive of intramuscular hematoma not significantly changed from prior study. 2. Prior right nephrectomy. Multiple left renal cysts. No left-sided hydronephrosis or solid appearin g renal lesion. 3. No bowel obstruction or abnormal bowel wall thickening. Mild constipation. No free fluid of free a ir. 4. Colonic diverticulosis without CT evidence of acute diverticulitis. 5. Chronic right diaphragmatic hernia with superior herniation of the right hepatic dome and adjacent right basilar atelectasis. This is unchanged from prior studies. Reviewed by: Karlos Corea MD on 03/11/2024 11:39 PM PDT Approved by: Karlos Corea MD on 03/11/2024 11:39 PM PDT Station ID: [id number]
[2024-03-11] MEDS ORDERED: PROMETHAZINE 25 MG/1 ML VIAL ONE (23:54)
[2024-03-12] MEDS: PROMETHAZINE INJ 25 MG in SODIUM CHLORIDE 0.9% 50 ML IV STA (00:10)
[2024-03-12] MEDS ORDERED: HYDROmorphone 1 MG/ML CARPUJECT ONE (03:36)
[2024-03-12] MEDS: HYDROmorphone 1 MG/ML CARPUJECT IVP STA (03:40)
[2024-03-12] MEDS ORDERED: ACETAMINOPHEN 325 MG TABLET PO PRN (04:42)
--- NOTE | 2024-03-12 04:51 | HISTORY & PHYSICAL EXAMINATION ---
Chief Complaint - Chief Complaint Chief Complaint: left groin pain History of Present Illness - History of Present Illness HPI Comment/Other: 68 y old male with PMH HTN, hyperlipidmia, COPD, Recurrent ilio-psoas hematoma presented to ER due to sudden onset left groin pain since last night. Denies injury or fall, chest pain, SOB, Fever, nausea, vomiting, diarrhea, constipation, symptoms Pt is on plavix Labs showed leukocytosis, Cytotechnologist/Histotechnologist 1.8 CT abdomen/pelvis showed left ilio-psoas hematoma As per ER physician, he consulted with vasculat surgeon at [facility], Dr Patrice Marcos who recommended conservative management, pain control and monitor H/H Pt is admitted due to left groin pain due to left ilio-psoas hematoma History - Past Medical History Cardiovascular: reports: Hypertension, High cholesterol, Other Respiratory: reports: Asthma, Other Endocrine/Autoimmune: reports: None GI: reports: None : reports: Benign prostate hypertrophy Psych: reports: Post traumatic stress disorder Musculoskeletal: reports: None Derm: reports: Rosacea MRSA Hx?: No - Past Surgical History General: reports: Other Ortho: reports: Other /BOX ORDER PERSON: reports: Other (right nephrectomy ) Cardiovascular: reports: Other Derm: reports: Other - Family & Social History Family History Comment/Other: His father from [place] in his 50's. His mother had breast cancer and dementia. His sisters also had breast cancer. Social History Notes: He lives on [address] with his . 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 He used to smoke three packs of cigarettes a day but quite 20 years ago after smoking for 15 years. He drinks alcohol occasionally. - Substance History Use: Uses substance without health or social issues: NONE - POLST Patient has POLST: No Meds/Allgy - Home Medications Home Medications: Ambulatory Orders Medication Instructions Recorded Confirmed Montelukast [Singulair] 10 mg PO DAILY 01/26/16 08/16/23 Dextroamphetamine/Amphetamine 5 mg PO DAILY 06/07/19 08/16/23 [Adderall Xr 5 mg Capsule] Folic Acid 1 mg PO DAILY 06/07/19 08/16/23 Multivitamin [Multiple Vitamins] 1 each PO DAILY 06/07/19 08/16/23 [place]-3S/Dha/Epa/Fish Oil [Fish 1 each PO DAILY 06/07/19 08/16/23 Oil 1,000 mg Softgel] Testosterone Cypionate 200 mg IM ONCE 06/07/19 08/16/23 Zolpidem Tartrate [Ambien] 10 mg PO HS PRN 06/07/19 08/16/23 lamoTRIgine [Lamictal] 150 mg PO DAILY 06/07/19 08/16/23 Atorvastatin Calcium [Lipitor] 80 mg PO HS 08/16/23 08/16/23 Azithromycin 250 mg PO DAILY 08/16/23 08/16/23 Chlorthalidone 25 mg PO DAILY 08/16/23 08/16/23 Ciclesonide [Alvesco] 2 puffs INH BID 08/16/23 08/16/23 Clopidogrel [Plavix] 75 mg PO DAILY 08/16/23 08/16/23 Ipratropium/Albuterol [Combivent 2 puffs INH Q6HR PRN 08/16/23 08/16/23 Respimat] Ipratropium/Albuterol [Duoneb] 3 ml INH Q6H PRN 08/16/23 08/16/23 Mepolizumab [Nucala] 100 mg SQ ONCE 08/16/23 08/16/23 Pantoprazole [Protonix] 40 mg PO BID 08/16/23 08/16/23 Salmeterol Xinafoate [Serevent 1 puffs INH BID 08/16/23 08/16/23 Diskus] Valsartan [Diovan] 40 mg PO QPM 08/16/23 08/16/23 Valsartan [Diovan] 80 mg PO DAILY 08/16/23 08/16/23 captopriL [Capoten] 12.5 mg PO TID 08/16/23 08/16/23 carvediloL [Coreg] 12.5 mg PO QPM 08/16/23 08/16/23 carvediloL [Coreg] 18.75 mg PO DAILY 08/16/23 08/16/23 - Allergies Allergies/Adverse Reactions: Allergies Allergy/AdvReac Type Severity Reaction Status Date / Time aripiprazole Allergy Respiratory Verified 03/11/24 21:47 Review of Systems - Other Findings Other Findings: 10 points systems were reviewed and were negative except mentioned in HPI Exam - Vital Signs Vital Signs: Vital Signs x48h Temp Pulse Resp BP Pulse Ox O2 Flow Rate 03/12/24 04:00 49 L 16 105/60 95 2 03/12/24 02:00 52 L 14 96/54 L 92 03/12/24 00:16 42 L 18 126/84 H 94 03/11/24 21:38 36.7 C 62 23 149/92 H 95 - Physical Exam General Appearance: positive: No acute distress Eyes Bilateral: positive: Normal inspection ENT: positive: ENT inspection nml Neck: positive: Nml inspection Respiratory: positive: Chest non-tender Cardiovascular: positive: Regular rate & rhythm Abdomen: positive: Non-tender, Nml bowel sounds Skin: positive: Color nml, No rash Extremities: positive: No pedal edema Neurologic/Psychiatric: positive: Oriented x3, Motor nml Conclusion/Plan - Lab Results Fish Bones: 03/11/24 21:50 03/11/24 21:50 - Other Other Results/Comments: A: Ledt ilio-psoas hematoma Ledt groin pain Leukocytosis GERALDINE HTN Hyperlipidemia COPD Plan; Admit to med surg with tele Pain control Monitor H/H As per ER physician, He consulted vascular surgeon at [facility] who recommended conservative managemnet Start NS @ 100 cc/h Repeat CBC, CMP Monitor i/o, electrolytes Hold plavix Cont lipitor Hold anti hypertensive due to hypotension Supportive care DVT prophylaxic: SCD Full code Pt is admitted as inpatient as more than 2 midnight stay is expected
[2024-03-12] MEDS ORDERED: FLUCONAZOLE 100 MG TABLET PO SCH (06:00)
[2024-03-12] MEDS: HYDROcod/ACETAM 10 MG/325 MG TABLET PO PRN (06:17)
[2024-03-12] MEDS: SODIUM CHLORIDE 0.9% 1,000 ML IV SCH (06:17)
[2024-03-12] MEDS: SODIUM CHLORIDE FLUSH 0.9% 10 ML SYRINGE IVP PRN (06:18)
[2024-03-12 08:15] LABS: BASOPHILS # (AUTO) 0.1 10^3/uL (0.0-0.1); BASOPHILS % (AUTO) 0.5 %; EOSINOPHILS # (AUTO) 0.1 10^3/uL (0.0-0.7); EOSINOPHILS % (AUTO) 0.8 %; HCT - HEMATOCRIT 46.9 % (42.0-52.0); HGB - HEMOGLOBIN 14.9 g/dL (14.0-18.0); LYMPHOCYTES # (AUTO) 2.2 10^3/uL (1.5-3.5); LYMPHOCYTES % (AUTO) 17.7 %; MEAN CORPUSCULAR HEMOGLOBIN 28.2 pg (27.0-31.0); MEAN CORPUSCULAR HGB CONC 31.8 g/dL (32.0-36.0); MEAN CORPUSCULAR VOLUME 88.8 fL (80.0-94.0); MEAN PLATELET VOLUME 9.1 fL (7.4-11.4); MONOCYTES # (AUTO) 1.4 10^3/uL (0.0-1.0); MONOCYTES % (AUTO) 11.2 %; NEUTROPHILS # (AUTO) 8.7 10^3/uL (1.5-6.6); NEUTROPHILS % (AUTO) 69.5 %; PLT - PLATELET COUNT 299 10^3/uL (130-450); RED BLOOD COUNT 5.28 10^6/uL (4.70-6.10); RED CELL DISTRIBUTION WIDTH 14.1 % (12.0-15.0); WHITE BLOOD COUNT 12.5 x10^3/uL (4.8-10.8)
[2024-03-12 08:26] LABS: ALBUMIN 3.9 g/dL (3.2-5.5); ALBUMIN/GLOBULIN RATIO 1.4 (1.0-2.2); BILIRUBIN,TOTAL 0.5 mg/dL (0.2-1.0); CALCIUM 9.1 mg/dL (8.5-10.3); CREATININE 1.8 mg/dL (0.6-1.3); POTASSIUM 4.1 mmol/L (3.5-4.5); TOTAL PROTEIN 6.7 g/dL (6.4-8.9)
[2024-03-12] MEDS: SODIUM CHLORIDE FLUSH 0.9% 10 ML SYRINGE IVP SCH (10:14)
[2024-03-12] MEDS: HYDROmorphone 1 MG/ML CARPUJECT IVP PRN (11:00)
--- NOTE | 2024-03-12 12:30 | PROVIDER PROGRESS NOTE ---
Subjective - Prog Note Date Prog Note Date: 03/12/24 Prog Note Time: 12:30 - Subjective Pt reports feeling: No change Subjective: The patient is a 68-year-old male with an extensive past medical history. He has a history of malignant melanoma of the left upper arm and the right forearm. 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 In addition he has known coronary artery disease with a stent placed to the LAD in 2021. He has had a history of severe GI bleeds with endoclips in place. He has baroreflex instability with volatile blood pressures that range from being significantly high to severe hypotension. He also has a history of eosinophilic asthma and tracheomalacia. Most recently he has had issues with spontaneous left iliopsoas hematomas. He has been followed by vascular surgery as an outpatient and he had an angiogram that did not reveal any AVMs. The patient presented to the emergency room with severe pain in the left groin reminiscent of his previous iliopsoas hematomas. The ER physician consulted with vascular surgery at [facility]. Dr. Naveed Marcos recommended conservative management and pain control and close monitoring of his H&H's. Today when I went to see the patient he is resting in the bed. He still is having quite a bit of pain at this point. He had been taking Plavix for his coronary artery disease but says that he understands that likely he is not going to be able to do this going forward. His Plavix has been held. Today he denies fever or shaking chills. No chest pain or heart palpitations. No nausea vomiting or diarrhea. No urinary complaints. Just continued severe pain in his left groin. Objective - Vital Signs/Intake & Output Vital Signs: Vital Signs x48h Temp Pulse Resp BP Pulse Ox O2 Flow Rate 03/12/24 07:49 37.0 C 48 L 18 126/68 96 03/12/24 05:45 36.7 C 65 16 145/87 H 95 03/12/24 05:41 2 Intake & Output: Intake & Output 03/09/24 03/10/24 03/11/24 03/12/24 23:59 23:59 23:59 23:59 Intake Total 110 51 Output Total 700 Balance 110 -649 - Lab Results Fish Bones: 03/12/24 08:10 03/12/24 08:10 Other Labs: Lab Results x24hrs 03/12/24 03/12/24 03/11/24 Range/Units 08:10 08:10 21:50 WBC 12.5 H (4.8-10.8) x10^3/uL RBC 5.28 (4.70-6.10) 10^6/uL Hgb 14.9 (14.0-18.0) g/dL Hct 46.9 (42.0-52.0) % MCV 88.8 (80.0-94.0) fL MCH 28.2 (27.0-31.0) pg MCHC 31.8 L (32.0-36.0) g/dL RDW 14.1 (12.0-15.0) % Plt Count 299 (130-450) 10^3/uL MPV 9.1 (7.4-11.4) fL Neut # (Auto) 8.7 H (1.5-6.6) 10^3/uL Lymph # (Auto) 2.2 (1.5-3.5) 10^3/uL [place] # (Auto) 1.4 H (0.0-1.0) 10^3/uL Eos # (Auto) 0.1 (0.0-0.7) 10^3/uL Baso # (Auto) 0.1 (0.0-0.1) 10^3/uL Absolute Nucleated RBC 0.00 x10^3/uL Nucleated RBC % 0.0 /100WBC PT (9.9-12.6) secs INR (0.8-1.2) APTT (24.9-33.3) secs Sodium 137 (135-145) mmol/L Potassium 4.1 (3.5-4.5) mmol/L Chloride 104 (101-111) mmol/L Carbon Dioxide 27 (21-32) mmol/L Anion Gap 6.0 (6-13) BUN 35 H (6-20) mg/dL Creatinine 1.8 H (0.6-1.3) mg/dL Estimated GFR (MDRD) 38 L (>89) Glucose 101 (74-104) mg/dL Calcium 9.1 (8.5-10.3) mg/dL Total Bilirubin 0.5 (0.2-1.0) mg/dL AST 12 (10-42) IU/L ALT 13 (10-60) IU/L Alkaline Phosphatase 68 (42-121) IU/L Total Protein 6.7 (6.4-8.9) g/dL Albumin 3.9 (3.2-5.5) g/dL Globulin 2.8 (2.1-4.2) g/dL Albumin/Globulin Ratio 1.4 (1.0-2.2) Lipase (11-82) U/L Blood Type O POSITIVE Blood Type Recheck Antibody Screen NEGATIVE 03/11/24 03/11/24 03/11/24 Range/Units 21:50 21:50 21:50 WBC 11.6 H (4.8-10.8) x10^3/uL RBC 5.36 (4.70-6.10) 10^6/uL Hgb 15.3 (14.0-18.0) g/dL Hct 47.0 (42.0-52.0) % MCV 87.7 (80.0-94.0) fL MCH 28.5 (27.0-31.0) pg MCHC 32.6 (32.0-36.0) g/dL RDW 13.9 (12.0-15.0) % Plt Count 312 (130-450) 10^3/uL MPV 9.4 (7.4-11.4) fL Neut # (Auto) 7.1 H (1.5-6.6) 10^3/uL Lymph # (Auto) 2.9 (1.5-3.5) 10^3/uL [place] # (Auto) 1.3 H (0.0-1.0) 10^3/uL Eos # (Auto) 0.1 (0.0-0.7) 10^3/uL Baso # (Auto) 0.1 (0.0-0.1) 10^3/uL Absolute Nucleated RBC 0.00 x10^3/uL Nucleated RBC % 0.0 /100WBC PT 12.1 (9.9-12.6) secs INR 1.1 (0.8-1.2) APTT 30.1 (24.9-33.3) secs Sodium 137 (135-145) mmol/L Potassium 3.7 (3.5-4.5) mmol/L Chloride 105 (101-111) mmol/L Carbon Dioxide 23 (21-32) mmol/L Anion Gap 9.0 (6-13) BUN 34 H (6-20) mg/dL Creatinine 1.8 H (0.6-1.3) mg/dL Estimated GFR (MDRD) 38 L (>89) Glucose 82 (74-104) mg/dL Calcium 9.4 (8.5-10.3) mg/dL Total Bilirubin 0.5 (0.2-1.0) mg/dL AST 12 (10-42) IU/L ALT 14 (10-60) IU/L Alkaline Phosphatase 70 (42-121) IU/L Total Protein 7.1 (6.4-8.9) g/dL Albumin 4.1 (3.2-5.5) g/dL Globulin 3.0 (2.1-4.2) g/dL Albumin/Globulin Ratio 1.4 (1.0-2.2) Lipase 56 (11-82) U/L Blood Type Blood Type Recheck Antibody Screen 03/11/24 Range/Units 20:06 WBC (4.8-10.8) x10^3/uL RBC (4.70-6.10) 10^6/uL Hgb (14.0-18.0) g/dL Hct (42.0-52.0) % MCV (80.0-94.0) fL MCH (27.0-31.0) pg MCHC (32.0-36.0) g/dL RDW (12.0-15.0) % Plt Count (130-450) 10^3/uL MPV (7.4-11.4) fL Neut # (Auto) (1.5-6.6) 10^3/uL Lymph # (Auto) (1.5-3.5) 10^3/uL [place] # (Auto) (0.0-1.0) 10^3/uL Eos # (Auto) (0.0-0.7) 10^3/uL Baso # (Auto) (0.0-0.1) 10^3/uL Absolute Nucleated RBC x10^3/uL Nucleated RBC % /100WBC PT (9.9-12.6) secs INR (0.8-1.2) APTT (24.9-33.3) secs Sodium (135-145) mmol/L Potassium (3.5-4.5) mmol/L Chloride (101-111) mmol/L Carbon Dioxide (21-32) mmol/L Anion Gap (6-13) BUN (6-20) mg/dL Creatinine (0.6-1.3) mg/dL Estimated GFR (MDRD) (>89) Glucose (74-104) mg/dL Calcium (8.5-10.3) mg/dL Total Bilirubin (0.2-1.0) mg/dL AST (10-42) IU/L ALT (10-60) IU/L Alkaline Phosphatase (42-121) IU/L Total Protein (6.4-8.9) g/dL Albumin (3.2-5.5) g/dL Globulin (2.1-4.2) g/dL Albumin/Globulin Ratio (1.0-2.2) Lipase (11-82) U/L Blood Type Blood Type Recheck O POSITIVE Antibody Screen
--- NOTE | 2024-03-12 12:44 | PROVIDER PROGRESS NOTE ---
Subjective - Prog Note Date Prog Note Date: 03/12/24 Prog Note Time: 12:50 - Subjective Subjective: The patient is a very pleasant 68-year-old gentleman with an extensive past medical history. He has a history of malignant melanoma on the left upper arm and right forearm. 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 He has known coronary artery disease with a stent to the LAD. He has [place] reflex instability diagnosed at the [facility]. He has severe blood pressure swings with severe hypertension and then severe hypotension. He has a history of severe GI bleeds x 2 and he has had endoclips in place. He also has eosinophilic asthma and tracheomalacia. More recently the patient has had issues with spontaneous left iliopsoas hematomas. He has been hospitalized with this in the past. He follows with vascular surgery as an outpatient and has had an angiogram. No active bleeding or AVMs were noted. The patient presented to the emergency room with severe left groin pain reminiscent of his previous iliopsoas hematomas. CT scan of the abdomen and pelvis revealed prominent size of the left iliopsoas muscle suggestive of intramuscular hematoma not significantly changed from prior studies. He has an ill-defined internal hyperdensity extending to involve the proximal left iliopsoas muscle anterior to the left hip prosthesis. The emergency room physician consulted vascular surgery at [facility] and Dr. Naveed Marcos recommended conservative management with pain control and close monitoring of his H&H. Today the patient really is not feeling any better. He still having significant pain. His hemoglobin dropped from 15.3-14.9 but overall is stable. He denies fever or shaking chills. No chest pain or heart palpitations. No nausea vomiting or diarrhea. No urinary complaints. He has continued severe left groin pain. Current Medications - Current Medications Current Medications: Acetaminophen 650 mg p.o. every 4 hours as needed [place] 10/325 mg 1 p.o. every 4 hours as needed for pain Lipitor 80 mg daily Zithromax 250 mg daily Carvedilol 6.25 mg p.o. in the morning and 12.5 mg in the evening Folic acid 5 mg daily Dilaudid 1 mg every 3 hours as needed severe pain Singulair 10 mg daily Ambien 5 mg p.o. nightly as needed Adderall 5 mg daily Lamictal 150 mg daily Captopril 12.5 mg p.o. 3 times daily Alvesco 2 puffs inhalation twice daily Serevent 1 puff inhalation twice daily Diovan 40 mg p.o. nightly Chlorthalidone 50 mg p.o. daily Multivitamin daily [place]-3 fish oil 1 p.o. daily Valsartan 80 mg in the morning and 40 mg midday Ondansetron 4 mg IV every 6 hours as needed nausea Protonix 40 mg daily Objective - Vital Signs/Intake & Output Reviewed Vital Signs: Yes Vital Signs: Vital Signs x48h Temp Pulse Resp BP Pulse Ox O2 Flow Rate 03/12/24 07:49 37.0 C 48 L 18 126/68 96 03/12/24 05:45 36.7 C 65 16 145/87 H 95 03/12/24 05:41 2 Intake & Output: Intake & Output 03/09/24 03/10/24 03/11/24 03/12/24 23:59 23:59 23:59 23:59 Intake Total 110 51 Output Total 700 Balance 110 -649 - Objective General Appearance: positive: No acute distress Eyes Bilateral: positive: Normal inspection ENT: positive: ENT inspection nml Neck: positive: Nml inspection Respiratory: positive: Chest non-tender Cardiovascular: positive: Regular rate & rhythm, No murmur, No gallop. negative: Friction rub Abdomen: positive: Non-tender, No organomegaly, Nml bowel sounds Skin: positive: Color nml, No rash, Warm, Dry Extremities: positive: Non-tender, Full ROM Neurologic/Psychiatric: positive: Oriented x3, CN's nml (2-12) - Lab Results Fish Bones: 03/12/24 08:10 03/12/24 08:10 Other Labs: Lab Results x24hrs 03/12/24 03/12/24 03/11/24 Range/Units 08:10 08:10 21:50 WBC 12.5 H (4.8-10.8) x10^3/uL RBC 5.28 (4.70-6.10) 10^6/uL Hgb 14.9 (14.0-18.0) g/dL Hct 46.9 (42.0-52.0) % MCV 88.8 (80.0-94.0) fL MCH 28.2 (27.0-31.0) pg MCHC 31.8 L (32.0-36.0) g/dL RDW 14.1 (12.0-15.0) % Plt Count 299 (130-450) 10^3/uL MPV 9.1 (7.4-11.4) fL Neut # (Auto) 8.7 H (1.5-6.6) 10^3/uL Lymph # (Auto) 2.2 (1.5-3.5) 10^3/uL Anderson # (Auto) 1.4 H (0.0-1.0) 10^3/uL Eos # (Auto) 0.1 (0.0-0.7) 10^3/uL Baso # (Auto) 0.1 (0.0-0.1) 10^3/uL Absolute Nucleated RBC 0.00 x10^3/uL Nucleated RBC % 0.0 /100WBC PT (9.9-12.6) secs INR (0.8-1.2) APTT (24.9-33.3) secs Sodium 137 (135-145) mmol/L Potassium 4.1 (3.5-4.5) mmol/L Chloride 104 (101-111) mmol/L Carbon Dioxide 27 (21-32) mmol/L Anion Gap 6.0 (6-13) BUN 35 H (6-20) mg/dL Creatinine 1.8 H (0.6-1.3) mg/dL Estimated GFR (MDRD) 38 L (>89) Glucose 101 (74-104) mg/dL Calcium 9.1 (8.5-10.3) mg/dL Total Bilirubin 0.5 (0.2-1.0) mg/dL AST 12 (10-42) IU/L ALT 13 (10-60) IU/L Alkaline Phosphatase 68 (42-121) IU/L Total Protein 6.7 (6.4-8.9) g/dL Albumin 3.9 (3.2-5.5) g/dL Globulin 2.8 (2.1-4.2) g/dL Albumin/Globulin Ratio 1.4 (1.0-2.2) Lipase (11-82) U/L Blood Type O POSITIVE Blood Type Recheck Antibody Screen NEGATIVE 03/11/24 03/11/24 03/11/24 Range/Units 21:50 21:50 21:50 WBC 11.6 H (4.8-10.8) x10^3/uL RBC 5.36 (4.70-6.10) 10^6/uL Hgb 15.3 (14.0-18.0) g/dL Hct 47.0 (42.0-52.0) % MCV 87.7 (80.0-94.0) fL MCH 28.5 (27.0-31.0) pg MCHC 32.6 (32.0-36.0) g/dL RDW 13.9 (12.0-15.0) % Plt Count 312 (130-450) 10^3/uL MPV 9.4 (7.4-11.4) fL Neut # (Auto) 7.1 H (1.5-6.6) 10^3/uL Lymph # (Auto) 2.9 (1.5-3.5) 10^3/uL Anderson # (Auto) 1.3 H (0.0-1.0) 10^3/uL Eos # (Auto) 0.1 (0.0-0.7) 10^3/uL Baso # (Auto) 0.1 (0.0-0.1) 10^3/uL Absolute Nucleated RBC 0.00 x10^3/uL Nucleated RBC % 0.0 /100WBC PT 12.1 (9.9-12.6) secs INR 1.1 (0.8-1.2) APTT 30.1 (24.9-33.3) secs Sodium 137 (135-145) mmol/L Potassium 3.7 (3.5-4.5) mmol/L Chloride 105 (101-111) mmol/L Carbon Dioxide 23 (21-32) mmol/L Anion Gap 9.0 (6-13) BUN 34 H (6-20) mg/dL Creatinine 1.8 H (0.6-1.3) mg/dL Estimated GFR (MDRD) 38 L (>89) Glucose 82 (74-104) mg/dL Calcium 9.4 (8.5-10.3) mg/dL Total Bilirubin 0.5 (0.2-1.0) mg/dL AST 12 (10-42) IU/L ALT 14 (10-60) IU/L Alkaline Phosphatase 70 (42-121) IU/L Total Protein 7.1 (6.4-8.9) g/dL Albumin 4.1 (3.2-5.5) g/dL Globulin 3.0 (2.1-4.2) g/dL Albumin/Globulin Ratio 1.4 (1.0-2.2) Lipase 56 (11-82) U/L Blood Type Blood Type Recheck Antibody Screen 03/11/24 Range/Units 20:06 WBC (4.8-10.8) x10^3/uL RBC (4.70-6.10) 10^6/uL Hgb (14.0-18.0) g/dL Hct (42.0-52.0) % MCV (80.0-94.0) fL MCH (27.0-31.0) pg MCHC (32.0-36.0) g/dL RDW (12.0-15.0) % Plt Count (130-450) 10^3/uL MPV (7.4-11.4) fL Neut # (Auto) (1.5-6.6) 10^3/uL Lymph # (Auto) (1.5-3.5) 10^3/uL Anderson # (Auto) (0.0-1.0) 10^3/uL Eos # (Auto) (0.0-0.7) 10^3/uL Baso # (Auto) (0.0-0.1) 10^3/uL Absolute Nucleated RBC x10^3/uL Nucleated RBC % /100WBC PT (9.9-12.6) secs INR (0.8-1.2) APTT (24.9-33.3) secs Sodium (135-145) mmol/L Potassium (3.5-4.5) mmol/L Chloride (101-111) mmol/L Carbon Dioxide (21-32) mmol/L Anion Gap (6-13) BUN (6-20) mg/dL Creatinine (0.6-1.3) mg/dL Estimated GFR (MDRD) (>89) Glucose (74-104) mg/dL Calcium (8.5-10.3) mg/dL Total Bilirubin (0.2-1.0) mg/dL AST (10-42) IU/L ALT (10-60) IU/L Alkaline Phosphatase (42-121) IU/L Total Protein (6.4-8.9) g/dL Albumin (3.2-5.5) g/dL Globulin (2.1-4.2) g/dL Albumin/Globulin Ratio (1.0-2.2) Lipase (11-82) U/L Blood Type Blood Type Recheck O POSITIVE Antibody Screen ABX Reporting Has patient been on IV antibiotics over the past 48 hours?: No Sepsis Event Note (H) - Evaluation Current Stage of Sepsis: Resolved Assessment/Plan - Problem List (1) Hematoma of left iliopsoas muscle Impression: So far the patient's hemoglobin is stable. Continue to monitor H&H's closely. He has had a small drop in his hemoglobin but nothing significant. He will have a CBC in the morning. He still is having quite a bit of pain that is not well controlled. He has hydrocodone and IV Dilaudid available for pain Qualifiers: Encounter type: initial encounter Qualified Code(s): S70.12XA - Contusion of left thigh, initial encounter (2) Severe hypertension Impression: The patient has baroreflex instability diagnosed at the [facility] in 2022. He will continue home dose of captopril 12.5 mg daily. Carvedilol 6.25 mg in the morning and 12.5 mg in the evening. Chlorthalidone 50 mg daily as well as valsartan 80 mg in the morning and 40 mg midday. Continue to monitor his blood pressure quite closely. (3) CAD (coronary artery disease) Impression: He had a stent placed in 2021. His Plavix has been held. He will continue atorvastatin 80 mg daily as well as carvedilol. He also is on valsartan. No complaints of chest pain at this point (4) Eosinophilic asthma Impression: Currently no evidence of exacerbation. We will relabel his home bronchodilators for use here in the hospital. He will continue Singulair 10 mg daily as well he takes Nucala injections every 28 days at home (5) History of cancer Impression: The patient has a history of melanoma that has occurred on each arm. He also has a history of papillary carcinoma as well as clear-cell/renal cell carcinoma. He is status post right total nephrectomy. Currently no evidence of active cancer that we know of (6) Status post total thyroidectomy Impression: Continue Synthroid 175 mg daily (7) Diaphragm, eventration Impression: Quiescent. Continue Protonix (8) Tracheomalacia Impression: Quiescent (9) Hyperlipidemia Impression: Continue atorvastatin 80 mg daily (10) Solitary kidney Impression: The patient is status post right nephrectomy. Avoid nephrotoxic medications. (11) Chronic kidney disease, stage 3 Impression: The patient's current creatinine is 1.8. It looks like his baseline is about 1.4- 1.5. He does not meet criteria for an acute kidney injury at this time. Continue to check a chemistry panel daily and avoid nephrotoxic medications. He does have a solitary kidney (12) PTSD (post-traumatic stress disorder) Impression: Continue Lamictal 150 mg daily. (13) ADHD Impression: Continue home dose of Adderall 5 mg daily (14) Obesity (BMI 30.0-34.9) Impression: BMI is 32.4. Weight loss is recommended through dietary modification and exercise as tolerated (15) Leukocytosis Impression: Of undetermined significance at this point. Possibly reactive to his iliopsoas hematoma. Of course there is the risk of this becoming infected. Currently afebrile. Continue to monitor quite closely. Will add a procalcitonin onto his blood work.
[2024-03-12] MEDS: FOLIC ACID 1 MG TABLET PO SCH (13:46)
[2024-03-12] MEDS: MONTELUKAST 10 MG TABLET PO SCH ×2 (13:48→21:07)
[2024-03-12] MEDS: AZITHROMYCIN 250 MG TABLET PO SCH ×2 (13:48→21:07)
[2024-03-12] MEDS ORDERED: ZOLPIDEM 5 MG TABLET PO PRN (14:19)
--- NOTE | 2024-03-12 15:08 | PHARMACY PROGRESS NOTE ---
- Best Possible Medication History Admit Date and Time: 03/12/24 0442 Processed by: Pharmacy Medication History completed: Yes Patient Interview: Completed Secondary Source(s): Written medication list, Insurance records (PATIENT PROVIDED LIST AND INPUT, CROSS-REFERENCED WITH PHARMACY INSURANCE RECORDS) As the person ultimately responsible for medication therapy, providers are able to order a medication from an existing home medication list in [facility] via the "Reconcile Routine" prior to Confirmation of that medication by ict support engineer. Such practice is discouraged except when the physician, in their clinical judgment, deems that a medical need exists for a medication without regard to previous use.
[2024-03-12] MEDS ORDERED: lamoTRIgine 25 MG TABLET PO SCH (18:00)
[2024-03-12] MEDS ORDERED: AZITHROMYCIN 250 MG TABLET PO SCH (18:00)
[2024-03-12] MEDS: carvediloL 12.5 MG TABLET PO SCH (18:22)
[2024-03-12] MEDS ORDERED: ATORVASTATIN 40 MG TABLET PO SCH (21:00)
[2024-03-12] MEDS ORDERED: carvediloL 12.5 MG TABLET PO SCH ×2 (21:00)
[2024-03-12] MEDS: polyethylene glycoL 3350 17 GM PACKET PO SCH (21:06)
[2024-03-12] MEDS: PANTOPRAZOLE 40 MG TABLET PO SCH (21:06)
[2024-03-12] MEDS: FLUCONAZOLE 100 MG TABLET PO SCH (21:07)
[2024-03-12] MEDS: LOSARTAN 50 MG TABLET PO SCH (21:08)
[2024-03-12] MEDS: PATIENT OWN MED PO SCH (21:08)
[2024-03-12] MEDS: lamoTRIgine 25 MG TABLET PO SCH (21:08)
[2024-03-12] MEDS: hydroCHLOROthiazide 25 MG TABLET PO SCH (21:08)
[2024-03-13 05:33] LABS: BASOPHILS # (AUTO) 0.1 10^3/uL (0.0-0.1); BASOPHILS % (AUTO) 0.7 %; EOSINOPHILS # (AUTO) 0.2 10^3/uL (0.0-0.7); EOSINOPHILS % (AUTO) 1.6 %; HCT - HEMATOCRIT 44.4 % (42.0-52.0); LYMPHOCYTES # (AUTO) 2.6 10^3/uL (1.5-3.5); MEAN CORPUSCULAR HEMOGLOBIN 28.3 pg (27.0-31.0); MEAN CORPUSCULAR HGB CONC 31.5 g/dL (32.0-36.0); MEAN CORPUSCULAR VOLUME 89.9 fL (80.0-94.0); MEAN PLATELET VOLUME 9.4 fL (7.4-11.4); MONOCYTES # (AUTO) 1.2 10^3/uL (0.0-1.0); MONOCYTES % (AUTO) 11.4 %; NEUTROPHILS # (AUTO) 6.4 10^3/uL (1.5-6.6); NEUTROPHILS % (AUTO) 60.9 %; PLT - PLATELET COUNT 265 10^3/uL (130-450); RED BLOOD COUNT 4.94 10^6/uL (4.70-6.10); RED CELL DISTRIBUTION WIDTH 14.1 % (12.0-15.0); WHITE BLOOD COUNT 10.4 x10^3/uL (4.8-10.8)
[2024-03-13 05:51] LABS: ALBUMIN 3.6 g/dL (3.2-5.5); CALCIUM 8.6 mg/dL (8.5-10.3); CREATININE 1.7 mg/dL (0.6-1.3); MAGNESIUM 1.7 mg/dL (1.7-2.3); PHOSPHORUS 2.9 mg/dL (2.5-5.0); POTASSIUM 3.9 mmol/L (3.5-4.5)
[2024-03-13] MEDS: LEVOTHYROXINE 75 MCG TABLET PO SCH (06:20)
[2024-03-13] MEDS: LEVOTHYROXINE 100 MCG TABLET PO SCH (06:20)
[2024-03-13] MEDS: FOLIC ACID 1 MG TABLET PO SCH (06:21)
[2024-03-13] MEDS: ONDANSETRON 4 MG/2 ML VIAL IVP PRN (06:21)
[2024-03-13] MEDS: LOSARTAN 50 MG TABLET PO SCH (06:26)
[2024-03-13] MEDS: hydroCHLOROthiazide 25 MG TABLET PO SCH (06:26)
[2024-03-13] MEDS: PATIENT OWN MED PO SCH (06:26)
[2024-03-13] MEDS: FORMOTEROL FUMARATE NEB 20 MCG/2 ML INH SCH ×2 (08:54→11:01)
[2024-03-13] MEDS: OMEGA-3 ACID ETHYL ESTERS 1 GM CAPSULE PO SCH (08:58)
[2024-03-13] MEDS: MULTIVITAMIN W/MINERALS TABLET PO SCH (08:58)
[2024-03-13] MEDS ORDERED: MULTIVITAMIN PO SCH (09:00)
[2024-03-13] MEDS ORDERED: lisinopriL 5 MG TABLET PO SCH (09:00)
[2024-03-13] MEDS ORDERED: OMEGA-3 ACID ETHYL ESTERS 1 GM CAPSULE PO SCH (09:00)
[2024-03-13] MEDS ORDERED: CHLORTHALIDONE 25 MG PO SCH (09:00)
[2024-03-13] MEDS ORDERED: carvediloL 12.5 MG TABLET PO SCH (09:00)
[2024-03-13] MEDS: BUDESONIDE 0.5 MG/2 ML NEB INH SCH (11:00)
--- NOTE | 2024-03-13 13:27 | Discharge Plan ---
Discharge Plan Problem Reviewed?: Yes Disposition: Home, Self Care Condition: Fair Prescriptions: HYDROcodone/ACET 10/325 [[place] 10 mg/325 mg] 1 tab PO Q4HR PRN #18 tab PRN Reason: Pain 8 to 10 Diet: Cardiac Activity Restrictions: Activity as Tolerated Weight Bearing: Full Weight Health Concerns: Blood counts have remained stable. Please get in touch with your team of doctors for follow up. Please hold coreg for now. Check your pulde. If > 70 resume coreg, hold coreg for HR < 70 until you speak to your drapery supervisor Assessment: 1. Hematoma of left iliopsoas muscle The patient hemoglobin has remained stable and not dropped. Pain is adequately controlled on p.o. hydrocodone. He should follow-up closely with his outpatient team. For now his Plavix will be held. 2. Severe hypertension the patient has [place] reflex instability diagnosed at the [facility] in 2022. He should continue his home regimen of medications. However I would hold his Coreg. He has been bradycardic over the past 24 hours. I have asked the patient to check his pulse at home and if his heart rate is below 70 to hold his Coreg. He should follow-up with his outpatient team 3. Bradycardia Totally asymptomatic. He dropped his heart rates down into the 30s overnight. Continue to hold beta-alyx for now. 4. Coronary artery disease He had a stent placed in 2021. His Plavix will be held for now. He is going to discuss further with his drapery supervisor and is already reached out to him. He may transition to aspirin. He will continue high-dose atorvastatin as well as his valsartan. For now we will hold his Coreg due to his bradycardia. If this resolves his Coreg can be reinitiated 5. History of cancers The patient has a history of melanoma that has occurred on each arm. He also has a history of papillary carcinoma as well as clear-cell/renal cell carcinoma. He is status post total right nephrectomy. No evidence of active cancer that we know of at this point 6. Status post thyroidectomy Continue Synthroid 175 mcg daily 7. Eosinophilic asthma Currently no evidence of exacerbation. He will resume his home bronchodilators at discharge and continue Singulair 8. Diaphragm eventration Quiescent. Continue Protonix 9. Tracheomalacia Quiescent 9. Hyperlipidemia Continue atorvastatin 80 mg daily 10. Solitary kidney The patient is status post right nephrectomy. Avoid nephrotoxic medications 11. Chronic kidney disease stage III Stable. 12. PTSD Continue home dose of Lamictal 13. ADHD Continue home dose of Adderall 14. Obesity BMI 32.4 Weight loss is recommended through dietary modification and exercise as tolerated 15. Leukocytosis Of undetermined significance. His white blood cell count has normalized. This could be reactive to his hematoma. No signs of infection on the day of discharge No Smoking: If you smoke, Please STOP! Call for help. Follow-up with: Janny Weems MD [Primary Care Provider] -
--- NOTE | 2024-03-13 13:27 | DISCHARGE SUMMARY ---
Discharge Summary Admit Date: 03/12/24 Discharge Date: 03/13/24 Discharging Provider: Mey Barrera PA-C Primary Care Provider: Janny Weems MD Code Status: Attempt Resuscitation Condition at Discharge: Fair Discharge Disposition: 01 Home, Self Care - DIAGNOSES Discharge Diagnoses with Status of Each Condition: 1. Hematoma of left iliopsoas muscle The patient hemoglobin has remained stable and not dropped. Pain is adequately controlled on p.o. hydrocodone. He should follow-up closely with his outpatient team. For now his Plavix will be held. 2. Severe hypertension The patient has [place] reflex instability diagnosed at the [facility] in 2022. He should continue his home regimen of medications. However I would hold his Coreg. He has been bradycardic over the past 24 hours. I have asked the patient to check his pulse at home and if his heart rate is below 70 to hold his Coreg. He should follow-up with his outpatient team 3. Bradycardia Totally asymptomatic. He dropped his heart rates down into the 30s overnight. Continue to hold beta-alyx for now. 4. Coronary artery disease He had a stent placed in 2021. His Plavix will be held for now. He is going to discuss further with his medical transcription editor and is already reached out to him. He may transition to aspirin. He will continue high-dose atorvastatin as well as his valsartan. For now we will hold his Coreg due to his bradycardia. If this resolves his Coreg can be reinitiated 5. History of cancers The patient has a history of melanoma that has occurred on each arm. He also has a history of papillary carcinoma as well as clear-cell/renal cell carcinoma. He is status post total right nephrectomy. No evidence of active cancer that we know of at this point 6. Status post thyroidectomy Continue Synthroid 175 mcg daily 7. Eosinophilic asthma Currently no evidence of exacerbation. He will resume his home bronchodilators at discharge and continue Singulair 8. Diaphragm eventration Quiescent. Continue Protonix 9. Tracheomalacia Quiescent 9. Hyperlipidemia Continue atorvastatin 80 mg daily 10. Solitary kidney The patient is status post right nephrectomy. Avoid nephrotoxic medications 11. Chronic kidney disease stage III Stable. 12. PTSD Continue home dose of Lamictal 13. ADHD Continue home dose of Adderall 14. Obesity BMI 32.4 Weight loss is recommended through dietary modification and exercise as tolerated 15. Leukocytosis Of undetermined significance. His white blood cell count has normalized. This could be reactive to his hematoma. No signs of infection on the day of discharge - HPI History of Present Illness: From the admission H&P: 68 y old male with PMH HTN, hyperlipidmia, COPD, Recurrent ilio-psoas hematoma presented to ER due to sudden onset left groin pain since last night. Denies injury or fall, chest pain, SOB, Fever, nausea, vomiting, diarrhea, constipation, symptoms Pt is on plavix Labs showed leukocytosis, Orderly 1.8 CT abdomen/pelvis showed left ilio-psoas hematoma As per ER physician, he consulted with vasculat surgeon at [facility], Dr Patrice Marcos who recommended conservative management, pain control and monitor H/H Pt is admitted due to left groin pain due to left ilio-psoas hematoma - HOSPITAL COURSE Hospital Course: The patient is a very pleasant 68-year-old gentleman with an extensive past medical history. He has a history of malignant melanoma on the left upper arm and right forearm. 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 He has known coronary artery disease with a stent to the LAD. He has [place] reflex instability diagnosed at the [facility]. He has severe blood pressure swings with severe hypertension and then severe hypotension. He has a history of severe GI bleeds x 2 and he has had endoclips in place. He also has eosinophilic asthma and tracheomalacia. More recently the patient has had issues with spontaneous left iliopsoas hematomas. He has been hospitalized with this in the past. He follows with vascular surgery as an outpatient and has had an angiogram. No active bleeding or AVMs were noted. The patient presented to the emergency room with severe left groin pain reminiscent of his previous iliopsoas hematomas. CT scan of the abdomen and pelvis revealed prominent size of the left iliopsoas muscle suggestive of intramuscular hematoma not significantly changed from prior studies. He has an ill-defined internal hyperdensity extending to involve the proximal left iliopsoas muscle anterior to the left hip prosthesis. The emergency room physician consulted vascular surgery at [facility] and Dr. Naveed Marcos recommended conservative management with pain control and close monitoring of his H&H. Today the patient's hemoglobin has remained stable. Overall his pain seems to be adequately controlled on hydrocodone. He was a little bit bradycardic overnight and his Coreg has been held. At this point recommend discharge with close outpatient follow-up. I have recommended that he hold his Coreg if his heart rate is less than 70. He should follow-up with his outpatient team as soon as possible. At this point maximum hospital benefit has been reached. Patient will be discharged today in stable condition. - ALLERGIES Allergies/Adverse Reactions: Allergies Allergy/AdvReac Type Severity Reaction Status Date / Time aripiprazole Allergy Respiratory Verified 03/11/24 21:47 - MEDICATIONS Home Medications: Ambulatory Orders Medication Instructions Recorded Confirmed Montelukast [Singulair] 10 mg PO QPM 01/26/16 03/12/24 Dextroamphetamine/Amphetamine 5 mg PO DAILY 06/07/19 03/12/24 [Adderall Xr 5 mg Capsule] Folic Acid 5 mg PO DAILY 06/07/19 03/12/24 Multivitamin [Multiple Vitamins] 1 each PO DAILY 06/07/19 03/12/24 [place]-3S/Dha/Epa/Fish Oil [Fish 1 each PO DAILY 06/07/19 03/12/24 Oil 1,000 mg Softgel] Testosterone Cypionate 40 mg IM ONCE 06/07/19 03/12/24 Zolpidem Tartrate [Ambien] 10 mg PO HS PRN 06/07/19 03/12/24 lamoTRIgine [Lamictal] 150 mg PO DAILY 06/07/19 03/12/24 Atorvastatin Calcium [Lipitor] 80 mg PO HS 08/16/23 03/12/24 Azithromycin 250 mg PO DAILY 08/16/23 03/12/24 Chlorthalidone 50 mg PO DAILY 08/16/23 03/12/24 Ciclesonide [Alvesco] 2 puffs INH BID 08/16/23 03/12/24 Clopidogrel [Plavix] 75 mg PO DAILY 08/16/23 03/12/24 Ipratropium/Albuterol [Combivent 1 puffs INH QID 08/16/23 03/12/24 Respimat] Mepolizumab [Nucala] 100 mg SQ ONCE 08/16/23 03/12/24 Pantoprazole [Protonix] 40 mg PO BID 08/16/23 03/12/24 Salmeterol Xinafoate [Serevent 1 puffs INH BID 08/16/23 03/12/24 Diskus] Valsartan [Diovan] 40 mg PO QPM 08/16/23 03/12/24 Valsartan [Diovan] 80 mg PO DAILY 08/16/23 03/12/24 captopriL [Capoten] 12.5 mg PO TID 08/16/23 03/12/24 Clopidogrel [Plavix] 75 mg PO DAILY 03/12/24 03/12/24 Guanfacine HCl [Intuniv] 2 mg PO DAILY PM 03/12/24 03/12/24 Fluconazole [Diflucan] 200 mg PO QPM tab 03/13/24 Formoterol Fumarate [Perforomist] 20 mcg INH RTBID ml 03/13/24 HYDROcodone/ACET 10/325 [Colon 10 1 tab PO Q4HR PRN #18 tab 03/13/24 mg/325 mg] Levothyroxine [Synthroid] 75 mcg PO 0600 tab 03/13/24 Levothyroxine [Synthroid] 100 mcg PO 0600 tab 03/13/24 hydroCHLOROthiazide [Hydrodiuril] 75 mg PO 0700 tab 03/13/24 - PHYSICAL EXAM AT DISCHARGE General Appearance: positive: No acute distress Eyes Bilateral: positive: Normal inspection ENT: positive: ENT inspection nml Neck: positive: Nml inspection Respiratory: positive: Chest non-tender, No respiratory distress Cardiovascular: positive: Regular rate & rhythm, No murmur, No gallop. negative: Friction rub Abdomen: positive: Non-tender, No organomegaly, Nml bowel sounds, No distention Skin: positive: Color nml, No rash, Warm Extremities: positive: Non-tender, Full ROM Neurologic/Psychiatric: positive: Oriented x3, CN's nml (2-12) - LABS Result Diagrams: 03/13/24 05:23 03/13/24 05:23 - SEPSIS Current Stage of Sepsis: Resolved - QUALITY (Female Hip Fx Only) Was patient sent home on osteoporosis medication?: No - FOLLOW UP Follow Up: Patient should follow-up with vascular surgery, cardiology as well as his primary care physician as an outpatient - TIME SPENT Time Spent in Discharge (Minutes): 45
[2024-03-13 13:40] VITALS: BP 161/94; O2SAT 95
[2024-03-13] MEDS ORDERED: lamoTRIgine 25 MG TABLET PO SCH (17:15)
[2024-03-14] MEDS ORDERED: lamoTRIgine 25 MG TABLET PO SCH (07:00)
== END 2024-03-13 14:24 | disposition home or self-care (01) | DRG 555 ==
LOC: EDUNIT# → ED 21:25 → MS2 03-12 04:42
PROVIDERS: ADMIT Internal Medicine; ATTEND Physician Assistant
DX: S70.12XA Contusion of left thigh, initial encounter (principal); X58.XXXA Exposure to other specified factors, initial encounter; I45.2 Bifascicular block; M79.81 Nontraumatic hematoma of soft tissue; Q79.1 Other congenital malformations of diaphragm; J82.83 Eosinophilic asthma; N17.9 Acute kidney failure, unspecified; R00.1 Bradycardia, unspecified; I25.10 Atherosclerotic heart disease of native coronary artery without angina pectoris; E89.0 Postprocedural hypothyroidism; N18.30 Chronic kidney disease, stage 3 unspecified; I12.9 Hypertensive chronic kidney disease with stage 1 through stage 4 chronic kidney disease, or unspecified chronic kidney disease; F43.10 Post-traumatic stress disorder, unspecified; F90.9 Attention-deficit hyperactivity disorder, unspecified type; E66.9 Obesity, unspecified; D72.829 Elevated white blood cell count, unspecified; J44.9 Chronic obstructive pulmonary disease, unspecified; E78.00 Pure hypercholesterolemia, unspecified; R11.0 Nausea; Z68.32 Body mass index [BMI] 32.0-32.9, adult; Z79.02 Long term (current) use of antithrombotics/antiplatelets; Z79.899 Other long term (current) drug therapy; Z80.3 Family history of malignant neoplasm of breast; Z82.49 Family history of ischemic heart disease and other diseases of the circulatory system; Z85.53 Personal history of malignant neoplasm of renal pelvis; Z85.820 Personal history of malignant melanoma of skin; Z87.891 Personal history of nicotine dependence; Z90.5 Acquired absence of kidney; Z95.5 Presence of coronary angioplasty implant and graft
CPT/HCPCS: 36415; 74177; 80053; 80069; 83690; 83735; 84145; 85025; 85610; 85730; 86850; 86900; 86901; 93005; 96365; 96367; 96375; 96376; 99285; A9270; J1170; Q9967